=== PATIENT | female | born 1950 | race Caucasian/White ===

== ENCOUNTER 2020-08-12 12:51 | Outpatient (REF) | payer MEDICARE, SELFPAY ==
--- NOTE | 2020-08-12 | US_ITS ---
EXAMINATION: US EXTRACRANIAL CAROTID DUPLEX, BILATERAL CLINICAL INFORMATION: CAD COMPARISON: 05/25/2019, 04/17/2018 TECHNIQUE: Real-time ultrasound and Doppler techniques (integrating B-mode 2-D vascular images, Doppler spectral analysis and color-flow Doppler imaging) were utilized to interrogate the extracranial carotid arteries, the vertebral arteries and proximal subclavian arteries bilaterally. The degree of stenosis is determined by criteria similar to NASCET. FINDINGS: Right Side: 1. There is calcified atherosclerotic plaque seen in the bifurcation/proximal ICA region. 2. The common carotid artery PSV proximally is 93 cm/s and distally 85 cm/s. 3. The proximal internal carotid artery velocities are 179 cm/s systolic and 62 cm/s diastolic. 4. The proximal external carotid artery PSV is 174 cm/s. 5. The vertebral artery shows antegrade flow. 6. The subclavian artery waveforms are normal. Left Side: 1. There is calcified atherosclerotic plaque seen in the bifurcation/proximal ICA region. 2. The common carotid artery PSV proximally is 75 cm/s and distally 74 cm/s. 3. The proximal internal carotid artery velocities are 111 cm/s systolic and 39 cm/s diastolic. 4. The proximal external carotid artery PSV is 550 cm/s. 5. The vertebral artery shows antegrade flow. 6. The subclavian artery waveforms are normal. US/US carotid duplex BI IMPRESSION: 1. RIGHT: Moderate, hemodynamically significant stenosis of the proximal right internal carotid artery corresponding to a 50-79% stenosis by velocity criteria. 2. LEFT: Minimal, non-hemodynamically significant stenosis of the proximal left internal carotid artery corresponding to a 0-49% stenosis by velocity criteria. 3. Compared to the most recent prior exam, the disease on the right appears to have progressed from mild to moderate internal carotid artery stenosis, however the moderate stenosis seen on the current exam is in line with the study from 04/17/2018. Therefore, likely no significant change when compared over time. Disease on the left is stable.
== END 2020-08-12 12:52 | disposition home or self-care (01) ==
LOC: HO.HMGCX 12:51
PROVIDERS: PCP Internal Medicine; Visit Provider Internal Medicine Cardiovascular Disease
DX: I25.10 Atherosclerotic heart disease of native coronary artery without angina pectoris (principal); I65.23 Occlusion and stenosis of bilateral carotid arteries; E78.5 Hyperlipidemia, unspecified
CPT/HCPCS: 93880

== ENCOUNTER → 2020-09-01 09:53 | Outpatient (BNVA) | payer MEDICARE, BC, SELFPAY | PROVIDERS: PCP Internal Medicine; Visit Provider Surgery Vascular Surgery | DX: I65.23 Occlusion and stenosis of bilateral carotid arteries (principal) | CPT/HCPCS: 99212 ==

== ENCOUNTER → 2020-09-13 13:38 | Outpatient (BNVA) | payer MEDICARE, BC, SELFPAY | PROVIDERS: PCP Internal Medicine; Visit Provider Internal Medicine Cardiovascular Disease | DX: I25.118 Atherosclerotic heart disease of native coronary artery with other forms of angina pectoris (principal); I65.23 Occlusion and stenosis of bilateral carotid arteries | CPT/HCPCS: 93005; 99212 ==

== ENCOUNTER → 2020-09-21 08:36 | Outpatient (REF) | payer MEDICARE, BC, SELFPAY ==
--- NOTE | ~2020-09-21 | NM_ITS ---
EXERCISE MYOCARDIAL PERFUSION STUDY INDICATION: Chest pain, assess for coronary disease and ischemia TECHNIQUE: The patient was brought in for an exercise perfusion study on 09/21/2020. Patient performed exercise as per Omar protocol and was injected 25 mCi of sestamibi once target heart rate was achieved. Images were obtained using the SPECT gamma camera interlaced with the gating device. Images were obtained in supine position. Resting perfusion study was performed on 09/22/2020. Patient was administered 25 mCi of sestamibi intravenously at rest. Images were then obtained in supine position. Total DLP 62mGy-cm. Images were processed with the software and compared side to side in short axis, horizontal long axis and vertical long axis views. FINDINGS: Raw images were reviewed. The stress perfusion study showed diminished tracer uptake along the basal inferior wall and adjacent inferior septum; distal inferior septum and adjacent apex. There is improvement with CT attenuation correction but it does not normalizes completely. The gated study shows normal LV systolic function with calculated LVEF of 55%. LV cavity is normal in size. The gated study shows diminished contractility in the basal septum in parts of the apical septum/inferior septum. Resting study shows no significant perfusion abnormality. Gating at rest reveals normal wall motion with ejection fraction at 50%. The findings are consistent with reversible perfusion defect in the basal inferior septum; distal inferior wall and adjacent septum, apex. NM/NM cardiolite stress test IMPRESSION: 1. Myocardial perfusion imaging study shows ischemia along the inferior wall and inferior septum; most prominently seen in the basal inferior septum and towards the apex. 2. Gated LVEF is 55% during stress and 50% during rest.. 3. Transient ischemic dilatation not present. EKG component of the test reported separately.
--- NOTE | 2020-09-21 08:30 | CA_ITS ---
Acquisition Time: 2020-09-21 08:59:53 Total Exercise Time: 00:04:08 Test Indications: Chest Pain Medications: DILTIAZEM ASA CITALOPRAM HYDROXYZINE Protocol: OMAR Max HR: 150 BPM 100% of Pred: 150 BPM Max BP: 174/080 mmHG Max Work Load: 4.6 METS Exercise stress nuclear using Omar protocol. Test was modified as pt was becoming SOB and she was able to exercise for 4 min 8 sec. Pt denies any other anginal sx. EKG with multiple PVC's, Horizontal ST depressions seen inferiorly and laterally. Nuclear images to follow. Normotensive response to exercise. Test reviewed with Shan Morley METS 4.60 and TAPHR uo to 100 % Referred By: Steve Mai Overread By: Rosy Berry
== END ==
LOC: HO.CARD 08:36
PROVIDERS: Visit Provider Internal Medicine Cardiovascular Disease
DX: I25.119 Atherosclerotic heart disease of native coronary artery with unspecified angina pectoris (principal)
CPT/HCPCS: 78452; 93017; A9500

== ENCOUNTER → 2020-09-22 15:12 | Outpatient (BNVA) | payer MEDICARE, BC, SELFPAY | PROVIDERS: PCP Internal Medicine; Visit Provider Internal Medicine Cardiovascular Disease | DX: I25.118 Atherosclerotic heart disease of native coronary artery with other forms of angina pectoris (principal) | CPT/HCPCS: Q3014 ==

== ENCOUNTER 2020-09-23 13:17 | Outpatient (REF) | payer MEDICARE, BC, SELFPAY ==
[2020-09-23 14:23] LABS: Hemoglobin 9.6 g/dl (12.0-16.0); Mean Corpuscular Hemoglobin 21.9 pg (27.0-33.0); Mean Corpuscular Volume 73.1 fL (80-98); Mean Platelet Volume 10.6 fL (9.4-12.3); Platelet Count 392 X10*3/uL (160-400); Red Blood Count 4.38 X10*6/uL (4.20-5.50); Red Cell Distribution Width 22.4 % (11.0-16.0); White Blood Count 11.6 X10*3/uL (4.8-10.8)
[2020-09-23 14:30] LABS: Prothrombin Time 11.6 SEC (10.8-13.0)
[2020-09-23 14:43] LABS: Anion Gap 10 (12-20); Blood Urea Nitrogen 12 mg/dL (9-16); Calcium 9.1 mg/dL (8.4-10.2); Carbon Dioxide 24 mmol/L (22-29); Chloride 107 mmol/L (96-108); Estimated Glomerular Filt Rate > 60; Glucose Random 87 mg/dL (60-115); Potassium 4.1 mmol/L (3.3-5.1); Sodium 137 mmol/L (135-145)
== END 2020-09-23 13:18 | disposition home or self-care (01) ==
LOC: HO.LAB 13:17
PROVIDERS: PCP Internal Medicine; Visit Provider Internal Medicine Cardiovascular Disease
DX: I25.10 Atherosclerotic heart disease of native coronary artery without angina pectoris (principal)
CPT/HCPCS: 36415; 80048; 85027; 85610

== ENCOUNTER 2020-09-28 12:42 | Outpatient (REF) | payer MEDICARE, BC, SELFPAY ==
[2020-09-28 14:46] LABS: Iron 26 mcg/dL (30-160); Percent Iron Saturation 5 % (15-50); Total Iron Binding Capacity 507 mcg/dL (228-428); Unsaturated Iron Binding 481 ug/dL
[2020-09-28 14:54] LABS: Ferritin 3 ng/mL (10-250); TSH reflex Free T4 1.48 uIU/mL (0.32-4.0); Vitamin D 25-OH Total 38.9 ng/mL (>30)
[2020-09-29 19:01] LABS: Folate 11.8 ng/mL (> or = 4.0); Vitamin B12 525 pg/mL (200-900)
== END 2020-09-28 12:43 | disposition home or self-care (01) ==
LOC: HO.HMGCLDS 12:42
PROVIDERS: PCP Internal Medicine; Visit Provider Internal Medicine
DX: D64.9 Anemia, unspecified (principal); R12 Heartburn
CPT/HCPCS: 36415; 82306; 82607; 82728; 82746; 83540; 84443

== ENCOUNTER → 2020-10-03 07:31 | Outpatient (BNVA) | payer MEDICARE, BC, SELFPAY | PROVIDERS: Visit Provider Physician Assistant | DX: Z13.89 Encounter for screening for other disorder (principal) | CPT/HCPCS: Q3014 ==

== ENCOUNTER → 2020-10-13 12:38 | Outpatient (BNVA) | payer MEDICARE, BC, SELFPAY | PROVIDERS: PCP Internal Medicine; Visit Provider Internal Medicine Cardiovascular Disease | DX: Z01.810 Encounter for preprocedural cardiovascular examination (principal); Z79.899 Other long term (current) drug therapy; D64.9 Anemia, unspecified; I25.119 Atherosclerotic heart disease of native coronary artery with unspecified angina pectoris | CPT/HCPCS: 99212 ==

== ENCOUNTER 2020-10-24 11:51 | Outpatient (REF) | payer MEDICARE, BC, SELFPAY ==
[2020-10-24 14:40] LABS: MANUAL DIFF FLAG NO
[2020-10-24 14:49] LABS: Basophils Absolute Auto 0.1 X10*3/uL (0.0-0.2); Basophils Percent Auto 0.9 % (0-2); Eosinophils Absolute Auto 0.4 X10*3/uL (0.0-0.4); Eosinophils Percent Auto 3.7 % (0-4); Hematocrit 37.9 % (37-47); Hemoglobin 11.6 g/dl (12.0-16.0); Imm Gran Abs Auto 0.03 X10*3/uL (0.00-0.03); Imm Gran Pct Auto 0.3 % (0.0-0.4); Mean Corpuscular HGB Conc 30.6 g/dl (31.0-35.0); Mean Corpuscular Hemoglobin 24.8 pg (27.0-33.0); Mean Platelet Volume 11.1 fL (9.4-12.3); Monocytes Absolute Auto 0.6 X10*3/uL (0.1-1.2); Monocytes Percent Auto 5.4 % (2-11); Neutrophils Percent Auto 49.7 % (45-73); Platelet Count 337 X10*3/uL (160-400); Red Blood Count 4.68 X10*6/uL (4.20-5.50); Red Cell Distribution Width 29.2 % (11.0-16.0); White Blood Count 10.1 X10*3/uL (4.8-10.8)
[2020-10-24 15:25] LABS: Iron 46 mcg/dL (30-160); Percent Iron Saturation 11 % (15-50); Total Iron Binding Capacity 422 mcg/dL (228-428); Unsaturated Iron Binding 376 ug/dL
[2020-10-24 15:39] LABS: Ferritin 24 ng/mL (10-250)
== END 2020-10-24 11:52 | disposition home or self-care (01) ==
LOC: HO.HMGCLDS 11:51
PROVIDERS: PCP Internal Medicine; Visit Provider Internal Medicine
DX: D64.9 Anemia, unspecified (principal)
CPT/HCPCS: 36415; 82728; 83540; 85025

== ENCOUNTER 2020-10-26 09:26 | Day surgery (SDC) | payer MEDICARE, BC, SELFPAY ==
[2020-10-18 10:11] VITALS: BMI 23.8
--- NOTE | 2020-10-18 13:30 | P.CONAN_ITS ---
Documented by User: Josselyn Campos 10/25/20 09:31 HPI - Anesthesia Eval Consult details Narrative: 70yo F for Upper Endoscopy and Colonoscopy Per cardiology: Preprocedure cardiovascular evaluation in elderly woman with new onset iron deficiency anemia with some GI symptoms. These procedures are considered low risk from cardiovascular perspective. She does have some ischemia and prior coronary artery disease, however she is currently not having any progressive anginal symptoms and no signs or symptoms of heart failure. She is optimized to undergo surgery with low to intermediate risk for perioperative cardiovascular morbidity mortality. Continue her antianginal therapy in the perioperative.. Aspirin can be withheld for few days prior to the procedure if so required. Please consult us in the hilda procedural . If so required PMFSH Active Problems Active Problems: All Active Problems (Updated 10/18/20 @ 09:58 by Siomara Chapman) Carotid stenosis, bilateral (Acute) CAD (coronary artery disease) (Acute) Atypical angina (Acute) Preprocedural cardiovascular examination (Acute) Heartburn (Acute) Anemia (Acute) Hyperlipidemia (Acute) Coronary vasospasm (Acute) Past Medical History Medical History Anemia CAD (coronary artery disease) Coronary vasospasm Depression Dyslipidemia Heartburn Hx of carotid stenosis Hyperlipidemia Family History Family History Paternal Grandfather Stomach cancer Mother CAD (coronary artery disease) Brother No problems noted. Brother No problems noted. Brother No problems noted. Brother No problems noted. Sister No problems noted. Son No problems noted. Son No problems noted. Daughter No problems noted. Surgical History Surgical History History of dental surgery Hx of colonoscopy Status post cardiac catheterization Social History Social History Household Members: Children Are you a primary progressive care manager to a significant other at home: No Do you presently have visiting nurse or other home services: No Alcohol intake: current Alcohol intake frequency: holidays/special occasions only Alcohol type: wine Smoking Status: Former smoker Smoking Quit Date: Age 54 Use of substances other than those prescribed or required for medical reasons: No Have you been hit, kicked, punched, or otherwise hurt by someone within the past year? If so, by whom?: No Advance Directives: No Advance Directives Information Provided: No Advance Directives on File: No Recently lost weight without trying: No Current occupational status: retired Meds Allergies Allergy/AdvReac Type Severity Reaction Status Date / Time Penicillins Allergy Intermediate HIVES Verified 10/26/20 09:47 Home Medications Medication Instructions Recorded Confirmed Last Taken Type aspirin 81 mg tablet,delayed 81 mg PO DAILY 09/13/20 10/18/20 10/22/20 08:00 History release citalopram 20 mg tablet 20 mg PO DAILY tab 09/13/20 10/18/20 Unknown History rosuvastatin 40 mg tablet 40 mg PO DAILY tab 09/13/20 10/18/20 Unknown History Exam Exam Date and Time: October 18, 2020 1330 Height,Weight and Vital Signs: Height 5 ft 4 in Weight 63.049 kg Pertinent Lab Results Pertinent Lab Results: Laboratory Tests 09/23/20 09/23/20 13:35 13:35 WBC 11.6 H Hgb 9.6 L Hct 32.0 L Plt Count 392 Sodium 137 Potassium 4.1 Chloride 107 Carbon Dioxide 24 BUN 12 Creatinine 0.87 Narrative Narrative: EKG 09/2020 Normal sinus rhythm with PVCs with diffuse ST T wave changes more prominent in the inferior lead. NM cardiolite stress test IMPRESSION: 1. Myocardial perfusion imaging study shows ischemia along the inferior wall and inferior septum; most prominently seen in the basal inferior septum and towards the apex. 2. Gated LVEF is 55% during stress and 50% during rest.. 3. Transient ischemic dilatation not present. EKG component of the test reported separately. (Pt was scheduled for cath, but had to cancel d/t anemia.) Assessment and Plan Assessment Anesthesia Assessment: Chart Reviewed Documented by User: Bettye Martínez 10/26/20 11:06 [facility] Past Medical History Medical History Anemia CAD (coronary artery disease) Coronary vasospasm Depression Dyslipidemia Heartburn Hx of carotid stenosis Hyperlipidemia Family History Family History Paternal Grandfather Stomach cancer Mother CAD (coronary artery disease) Brother No problems noted. Brother No problems noted. Brother No problems noted. Brother No problems noted. Sister No problems noted. Son No problems noted. Son No problems noted. Daughter No problems noted. Surgical History Surgical History History of dental surgery Hx of colonoscopy Status post cardiac catheterization Social History Social History Household Members: Children Are you a primary progressive care manager to a significant other at home: No Do you presently have visiting nurse or other home services: No Alcohol intake: current Alcohol intake frequency: holidays/special occasions only Alcohol type: wine Smoking Status: Former smoker Smoking Quit Date: Age 54 Use of substances other than those prescribed or required for medical reasons: No Have you been hit, kicked, punched, or otherwise hurt by someone within the past year? If so, by whom?: No Advance Directives: No Advance Directives Information Provided: No Advance Directives on File: No Recently lost weight without trying: No Current occupational status: retired Meds Allergies Allergy/AdvReac Type Severity Reaction Status Date / Time Penicillins Allergy Intermediate HIVES Verified 10/26/20 09:47 Home Medications Medication Instructions Recorded Confirmed Last Taken Type aspirin 81 mg tablet,delayed 81 mg PO DAILY 09/13/20 10/18/20 10/22/20 08:00 History release citalopram 20 mg tablet 20 mg PO DAILY tab 09/13/20 10/18/20 Unknown History rosuvastatin 40 mg tablet 40 mg PO DAILY tab 09/13/20 10/18/20 Unknown History Exam Airway Mallampati Class: II TM Dist: >3cm Neck ROM: Full Denture: Upper Partial: Lower Loose/Missing/Broken Teeth: Yes Heart: RRR Lungs: CTA Assessment and Plan Assessment Anesthesia Assessment: Anesthesia Plan Discussed and Chart Reviewed Final Anesthetic Review NPO: Yes ASA Class: III Final Preanesthetic Review: Meds/Allgs Chart Reviewed, Consent Obtained/Reviewed and Anes Risks/Benef Reviewed Patient Risk: Intermediate Procedure Risk: Intermediate Anesthetic Plan Anesthetic Plan: MAC: Disposition: Standard PACU
[2020-10-26 09:54] VITALS: BP 137/64; PULSE 87; RESP 18; TEMP 37.2; O2SAT 97
[2020-10-26] MEDS: Lactated Ringers 1,000 ML 100 ML IVCONT (10:05)
--- NOTE | 2020-10-26 10:20 | MHC.SHP ---
Pre-Procedural Eval Section B Chief Complaint: anemia,heartburn Relevant Family History (Specify if Yes): No Relevant Social History: None Present Medications: see Short Stay Collaborative assessment Medical History: Significant History (Anemia CAD (coronary artery disease) Coronary vasospasm Depression Dyslipidemia Heartburn Hx of carotid stenosis Hyperlipidemia) History of Previous Operations: Relevant previous surgery/procedure and date(s) (History of dental surgery Hx of colonoscopy Status post cardiac catheterization) Allergies: Allergies Allergy/AdvReac Type Severity Reaction Status Date / Time Penicillins Allergy Intermediate HIVES Verified 10/26/20 09:47 Review of Systems Sugical H&P ROS: Negative: Constitution, Cardiovascular, Respiratory, Neurological, Psychiatric, Hem-Onc, Allergic/Immunologic, Gastrointestinal, Genitourinary, Musculoskeletal, Integumentary, Endocrine and Eyes/Ears/Nose/Throat Exam Surgical H&P Exam: Normal: HEENT, Normal: Heart, Normal: Lungs, Normal: Extremities, Normal: Abdomen, Normal: Skin and Normal: Neurological Plan Diagnosis/Plan: Unchanged I have reviewed the history and physical and performed a pertinent physical examination on my patient. No changes have occurred unless specified.
--- NOTE | 2020-10-26 10:37 | P.OP_ITS ---
Operative Note Operative Note Date of Service: 10/26/20 Narrative: Operative Information Procedure Description: EGD, Colonoscopy FLEXIBLE TRANSORAL UPPER GASTROINTESTINAL ENDOSCOPY AND COLONOSCOPY PROCEDURE NOTE UPPER ENDOSCOPY Consent: Indications for the procedure and potential complications of bleeding, perforation, reaction to medications and missed diagnosis were discussed with the patient and informed consent was obtained. Instrument: Olympus GIF H 190 J mid size upper endoscope Monitoring: Vital signs and clinical assessment, continuous EKG monitoring, Pulse oximetry, Carbon Dioxide monitoring and blood pressure monitoring were done throughout the procedure. Procedure: The patient was placed in the left lateral decubitis position and pre-procedure medications were administered and a bite block was placed. The endoscope was inserted into the mouth and advanced under direct vision to the third part of duodenum. A careful inspection was made as the upper endoscope was withdrawn including a retroflexed examination of the proximal stomach; Findings and interventions are described below. Findings: Larynx:normal Esophagus: GE junction at 34 cm, diaphragm hiatus at 38 cm, consistent with 4 cm sliding hiatal hernia, erosive esophagitis grade B noted, bx taken from GEJ Stomach: Normal mucosa. Biopsies were obtained. Grade 2 flap valve on retroflexed examination of the cardia. Duodenum: mild duodenitis, bx taken Intervention: Biopsies as noted above COLONOSCOPY Instrument: Olympus variable stiffness pediatric scope 190L Colonoscopy Monitoring: Vital signs and clinical assessment, continuous EKG monitoring, Pulse oximetry, Carbon Dioxide monitoring and blood pressure monitoring were done throughout the procedure. Colon withdrawal time was 14 minutes. Procedure: The patient was placed in the left lateral decubitis position and pre-procedure medications were administered. After a digital rectal examination of the ano-rectum, the video colonoscope was inserted into the rectum and advanced through the colon to the cecum/TI. The colonoscope was slowly withdrawn in a retrograde panoramic fashion and the colon mucosa was carefully examined including a retroflexed view of the rectum. Findings and interventions are described below. Procedure Difficulty:moderate Findings: Terminal Ileum-normal Cecum:normal Ascending Colon: 4-5 mm sessile polyp removed with forceps Transverse Colon -normal Descending Colon:normal Sigmoid Colon: moderate severe diverticulosis, with mucosal hypertrophy Rectum: Retroflexion with small internal hemorrhoids, grade I, lipoma also noted in distal rectum about 10-14 mm with pillow sign. Anorectum - normal Colon preparation: [place] Bowel Preparation Scale Right colon; 3 Transverse colon: 3 Left colon; 3 (0 = Unprepared colon segment with mucosa not seen due to solid stool that cannot be cleared. 1 = Portion of mucosa of the colon segment seen, but other areas of the colon segment not well seen due to staining, residual stool and/or opaque liquid. 2 = Minor amount of residual staining, small fragments of stool and/or opaque liquid, but mucosa of colon segment seen well. 3 = Entire mucosa of colon segment seen well with no residual staining, small fragments of stool or opaque liquid) Impression and Post Procedure Diagnosis: Endoscopy Findings: hiatal hernia, duodenitis erosive esophagitis Colonoscopy Findings: polyps internal hemorrhoids diverticular disease lipoma Plan: Await Pathology results Repeat Colonoscopy in 5 years or earlier if clinically indicated High fiber diet leaflet avoid straining at stool, epsom salts and sitz bath, anusol supps or cream as needed commence PP-pantoprazole 40 mg OD, can titrate down over time o/p capsule endoscopy Above findings were reviewed with the patient and relevant handouts were provided if indicated.
--- NOTE | 2020-10-26 10:37 | PM.OP ---
Brief Operative Note Date of Service: 10/26/20 Pre-op diagnosis: iron def anemia Post-op diagnosis: same Procedure: see op note Surgeon: Monique Adames MD Anesthesia: MAC Estimated blood loss (mL): 0 Condition: stable Disposition: PACU
[2020-10-26 11:22] VITALS: BP 91/40; PULSE 80; RESP 16; TEMP 36.6; O2SAT 97
[2020-10-26 11:37] VITALS: BP 106/63; PULSE 72; RESP 16; TEMP 36.4; O2SAT 97
== END 2020-10-26 12:30 | disposition home or self-care (01) ==
PROVIDERS: PCP Internal Medicine; Visit Provider Internal Medicine Gastroenterology
PROC: (CPT 45380; principal; 2020-10-26 10:30)
DX: D64.9 Anemia, unspecified (principal); D12.2 Benign neoplasm of ascending colon; K57.30 Diverticulosis of large intestine without perforation or abscess without bleeding; K63.89 Other specified diseases of intestine; K64.0 First degree hemorrhoids; D17.79 Benign lipomatous neoplasm of other sites; K21.9 Gastro-esophageal reflux disease without esophagitis; K22.10 Ulcer of esophagus without bleeding; K29.50 Unspecified chronic gastritis without bleeding; B96.81 Helicobacter pylori [H. pylori] as the cause of diseases classified elsewhere; K29.80 Duodenitis without bleeding; K44.9 Diaphragmatic hernia without obstruction or gangrene
CPT/HCPCS: 45380; 43239; 88305; 88342; J3010

== ENCOUNTER 2020-11-01 10:45 | Outpatient (REF) | payer MEDICARE, BC, SELFPAY ==
[2020-11-01 14:33] LABS: Alanine Aminotransferase 16 U/L (0-31); Anion Gap 15 (12-20); Aspartate Amino Transferase 19 U/L (5-31); Blood Urea Nitrogen 16 mg/dL (9-16); Calcium 9.5 mg/dL (8.4-10.2); Carbon Dioxide 23 mmol/L (22-29); Chloride 107 mmol/L (96-108); Cholesterol 186 mg/dL; Estimated Glomerular Filt Rate > 60; Glucose Fasting 98 mg/dL (60-99); HDL Cholesterol 84 mg/dL; LDL Cholesterol Calculated 88 mg/dl; Potassium 4.5 mmol/L (3.3-5.1); Sodium 140 mmol/L (135-145); Triglycerides 73 mg/dL
[2020-11-01 14:42] LABS: Vitamin D 25-OH Total 38.2 ng/mL (>30)
== END 2020-11-01 10:46 | disposition home or self-care (01) ==
LOC: HO.HMGCLDS 10:45
PROVIDERS: PCP Internal Medicine; Visit Provider Internal Medicine
DX: E78.5 Hyperlipidemia, unspecified (principal); I65.23 Occlusion and stenosis of bilateral carotid arteries; F33.42 Major depressive disorder, recurrent, in full remission
CPT/HCPCS: 36415; 80048; 80061; 82306; 84450; 84460

== ENCOUNTER → 2020-11-09 08:28 | Outpatient (BNVA) | payer MEDICARE, BC, SELFPAY | PROVIDERS: PCP Internal Medicine; Visit Provider Internal Medicine Gastroenterology | DX: D64.9 Anemia, unspecified (principal) | CPT/HCPCS: 91110 ==

== ENCOUNTER → 2020-12-02 10:42 | Outpatient (BNVA) | payer MEDICARE, BC, SELFPAY | PROVIDERS: PCP Internal Medicine; Visit Provider Internal Medicine Gastroenterology | DX: A04.8 Other specified bacterial intestinal infections (principal); D50.9 Iron deficiency anemia, unspecified; Z87.891 Personal history of nicotine dependence | CPT/HCPCS: Q3014 ==

== ENCOUNTER 2020-12-13 10:14 | Outpatient (REF) | payer MEDICARE, BC, SELFPAY ==
[2020-12-13 12:01] LABS: Hematocrit 39.5 % (37-47); Hemoglobin 12.5 g/dl (12.0-16.0); Mean Corpuscular HGB Conc 31.6 g/dl (31.0-35.0); Mean Corpuscular Volume 85.3 fL (80-98); Platelet Count 277 X10*3/uL (160-400); Red Blood Count 4.63 X10*6/uL (4.20-5.50); Red Cell Distribution Width 22.6 % (11.0-16.0); White Blood Count 9.8 X10*3/uL (4.8-10.8)
== END 2020-12-13 10:15 | disposition home or self-care (01) ==
LOC: HO.LAB 10:14
PROVIDERS: PCP Internal Medicine; Referring Provider Internal Medicine; Visit Provider Internal Medicine Cardiovascular Disease
DX: I25.118 Atherosclerotic heart disease of native coronary artery with other forms of angina pectoris (principal); D50.9 Iron deficiency anemia, unspecified; Z79.82 Long term (current) use of aspirin; Z79.899 Other long term (current) drug therapy
CPT/HCPCS: 36415; 85027; 99212

== ENCOUNTER → 2020-12-28 09:49 | Outpatient (BNVA) | payer MEDICARE, BC, SELFPAY | PROVIDERS: PCP Internal Medicine; Referring Provider Internal Medicine; Visit Provider Internal Medicine Gastroenterology ==

== ENCOUNTER 2021-03-24 12:16 | Outpatient (REF) | payer MEDICARE, BC, SELFPAY ==
--- NOTE | ~2021-03-24 | MM_ITS ---
EXAMINATION: MM SCREENING DIGITAL BREAST TOMOSYNTHESIS, BILATERAL CLINICAL INFORMATION: Screening. Asymptomatic. The lifetime risk of breast cancer based on the Tyrer-Cuzick Model is 3%. COMPARISON: Mammography: 10/06/2019, 01/14/2017, 05/27/2014 TECHNIQUE: Digital breast tomosynthesis is performed in both the craniocaudal and mediolateral oblique views along with computer-aided detection (CAD). Synthesized 2D images are generated from the tomosynthesis. Additional right MLO view is provided. FINDINGS: There are scattered areas of fibroglandular density (ACR BI-RADS breast composition Category b). There are no significant masses, abnormal calcifications, or other abnormalities. Parenchymal pattern is similar to prior studies. No significant changes. MM/MM tomosynthesis screening BI IMPRESSION: No mammographic evidence of malignancy. ASSESSMENT: BI-RADS 1: Negative RECOMMENDATION: Routine annual mammography screening. This patient's information was entered into a reminder system with a target due date for their next mammogram.
== END 2021-03-24 12:17 | disposition home or self-care (01) ==
LOC: HO.MAMMO 12:16
PROVIDERS: PCP Internal Medicine; Visit Provider Internal Medicine
DX: Z12.31 Encounter for screening mammogram for malignant neoplasm of breast (principal)
CPT/HCPCS: 77063; 77067

== ENCOUNTER → 2021-04-04 10:15 | Outpatient (BNVA) | payer MEDICARE, BC, SELFPAY | PROVIDERS: PCP Internal Medicine; Visit Provider Internal Medicine Gastroenterology | CPT/HCPCS: Q3014 ==

== ENCOUNTER → 2021-05-01 14:16 | Outpatient (BNVA) | payer MEDICARE, BC, SELFPAY | PROVIDERS: PCP Internal Medicine; Referring Provider Internal Medicine; Visit Provider Internal Medicine Cardiovascular Disease | DX: I25.10 Atherosclerotic heart disease of native coronary artery without angina pectoris (principal) | CPT/HCPCS: 99212 ==

== ENCOUNTER 2021-07-07 16:31 | Outpatient (REF) | payer MEDICARE, BC, SELFPAY ==
[2021-07-07 17:27] LABS: Influenza A PCR NEGATIVE (Negative); Influenza B PCR NEGATIVE (Negative); Resp Syncy Virus RNA Qual PCR NEGATIVE (Negative); SARS COV2 PCR INHOUSE NEGATIVE (Negative)
== END 2021-07-07 16:32 | disposition home or self-care (01) ==
LOC: HO.LNP 16:31
PROVIDERS: Visit Provider Internal Medicine
DX: R43.9 Unspecified disturbances of smell and taste (principal); Z20.822 Contact with and (suspected) exposure to COVID-19
CPT/HCPCS: 0241U

== ENCOUNTER 2021-08-28 10:25 | Outpatient (REF) | payer MEDICARE, BC, SELFPAY ==
--- NOTE | ~2021-08-28 | US_ITS ---
EXAMINATION: US EXTRACRANIAL CAROTID DUPLEX, BILATERAL CLINICAL INFORMATION: This is a 71-year-old female with carotid artery disease. COMPARISON: Comparison is made to a previous study dated 08/12/2020 which demonstrated 50-79% right internal carotid artery stenosis and 0-49% left internal carotid artery stenosis. TECHNIQUE: Real-time ultrasound and Doppler techniques (integrating B-mode 2-D vascular images, Doppler spectral analysis and color-flow Doppler imaging) were utilized to interrogate the extracranial carotid arteries, the vertebral arteries and proximal subclavian arteries bilaterally. The degree of stenosis is determined by criteria similar to NASCET. FINDINGS: Right Side: 1. There is moderate atherosclerotic plaque seen in the bifurcation/proximal ICA region. 2. The common carotid artery PSV proximally is 105 cm/s and distally 87 cm/s. 3. The proximal internal carotid artery velocities are 144 cm/s systolic and 40 cm/s diastolic. 4. The proximal external carotid artery PSV is 165 cm/s. There is no hemodynamically significant stenosis in the external carotid artery. 5. The vertebral artery shows antegrade flow. 6. The subclavian artery waveforms are normal. Left Side: 1. There is mild atherosclerotic plaque seen in the bifurcation/proximal ICA region. 2. The common carotid artery PSV proximally is 93 cm/s and distally 77 cm/s. 3. The proximal internal carotid artery velocities are 86 cm/s systolic and 33 cm/s diastolic. 4. The proximal external carotid artery PSV is 527 cm/s. There is a severe hemodynamically significant stenosis of the external carotid artery. This was seen previously. 5. The vertebral artery shows antegrade flow. 6. The subclavian artery waveforms are normal. An arrhythmia was noted during the duplex portion of the examination. US/US carotid duplex BI IMPRESSION: 1. RIGHT: Moderate, hemodynamically significant stenosis of the proximal right internal carotid artery corresponding to a 50-79% stenosis by velocity criteria. 2. LEFT: Minimal, non-hemodynamically significant stenosis of the proximal left internal carotid artery corresponding to a 0-49% stenosis by velocity criteria. 3. There is no change in the category severity of disease when compared to the previous study dated 08/12/2020.
== END 2021-08-28 10:26 | disposition home or self-care (01) ==
LOC: HO.US 10:25
PROVIDERS: Visit Provider Surgery Vascular Surgery
DX: I65.23 Occlusion and stenosis of bilateral carotid arteries (principal)
CPT/HCPCS: 93880

== ENCOUNTER → 2021-08-31 09:02 | Outpatient (BNVA) | payer MEDICARE, BC, SELFPAY | PROVIDERS: PCP Internal Medicine; Visit Provider Surgery Vascular Surgery | DX: I65.23 Occlusion and stenosis of bilateral carotid arteries (principal) | CPT/HCPCS: 99212 ==

== ENCOUNTER 2021-10-16 17:08 | Emergency (ER) | payer MEDICARE, BC, SELFPAY ==
--- NOTE | ~2021-10-16 | CT_ITS ---
EXAMINATION: CT HEAD WITHOUT CONTRAST CT CERVICAL SPINE WITHOUT CONTRAST CLINICAL INFORMATION: Fall. COMPARISON: None. TECHNIQUE: Imaging was performed from the skull base to vertex without intravenous administration of contrast. In addition, helical noncontrast CT imaging was acquired through the cervical spine and source images were reviewed along with axial reconstructions and sagittal and coronal MPRs. [This CT examination was performed using dose optimization techniques as appropriate, variously including the following: *Automated exposure control *Adjustment of mA and/or kV according to patient size (this includes techniques or standardized protocols for targeted exams where dose is matched to indication/reason for exam; i.e. extremities or head) *Use of iterative reconstruction technique] DLP: 1024 mGy-cm FINDINGS: HEAD: Small right frontal scalp hematoma. No skull fracture. No intracranial mass, hemorrhage, or midline shift is visualized. The ventricles and sulci are proportional. No extra-axial collections are identified. Small volume of mucosal thickening and possible small volume of fluid as well within the dependent bilateral maxillary and sphenoid sinuses. Frontal sinuses are hypoplastic. CERVICAL SPINE: There is no evidence of acute cervical spine fracture. Vertebral bodies remain normal in height. Cervical vertebrae have normal alignment. There is multilevel degenerative spondylosis of the cervical spine with disc height narrowing and endplate spurs and facet joint arthrosis No pre- or paravertebral soft tissue abnormality is identified. Limited assessment of the lung apices is unremarkable. CT/CT cervical spine wo con IMPRESSION: 1. No acute intracranial pathology. 2. No CT evidence of acute cervical spine fracture or traumatic subluxation
--- NOTE | ~2021-10-16 | CT_ITS ---
EXAMINATION: CT HEAD WITHOUT CONTRAST CT CERVICAL SPINE WITHOUT CONTRAST CLINICAL INFORMATION: Fall. COMPARISON: None. TECHNIQUE: Imaging was performed from the skull base to vertex without intravenous administration of contrast. In addition, helical noncontrast CT imaging was acquired through the cervical spine and source images were reviewed along with axial reconstructions and sagittal and coronal MPRs. [This CT examination was performed using dose optimization techniques as appropriate, variously including the following: *Automated exposure control *Adjustment of mA and/or kV according to patient size (this includes techniques or standardized protocols for targeted exams where dose is matched to indication/reason for exam; i.e. extremities or head) *Use of iterative reconstruction technique] DLP: 1024 mGy-cm FINDINGS: HEAD: Small right frontal scalp hematoma. No skull fracture. No intracranial mass, hemorrhage, or midline shift is visualized. The ventricles and sulci are proportional. No extra-axial collections are identified. Small volume of mucosal thickening and possible small volume of fluid as well within the dependent bilateral maxillary and sphenoid sinuses. Frontal sinuses are hypoplastic. CERVICAL SPINE: There is no evidence of acute cervical spine fracture. Vertebral bodies remain normal in height. Cervical vertebrae have normal alignment. There is multilevel degenerative spondylosis of the cervical spine with disc height narrowing and endplate spurs and facet joint arthrosis No pre- or paravertebral soft tissue abnormality is identified. Limited assessment of the lung apices is unremarkable. CT/CT head/brain wo con IMPRESSION: 1. No acute intracranial pathology. 2. No CT evidence of acute cervical spine fracture or traumatic subluxation
[2021-10-16 17:16] VITALS: BP 125/61; PULSE 95; RESP 18; O2SAT 96; BMI 27.3
[2021-10-16 17:22] VITALS: BP 128/74; PULSE 112; O2SAT 96
[2021-10-16 17:23] VITALS: TEMP 36.8
--- NOTE | 2021-10-16 17:25 | ECG_ITS ---
Test Reason : fall Blood Pressure : / mmHG Vent. Rate : 087 BPM Atrial Rate : 087 BPM P-R Int : 166 ms QRS Dur : 092 ms QT Int : 390 ms P-R-T Axes : 074 071 019 degrees QTc Int : 469 ms Sinus rhythm with occasional Premature ventricular complexes Otherwise normal ECG When compared with ECG of 21-APR-2013 11:10, Premature ventricular complexes are now Present Referred By: Viktor Alexander Electronically Signed By:LIAT POOLE
--- NOTE | 2021-10-16 17:26 | ED.FALL ---
HPI - Fall General Chief Complaint: Fall Stated Complaint: fall, + LOC with lacerations Time Seen by Provider: 10/16/21 17:16 Source: patient Mode of arrival: EMS Limitations: no limitations History of Present Illness HPI Narrative: Apparently patient had few drinks a lunchtime was at home with her son tripped and fell forward hitting her face to the ground no loss of consciousness has bleeding from the nose superficial abrasion on the nose and the face with hematoma to the right side of forehead no other injuries patient is on baby aspirin not on any blood thinner MD complaint: fall Related Data Home Medications Medication Instructions Recorded Confirmed aspirin 81 mg tablet,delayed 81 mg PO DAILY 09/13/20 05/01/21 release (Adult Low Dose Aspirin) citalopram 20 mg tablet 20 mg PO DAILY tab 09/13/20 05/01/21 pantoprazole 20 mg tablet,delayed 40 mg PO DAILY tab 12/02/20 05/01/21 release Previous Rx's Medication Instructions Recorded nitroglycerin 0.4 mg sublingual 0.4 mg SUBLINGUAL Q5M PRN 30 Days 09/13/20 tablet #20 tab ferrous fumarate 324 mg (106 mg 324 mg PO DAILY 30 Days #30 tab 09/28/20 iron) tablet ezetimibe 10 mg tablet 10 mg PO DAILY #30 tab 10/04/20 rosuvastatin 40 mg tablet 40 mg PO DAILY #90 tab 01/23/21 diltiazem HCl 240 mg 240 mg PO QAM #90 cap 05/31/21 capsule,extended release 24 hr albuterol sulfate 90 mcg/actuation 1 inh INHALATION QID PRN #6.7 g 07/07/21 aerosol inhaler azithromycin 250 mg tablet See Rx Instructions PO .COMPLEX #6 07/07/21 tab isosorbide mononitrate 30 mg 30 mg PO DAILY 90 Days #90 tab 09/04/21 tablet,extended release 24 hr Allergies Allergy/AdvReac Type Severity Reaction Status Date / Time Penicillins Allergy Intermediate HIVES Verified 10/16/21 17:22 Review of Systems Review of Systems: Yes all other systems are reviewed and are negative [facility] Past Medical History Medical History Anemia CAD (coronary artery disease) Coronary vasospasm Depression Dyslipidemia H. pylori infection Heartburn Hx of carotid stenosis Hyperlipidemia Iron deficiency anemia Recurrent major depression in partial remission Surgical History History of dental surgery Hx of colonoscopy Status post cardiac catheterization Family History Family History Paternal Grandfather Stomach cancer Mother CAD (coronary artery disease) Brother No problems noted. Brother No problems noted. Brother No problems noted. Brother No problems noted. Sister No problems noted. Son No problems noted. Son No problems noted. Daughter No problems noted. Social History Social History Household Members: Children Are you a primary critical care unit manager to a significant other at home: No Do you presently have visiting nurse or other home services: No Alcohol intake: current Alcohol intake frequency: holidays/special occasions only Alcohol type: wine Advance Directives: No Advance Directives Information Provided: No Current occupational status: retired Physical Exam Vital Signs: Vital Signs: Last Vital Signs Temp 98.2 F 10/16/21 19:10 Pulse 90 10/16/21 19:10 Resp 18 10/16/21 19:10 BP 146/76 H 10/16/21 19:10 Pulse Ox 97 10/16/21 19:10 BMI result Body Mass Index 27.3 Appearance: Alert. Oriented X3. No acute distress. Eyes: PERRLA, No Nystagmus HEENT: Pharynx normal. Oral Mucosa superficial 0.5 cm laceration to the nose bridge and right angle of the eye hematoma right forehead Neck: Normal inspection. Neck supple. No midline tenderness CVS: Normal heart rate and rhythm. Pulses normal. Respiratory: No respiratory distress. Equal air entry bilateral, no wheezing/rales/rhonchi Abdomen: Soft and nontender. Bowel sounds are present, no mass palpable, no CVA tenderness Skin: Skin warm and dry. Normal skin color. Normal skin turgor. Extremities: No lower extremity edema. No calf tenderness pelvis stable Neuro: Oriented X 3. No motor deficit. No sensory deficit.No cerebellar signs , cranial nerves II-XII intact Procedures Laceration Laceration 1: Site: face (nose) Size (cm): 0.5 Description: linear Depth: simple, single layer Skin layer closed with: other (dermabond) MDM - Fall MDM Narrative Medical decision making narrative: Patient status post mechanical fall after few drinks family was at the scene. CT scan of the head and CT neck is negative ,patient ambulatory in the ER will discharge patient home ECG Data Attestation: I personally reviewed and interpreted this ECG as follows: Interpretation: Normal sinus rhythm with heart rate 87 beats per minute normal intervals normal axis no acute STT wave changes no acute ischemia Discharge Plan Discharge Clinical Impression: Fall, Laceration of nose Patient Disposition: Home, Self-Care Instructions: Fall Prevention for Older Adults (ED), Facial Laceration (ED) Additional Instructions: Local care of the laceration as advised Cautions as advised Apply ice pack, take Tylenol for pain Prescriptions: No Action ezetimibe 10 mg tablet 10 mg PO DAILY Qty: 30 5RF rosuvastatin 40 mg tablet 40 mg PO DAILY Qty: 90 3RF diltiazem HCl 240 mg capsule,extended release 24hr 240 mg PO QAM Qty: 90 3RF isosorbide mononitrate 30 mg tablet extended release 24 hr 30 mg PO DAILY 90 Days Qty: 90 0RF ferrous fumarate 324 mg (106 mg iron) tablet 324 mg PO DAILY 30 Days Qty: 30 5RF Rx Instructions: take with orange juice for better azithromycin 250 mg tablet See Rx Instructions PO .COMPLEX Qty: 6 0RF Rx Instructions: take 500 mg today (day 1), then 250 mg for 4 days (days 2-5) PO albuterol sulfate 90 mcg/actuation HFA aerosol inhaler 1 inh inhalation QID PRN (Reason: shortness of breath or wheezing) Qty: 6.7 1RF citalopram 20 mg tablet 20 mg PO DAILY 0RF aspirin [Adult Low Dose Aspirin] 81 mg tablet,delayed release (DR/EC) 81 mg PO DAILY 0RF nitroglycerin 0.4 mg tablet, sublingual 0.4 mg sublingual Q5M PRN (Reason: chest pain) 30 Days Qty: 20 1RF Rx Instructions: do not exceed 3 doses per episode pantoprazole 20 mg tablet,delayed release (DR/EC) 40 mg PO DAILY 0RF Interventions: ED Discharge Assessment Last Done: 10/16/21 19:11 Discharge Date/Time: 10/16/21 19:11
--- NOTE | 2021-10-16 19:05 | PC.NURSE ---
Pt alert and oriented x4, calm and cooperative. Pt ambulated without issues, pt voided large amount in toilet. Pt states pain at abrasion sites on face, does not want meds. No IV in place. Vitals stable. Pt ambulated out of ER with son Daryn who drove her home.
[2021-10-16 19:10] VITALS: BP 146/76; PULSE 90; RESP 18; TEMP 36.8; O2SAT 97
== END 2021-10-16 19:11 | disposition home or self-care (01) ==
PROVIDERS: Emergency Provider Internal Medicine; PCP Internal Medicine
DX: S01.21XA Laceration without foreign body of nose, initial encounter (principal); S00.81XA Abrasion of other part of head, initial encounter; S00.83XA Contusion of other part of head, initial encounter; W01.198A Fall on same level from slipping, tripping and stumbling with subsequent striking against other object, initial encounter; Y93.9 Activity, unspecified; Y92.010 Kitchen of single-family (private) house as the place of occurrence of the external cause; Y99.9 Unspecified external cause status; Z79.82 Long term (current) use of aspirin
CPT/HCPCS: 12011; 70450; 72125; 93005; 99284

== ENCOUNTER → 2021-10-24 09:44 | Outpatient (BNVA) | payer MEDICARE, BC, SELFPAY | PROVIDERS: PCP Internal Medicine; Referring Provider Internal Medicine; Visit Provider Internal Medicine Cardiovascular Disease | DX: I25.10 Atherosclerotic heart disease of native coronary artery without angina pectoris (principal) | CPT/HCPCS: 99212 ==

== ENCOUNTER 2022-06-20 11:35 | Outpatient (REF) | payer MEDICARE, BC, SELFPAY ==
--- NOTE | ~2022-06-20 | MM_ITS ---
EXAMINATION: MM SCREENING DIGITAL BREAST TOMOSYNTHESIS, BILATERAL CLINICAL INFORMATION: Screening. Asymptomatic. COMPARISON: Mammography: 03/24/2021, 10/06/2019, 01/14/2017 TECHNIQUE: Digital breast tomosynthesis is performed in both the craniocaudal and mediolateral oblique views along with computer-aided detection (CAD). Synthesized 2D images are generated from the tomosynthesis. FINDINGS: There are scattered areas of fibroglandular density (ACR BI-RADS breast composition Category b). There are no significant masses, abnormal calcifications, or other abnormalities. Incidental small intramammary node again demonstrated central 9:00 right breast. There is no developing density. The axilla and skin contours are unremarkable. MM/MM tomosynthesis screening BI IMPRESSION: No mammographic evidence of malignancy. ASSESSMENT: BI-RADS 2: Benign RECOMMENDATION: Routine annual mammography screening. This patient's information was entered into a reminder system with a target due date for their next mammogram.
== END 2022-06-20 11:36 | disposition home or self-care (01) ==
LOC: HO.MAMMO 11:35
PROVIDERS: PCP Internal Medicine; Visit Provider Internal Medicine
DX: Z12.31 Encounter for screening mammogram for malignant neoplasm of breast (principal)
CPT/HCPCS: 77063; 77067

== ENCOUNTER 2022-08-27 09:49 | Outpatient (REF) | payer MEDICARE, BC, SELFPAY ==
--- NOTE | ~2022-08-27 | US_ITS ---
EXAMINATION: US EXTRACRANIAL CAROTID DUPLEX, BILATERAL CLINICAL INFORMATION: Carotid stenosis COMPARISON: 08/28/2021 TECHNIQUE: Real-time ultrasound and Doppler techniques (integrating B-mode 2-D vascular images, Doppler spectral analysis and color-flow Doppler imaging) were utilized to interrogate the extracranial carotid arteries, the vertebral arteries and proximal subclavian arteries bilaterally. The degree of stenosis is determined by criteria similar to NASCET. FINDINGS: Right Side: 1. There is moderate calcified atherosclerotic plaque seen in the bifurcation/proximal ICA region. 2. The common carotid artery PSV proximally is 96.2 cm/s and distally 93.2 cm/s. 3. The proximal internal carotid artery velocities are 153 cm/s systolic and 40.6 cm/s diastolic. 4. The proximal external carotid artery PSV is 202 cm/s. 5. The vertebral artery shows antegrade flow. 6. The subclavian artery waveforms are normal. Left Side: 1. There is mild atherosclerotic plaque seen in the bifurcation/proximal ICA region. 2. The common carotid artery PSV proximally is 90 cm/s and distally 64.3 cm/s. 3. The proximal internal carotid artery velocities are 101 cm/s systolic and 29.1 cm/s diastolic. 4. The proximal external carotid artery PSV is 112 cm/s. 5. The vertebral artery shows antegrade flow. 6. The subclavian artery waveforms are normal. US/US carotid duplex BI IMPRESSION: 1. RIGHT: Moderate, hemodynamically significant stenosis of the proximal right internal carotid artery corresponding to a 50-79% stenosis by velocity criteria. 2. LEFT: Minimal, non-hemodynamically significant stenosis of the proximal left internal carotid artery corresponding to a 0-49% stenosis by velocity criteria. 3. There is no change in the category severity of disease when compared to the previous study dated 08/28/2021.
== END 2022-08-27 09:50 | disposition home or self-care (01) ==
LOC: HO.HMGCX 09:49
PROVIDERS: PCP Internal Medicine; Visit Provider Surgery Vascular Surgery
DX: I65.23 Occlusion and stenosis of bilateral carotid arteries (principal)
CPT/HCPCS: 93880

== ENCOUNTER 2022-09-04 08:11 | Outpatient (REF) | payer MEDICARE, BC, SELFPAY ==
[2022-09-04 11:59] LABS: Hematocrit 43.2 % (37.0-47.0); Hemoglobin 14.5 g/dl (12.0-16.0); Mean Corpuscular HGB Conc 33.6 g/dl (31.0-35.0); Mean Corpuscular Hemoglobin 31.1 pg (27.0-33.0); Mean Corpuscular Volume 92.7 fL (80.0-98.0); Mean Platelet Volume 11.9 fL (9.4-12.3); Platelet Count 265 X10*3/uL (160-400); Red Blood Count 4.66 X10*6/uL (4.20-5.50); Red Cell Distribution Width 15.3 % (11.0-16.0); White Blood Count 8.7 X10*3/uL (4.8-10.8)
[2022-09-04 12:26] LABS: Anion Gap 13 (12-20); Blood Urea Nitrogen 12 mg/dL (9-16); Calcium 9.6 mg/dL (8.4-10.2); Carbon Dioxide 25 mmol/L (22-29); Chloride 109 mmol/L (96-108); Cholesterol 196 mg/dL; Estimated Glomerular Filt Rate > 60; Glucose Random 100 mg/dL (60-115); HDL Cholesterol 82 mg/dL; LDL Cholesterol Calculated 97 mg/dl; Potassium 4.4 mmol/L (3.3-5.1); Sodium 143 mmol/L (135-145); Triglycerides 86 mg/dL
[2022-09-06 14:28] LABS: CRP High Sensitivity 1.1 mg/L
== END 2022-09-04 08:12 | disposition home or self-care (01) ==
LOC: HO.HMGCLDS 08:11
PROVIDERS: PCP Internal Medicine; Visit Provider Internal Medicine Cardiovascular Disease
DX: I25.10 Atherosclerotic heart disease of native coronary artery without angina pectoris (principal); E78.5 Hyperlipidemia, unspecified
CPT/HCPCS: 36415; 80048; 80061; 85027; 86141

== ENCOUNTER 2022-09-18 09:50 | Outpatient (REF) | payer MEDICARE, BC, SELFPAY ==
--- NOTE | ~2022-09-18 | MM_ITS ---
EXAMINATION: BONE DENSITOMETRY CLINICAL INDICATION: Osteopenia. COMPARISON: Previous BD dated 10/06/2019 and baseline BD dated 11/19/2007. TECHNIQUE: Using a [employer] DXA System (software version: 13.1) manufactured by [employer], dual-energy x-ray absorptiometry was performed of the lumbar spine and left hip. The images are of good technical quality. Summary results are attached. FINDINGS: AP SPINE L1-L4: Current: BMD 1.158 g/cm2, Z-score 1.4, T-score -0.2, normal, 4.4% decrease from previous, 1.1% decrease from baseline (<5% change is not significant). Prior: BMD 1.211 g/cm2. Baseline: BMD 1.171 g/cm2. LEFT FEMUR, NECK: Current: BMD 0.864 g/cm2, Z-score 0.5, T-score -1.3, osteopenia. Prior: BMD 0.839 g/cm2. Baseline: BMD 0.893 g/cm2. LEFT FEMUR, TOTAL: Current: BMD 0.908 g/cm2, Z-score 0.7, T-score -0.8, normal, 6.2% decrease from previous, 9.3% decrease from baseline (<5% change is not significant). Prior: BMD 0.968 g/cm2. Baseline: BMD 1.001 g/cm2. IDENTIFIED RISK FACTORS: Menopause. HISTORY OF FRACTURE: None listed. MEDICATIONS: Calcium, vitamin D. MM/XR DEXA axial skeleton IMPRESSION: 1. DIAGNOSIS: Osteopenia based on the lowest T-score value of -1.3 in the femoral neck applying World Health Organization criteria. 2. 10-YEAR FRACTURE RISK PREDICTION, FRAX: Major osteoporotic fracture (clinical spine, forearm, hip or shoulder) 10.0%. Hip fracture 1.5%. 3. Treatment Recommendations: NOF guidelines recommend consideration for treatment in postmenopausal women and men age 50 and older presenting with the following: -A hip or vertebral (clinical or morphometric) fracture. -T-score less than or equal to -2.5 at the femoral neck or spine after appropriate evaluation to exclude secondary causes. -Low bone mass at the hip or spine and a 10-year fracture probability by FRAX of greater than or equal to 3% for hip fracture or greater than or equal to 20% for major osteoporotic fracture based on the [place] adapted WHO algorithm. 4. Other Recommendations: All treatment decisions require clinical judgment and consideration of individual patient factors, including patient preferences, comorbidities, previous drug use, risk factors not captured in the FRAX model (e.g. frailty, falls, vitamin D deficiency, increased bone turnover, interval significant decline in bone density) and possible under or overestimation of fracture risk by FRAX. Additional medical evaluation for secondary cause of low bone mineral density may be appropriate. FUTURE SCAN RECOMMENDATION: People with diagnosed cases of osteoporosis or at high risk for fracture should have regular bone mineral density tests. For patients eligible for Medicare, routine testing is allowed once every 2 years. The testing frequency can be increased to one year for patients who have rapidly progressing disease, those who are receiving or discontinuing medical therapy to restore bone mass, or have additional risk factors.
== END 2022-09-18 09:51 | disposition home or self-care (01) ==
LOC: HO.MAMMO 09:50
PROVIDERS: PCP Internal Medicine; Visit Provider Internal Medicine
DX: Z13.820 Encounter for screening for osteoporosis (principal); M85.852 Other specified disorders of bone density and structure, left thigh; Z78.0 Asymptomatic menopausal state
CPT/HCPCS: 77080

== ENCOUNTER → 2022-10-02 14:52 | Outpatient (BNVA) | payer MEDICARE, BC, SELFPAY | PROVIDERS: PCP Internal Medicine; Visit Provider Surgery Vascular Surgery | DX: I65.23 Occlusion and stenosis of bilateral carotid arteries (principal) | CPT/HCPCS: 99212 ==

== ENCOUNTER → 2022-10-30 09:55 | Outpatient (BNVA) | payer MEDICARE, BC, SELFPAY | PROVIDERS: PCP Internal Medicine; Referring Provider Internal Medicine; Visit Provider Internal Medicine Cardiovascular Disease | DX: I25.111 Atherosclerotic heart disease of native coronary artery with angina pectoris with documented spasm (principal) | CPT/HCPCS: 93005; 99212 ==

== ENCOUNTER 2023-06-26 11:36 | Outpatient (REF) | payer MEDICARE, BC, SELFPAY | END 2023-06-26 11:37 | disposition home or self-care (01) | LOC: HO.MAMMO 11:36 | PROVIDERS: PCP Internal Medicine; Visit Provider Internal Medicine | DX: Z12.31 Encounter for screening mammogram for malignant neoplasm of breast (principal) | CPT/HCPCS: 77063; 77067 ==

== ENCOUNTER → 2023-06-26 12:00 | Outpatient (BNV) | payer MEDICARE, BC, SELFPAY | PROVIDERS: PCP Internal Medicine; Visit Provider Radiology Diagnostic Radiology | DX: Z12.31 Encounter for screening mammogram for malignant neoplasm of breast (principal) | CPT/HCPCS: 77063; 77067 ==

== ENCOUNTER 2023-09-09 14:11 | Outpatient (REF) | payer MEDICARE, BC, SELFPAY ==
--- NOTE | ~2023-09-09 | US_ITS ---
EXAMINATION: US EXTRACRANIAL CAROTID DUPLEX, BILATERAL CLINICAL INFORMATION: Carotid artery stenosis COMPARISON: Carotid duplex on 08/27/2022 TECHNIQUE: Real-time ultrasound and Doppler techniques (integrating B-mode 2-D vascular images, Doppler spectral analysis and color-flow Doppler imaging) were utilized to interrogate the extracranial carotid arteries, the vertebral arteries and proximal subclavian arteries bilaterally. The degree of stenosis is determined by criteria similar to NASCET. FINDINGS: Right Side: 1. There is moderate atherosclerotic plaque seen in the bifurcation/proximal ICA region. 2. The common carotid artery PSV proximally is 95 cm/s and distally 88 cm/s. 3. The proximal internal carotid artery velocities are 160 cm/s systolic and 57 cm/s diastolic. 4. The proximal external carotid artery PSV is 191 cm/s. 5. The vertebral artery shows antegrade flow. 6. The subclavian artery waveforms are normal. Left Side: 1. There is mild atherosclerotic plaque seen in the bifurcation/proximal ICA region. 2. The common carotid artery PSV proximally is 85 cm/s and distally 74 cm/s. 3. The proximal internal carotid artery velocities are 100 cm/s systolic and 35 cm/s diastolic. 4. The proximal external carotid artery PSV is 150 cm/s. 5. The vertebral artery shows a grade flow. 6. The subclavian artery waveforms are normal. US/US carotid duplex BI IMPRESSION: 1. RIGHT: Moderate, hemodynamically significant stenosis of the proximal right internal carotid artery corresponding to a 50-79% stenosis by velocity criteria. 2. LEFT: Minimal, non-hemodynamically significant stenosis of the proximal left internal carotid artery corresponding to a 0-49% stenosis by velocity criteria. 3. There is no change in the category severity of disease when compared to the previous study dated 08/27/2022.
== END 2023-09-09 14:12 | disposition home or self-care (01) ==
LOC: HO.US 14:11
PROVIDERS: PCP Internal Medicine; Visit Provider Surgery Vascular Surgery
DX: I65.23 Occlusion and stenosis of bilateral carotid arteries (principal)
CPT/HCPCS: 93880

== ENCOUNTER 2023-10-03 12:49 | Outpatient (AMB) | payer MEDICARE, BC, SELFPAY ==
--- NOTE | 2023-10-03 12:57 | MHC.OFFVIS ---
Intake Vital Signs 10/03/23 12:58 10/03/23 13:06 Height 5 ft 4 in Weight 134 lb BMI 23.0 BP 138/74 136/76 Blood Pressure Location Rt brachial Lt brachial Position Sitting Sitting Intake Visit Reasons: 1 yr follow up Carotid US 09/09/2023 Intake Note: 1 yr follow up carotid US 09/09/23. Pt states no issues. States Hx of stroke and left eye vision loss Accompanied by: Self / Same As Patient Allergies Penicillins Allergy (Intermediate, Verified 10/03/23 13:03) HIVES HPI 1 yr follow up Carotid US 09/09/2023 HPI Details Very pleasant 73-year-old female presents for routine surveillance follow-up regarding her carotids. She has had no significant interval issues. She notes no lateralizing signs or symptoms, speech disturbances or visual field deficits. She reports that she has been doing much better. Of note she is being maintained on aspirin and statin. [facility] Medical History Osteopenia of left femoral neck Recurrent major depression in partial remission H. pylori infection Iron deficiency anemia Hx of carotid stenosis Depression Heartburn Anemia Hyperlipidemia Coronary vasospasm CAD (coronary artery disease) Dyslipidemia Surgical History History of dental surgery Hx of colonoscopy Status post cardiac catheterization Family History Paternal Grandfather Stomach cancer Mother CAD (coronary artery disease) Brother No problems noted. Brother No problems noted. Brother No problems noted. Brother No problems noted. Sister No problems noted. Son No problems noted. Son No problems noted. Daughter No problems noted. Social History Household Members: Children Are you a primary healthcare administrator to a significant other at home: No Do you presently have visiting nurse or other home services: No Alcohol intake: current Alcohol intake frequency: holidays/special occasions only Alcohol type: wine Current occupational status: retired Review of Systems Const All systems reviewed & are unremarkable except as noted in HPI and below Reports no additional complaints ENT Reports Normal hearing present Card Denies chest pain, Denies chest pain at rest, Denies chest pain with activity and Denies pedal edema Resp Denies cough GI Denies abdominal pain Musc Denies abnormal gait, Denies muscle cramps and Denies radiating pain into limb Skin/Breast Denies skin ulcer and Denies wounds Neuro Reports Normal hearing present and Denies abnormal gait Psych Reports no additional complaints Physical Exam Vital Signs: Last Vital Signs BP 136/76 10/03/23 13:06 BMI result Body Mass Index 23.0 Const General: cooperative, healthy appearing and comfortable Orientation/consciousness: oriented to person, oriented to place and oriented to time HEENT Head: Yes normal to inspection Neck Neck: Yes normal visual inspection Carotids: no bruits Chest Chest palpation & inspection: normal inspection of the chest Resp Effort & Inspection: normal respiratory effort and able to speak in complete sentences Auscultation: clear to auscultation bilaterally, no crackles, no rales, no rhonchi and no wheezes Cardio Rate: regular rate Rhythm: regular rhythm Heart sounds: S1 normal heart sound present and S2 normal heart sound present Bruits: no carotid bruits Peripheral pulses: Peripheral pulses 2+ throughout GI Inspection: Yes normal to inspection Skin Wounds: no wounds Hair: normal Neuro General: oriented to person, oriented to place and oriented to time Cranial nerves: Yes CN's II-XII intact bilaterally and Yes Normal hearing present Cognition (Neuro): normal cognition Motor exam (neuro): 5/5 motor strength present throughout Extrem Other: venous exam: No significant superficial varicosities or spider telangiectasias, minimal edema General: No clubbing, No cyanosis and No edema Psych Appearance: grossly normal Mental Status: mental status grossly normal Speech and movement: Normal speech and movement present Results Reviewed Results Reviewed: Ultrasound testing dated 09/09/2023 demonstrates right side 50-79% stenosis with a peak systolic velocity of only 160 in the left side of 0-49% stenosis no change from study year prior. Assessment & Plan Assessment & Plan (1) Carotid stenosis, bilateral: Code(s): I65.23 - Occlusion and stenosis of bilateral carotid arteries Plan: In short patient has asymptomatic carotid disease. We have reviewed signs and symptoms of a stroke. We also discussed risk factor modification inclusive a healthy diet low in cholesterol. The patient will follow up with us with surveillance ultrasound of the carotids 1 year. Should there be any changes or signs or symptoms of a stroke we will be happy to see them back sooner. Thank you for allowing us to participate in this patient's care. If there are any questions or concerns please do not hesitate to contact us. Orders: Orders US carotid duplex BI 1 Year I65.23 - Occlusion and stenosis of bilateral carotid arteries Coding Level of Care Code Est Pt Level 4 (63837) Diagnoses Carotid stenosis, bilateral I65.23
[2023-10-03 12:58] VITALS: BP 138/74; BMI 23.0
[2023-10-03 13:06] VITALS: BP 136/76
== END 2023-10-03 13:20 | disposition home or self-care (01) ==
PROVIDERS: PCP Internal Medicine; Visit Provider Surgery Vascular Surgery
DX: I65.23 Occlusion and stenosis of bilateral carotid arteries (principal)
CPT/HCPCS: 99213

== ENCOUNTER → 2023-10-03 12:49 | Outpatient (BNVA) | payer MEDICARE, BC, SELFPAY | PROVIDERS: PCP Internal Medicine; Visit Provider Surgery Vascular Surgery | DX: I65.23 Occlusion and stenosis of bilateral carotid arteries (principal) | CPT/HCPCS: 99212 ==

== ENCOUNTER 2023-10-28 09:24 | Outpatient (REF) | payer MEDICARE, BC, SELFPAY ==
[2023-10-28 13:25] LABS: Cholesterol 172 mg/dL (<200); HDL Cholesterol 80 mg/dL (>40); LDL Cholesterol Calculated 77 mg/dL (<100); Triglycerides 79 mg/dL (<150)
== END 2023-10-28 09:25 | disposition home or self-care (01) ==
LOC: HO.HMGCLDS 09:24
PROVIDERS: PCP Internal Medicine; Visit Provider Internal Medicine Cardiovascular Disease
DX: E78.5 Hyperlipidemia, unspecified (principal); I25.10 Atherosclerotic heart disease of native coronary artery without angina pectoris
CPT/HCPCS: 36415; 80061; 86141

== ENCOUNTER 2023-10-29 10:45 | Outpatient (AMB) | payer MEDICARE, BC, SELFPAY ==
[2023-10-29 10:51] VITALS: BP 120/70; PULSE 105; BMI 23.5
--- NOTE | 2023-10-29 10:51 | A.OFFVIS_ITS ---
Intake Vital Signs 10/29/23 10:51 Height 5 ft 4 in Weight 136 lb 10.986 oz BMI 23.5 BP 120/70 Blood Pressure Location Lt brachial Position Sitting Pulse 105 H Intake Visit Reasons: 1 year follow up Intake Note: 1 year follow-up with ekg hearts ok had covid last month still tried since [employer] Estimator Required: No Allergies Penicillins Allergy (Intermediate, Verified 10/03/23 13:03) HIVES Medication List - Last Reconciled 10/29/23 by Steve Mai MD aspirin (Adult Low Dose Aspirin) 81 mg PO DAILY diltiazem HCl 240 mg PO QAM ezetimibe 10 mg PO DAILY ferrous fumarate 324 mg PO DAILY 30 days isosorbide mononitrate ER 30 mg PO DAILY nitroglycerin 0.4 mg sublingual Q5M PRN 30 days pantoprazole 40 mg PO DAILY rosuvastatin 40 mg PO DAILY HPI HPI Comments History of Present Illness Details Carlene comes for follow-up. She said she had 2 viral illness is 1 COVID few months ago and more recently coming up with a viral illness with mostly upper respiratory symptoms with severe nasal congestion. She says she still feels weak but is coming around. She denies any exertional chest pain or worsening shortness of breath at current point time. She came in was noted to have some sinus tachycardia but with more ST depression in the inferior inferolateral lead compared to last year with sinus tachycardia. She denies any heart failure symptoms. She says she takes all her medications regularly. [facility], LATER [facility] Medical History Osteopenia of left femoral neck Recurrent major depression in partial remission H. pylori infection Iron deficiency anemia Hx of carotid stenosis Depression Heartburn Anemia Hyperlipidemia Coronary vasospasm CAD (coronary artery disease) Dyslipidemia Surgical History History of dental surgery Hx of colonoscopy Status post cardiac catheterization Family History Paternal Grandfather Stomach cancer Mother CAD (coronary artery disease) Brother No problems noted. Brother No problems noted. Brother No problems noted. Brother No problems noted. Sister No problems noted. Son No problems noted. Son No problems noted. Daughter No problems noted. Social History Household Members: Children Are you a primary health care coach to a significant other at home: No Do you presently have visiting nurse or other home services: No Alcohol intake: current Alcohol intake frequency: holidays/special occasions only Alcohol type: wine Current occupational status: retired Review of Systems Const Denies chills, Denies fatigue, Denies fever(s), Denies frequent falls, Denies weakness, Denies weight gain and Denies weight loss ENT Denies dizziness Card Denies chest pain, Denies leg edema, Denies lightheadedness, Denies palpitations, Denies dyspnea, Denies dyspnea on exertion, Denies orthopnea and Denies other (loss of consciousness) Resp Denies cough, Denies dyspnea and Denies dyspnea on exertion GI Denies hematochezia and Denies change in stool character Musc Denies abnormal gait, Denies muscle weakness, Denies numbness, Denies radiating pain into limb and Denies tingling Neuro Denies abnormal gait, Denies dizziness, Denies frequent falls, Denies numbness, Denies tingling and Denies weakness Endo Denies fatigue and Denies palpitations Physical Exam Vital Signs: Last Vital Signs Pulse 105 H 10/29/23 10:51 BP 120/70 10/29/23 10:51 BMI result Body Mass Index 23.5 Const General: cooperative, comfortable, no acute distress, alert, awake, anxious and well groomed Nutritional Appearance: thin Orientation/consciousness: patient oriented x3 Limitations: no limitations HEENT Head: Yes periorbital ecchymosis Neck Neck: Yes trachea midline, Yes supple and Yes no JVD Carotids: bruit Resp Effort & Inspection: normal respiratory effort Auscultation: clear to auscultation bilaterally Cardio Jugular venous distension: no JVD Palpation: normal PMI Rate: tachycardic Rhythm: regular rhythm Heart sounds: S1 normal heart sound present and S2 normal heart sound present GI Percussion: Yes normal to percussion Skin General skin exam: no rashes or lesions noted Neuro General: patient oriented x3 and no focal motor deficits Extrem General: Yes no clubbing, cyanosis or edema Psych Appearance: grossly normal Affect: Anxious affect present Office Procedures EKG Details: EKG shows sinus tachycardia with diffuse ST T wave changes in the inferior inferolateral leads suggestive of ischemia, could be rate related [id number], Complete Assessment & Plan Assessment & Plan (1) CAD (coronary artery disease): Code(s): I25.10 - Atherosclerotic heart disease of [place] coronary artery without angina pectoris Plan: CAD which was moderate by cardiac catheterization with superimposed coronary vaso spasm with no current symptoms suggestive angina although EKG looks quite abnormal with mild sinus tachycardia. Progressive coronary artery disease and severe myocardial ischemia needs to be ruled out. Will suggest exercise myocardial perfusion imaging in near future. Also suggest an echocardiogram to assess for LV systolic and diastolic function and evaluate for hypertensive heart disease. Further treatment based on the finding. Her LDL is improved with addition of ezetimibe but not at goal. Advise more intense diet modification. Follow-up lipids in 6 months time. Continue lifelong aspirin therapy. Continue current dual antianginal therapy with diltiazem as well as isosorbide. Continue participate in physical activity as tolerated. Will follow up in the clinic in 1 year's time, sooner p.r.n.. Thank you for allowing me to partake in the care Coding Level of Care Code Est Pt Level 4 (92274) Diagnoses CAD (coronary artery disease) I25.10 CPT Codes EKG - CPT: [id number], Complete ([id number])
== END 2023-10-29 11:18 | disposition home or self-care (01) ==
PROVIDERS: Visit Provider Internal Medicine Cardiovascular Disease
DX: I25.10 Atherosclerotic heart disease of native coronary artery without angina pectoris (principal)
CPT/HCPCS: 93010; 99214

== ENCOUNTER → 2023-10-29 10:45 | Outpatient (BNVA) | payer MEDICARE, BC, SELFPAY | PROVIDERS: Visit Provider Internal Medicine Cardiovascular Disease | DX: I25.10 Atherosclerotic heart disease of native coronary artery without angina pectoris (principal) | CPT/HCPCS: 93005; 99212 ==

== ENCOUNTER → 2023-12-02 07:55 | Outpatient (REF) | payer MEDICARE, BC, SELFPAY ==
--- NOTE | ~2023-12-02 | NM_ITS ---
Exercise Myocardial perfusion study Indication: Chest pain to evaluate for myocardial ischemia Technique: The patient was brought in for an exercise perfusion study on 12/02/2023. Patient performed exercise as per Omar protocol and was injected 25 mCi of sestamibi was given intravenously one target HR was achieved. Images were obtained using the SPECT gamma camera interlaced with the gating device. Images were obtained in supine position. Resting perfusion study was performed on 12/03/2023. Patient was administered 25 mCi of sestamibi intravenously at rest. Images were then obtained in supine position. Images obtained with and without CT attenuation. Total DLP 83 mGy-cm. Images were processed with the software and compared side to side in short axis, horizontal long axis and vertical long axis views. Findings: The stress perfusion study showed non attenuated images show large area of moderately reduced uptake in the inferior, inferoseptal and septal as well as absent uptake in the apex of the LV myocardium. Attenuated corrected images are suboptimal. The gated study shows normal LV systolic function with calculated LVEF of 68%. LV cavity is mildly dilated in size. The gated study shows normal systolic wall thickening and contraction of all segments. There is mild transient ischemic dilation. Resting study shows non attenuated images show normalized uptake in the inferior, apex, inferoseptal and septal wall of the LV myocardium. Gating at rest reveals normal systolic wall motion with ejection fraction at 58%. The findings are consistent with large area all moderate to severe intensity ischemia of the inferior, inferoseptal and septal as well as apical wall of the LV myocardium.. NM/NM cardiolite stress test Impression: 1. Large area all moderate to severe intensity inferior, inferoseptal, septal and apical ischemia RCA territory. 2. Gated LVEF is 68% 3. Transient ischemic dilatation present Stress EKG is positive for ischemia
--- NOTE | 2023-12-02 08:00 | CA_ITS ---
Acquisition Time: 2023-12-02 09:31:01 Total Exercise Time: 00:05:00 Test Indications: CP Medications: Protocol: RIC Max HR: 131 BPM 89% of Pred: 147 BPM Max BP: 148/076 mmHG Max Work Load: 6.0 METS Exercise stress test exercise 5 min achieivng 86% MPHR, with moderate SOB, without chest discomfort, with isolated PVCs and PACs, with normotensive resposne to exercise, with horizontal ST depressions 1-2 mm leads 2, 3, aVF, V3-V6. Breathing returned to baseline with rest. Nuclear images pending. Test reviewed with Dr. Torrez Referred By: Steve Mai Overread By: Margaret Molina
--- NOTE | 2023-12-02 08:00 | CA_ITS ---
Transthoracic Echocardiogram Patient (Last, First, Middle): Carlene Gannon M Gender: Female Date of : 1950 Age: 73 Procedure Date: 12/02/2023 Procedure Type: Transthoracic Echocardiogram Location: OP Height: 162. cm Weight: 61.24 kg BSA: 1.65 m2 Heart Rate: 71 bpm BP: 130 / 60 mmHg Paper Products Printer: DUSTIN Referring MD: Steve Mai MD Symptoms: I25.10 - Atherosclerotic heart disease of [place] coronary artery without... Study Quality: Fair ECG Rhythm: Sinus Conclusions: - The left ventricular systolic function is normal. The calculated ejection fraction is 63% by biplane method. - There is moderate calcification of the aortic valve. There is mild to moderate aortic valve stenosis. - Moderate plaque is seen in the sinuses of Valsalva. Findings Left Ventricle Normal left ventricular cavity size. There is normal left ventricular wall thickness. The left ventricular systolic function is normal. The calculated ejection fraction is 63% by biplane method. There is no evidence of regional wall motion abnormalities. Diastolic function is normal for age. LV peak GLS -16.8%. Right Ventricle Normal right ventricular cavity size and systolic function. Atria Both atria are normal in size. Aortic Valve There is moderate calcification of the aortic valve. There is mild to moderate aortic valve stenosis. There is no aortic valve regurgitation. Mitral Valve The mitral valve appears normal. There is trace mitral valve regurgitation. There is no mitral valve stenosis. Pulmonic Valve The pulmonic valve is likely normal. Tricuspid Valve Normal tricuspid valve structure. There is trace tricuspid valve regurgitation. There is no evidence of pulmonary hypertension. Great Vessels The asc aorta is normal in size. Moderate plaque is seen in the sinuses of Valsalva. Venous The inferior vena cava is normal in size and collapses greater than 50% with inspiration. Pericardium/Pleural There is no evidence of pericardial effusion. Prior Study Comparison Changes noted compared to prior study dated: 05/05/2014. see comment on aortic stenosis. Measurements 2D Linear Measurements IVSd: 1.01 0.6-0.9/0.6-1.0 cm LVIDd: 4.15 3.9-5.3/4.2-5.9 cm LVIDd Index: 2.52 2.4-3.2/2.2-3.1 cm/m2 LVIDs: 2.87 2.0-3.6 cm LVPWd: 0.91 0.7-1.1 cm LA Diam: 3.10 2.7-3.8/3.0-4.0 cm LAIDs Index: 1.88 1.5-2.3 cm/m2 LV Mass: 158.15 67-162/88-224 g LV Mass Index: 95.85 43-95/49-115 g/m2 LVOT Diam: 1.80 3.0+(-)1.3 cm 2D Systolic Function EF 4C: 63.70 >55% EF 2C: 59.10 >55% EF BiP: 62.70 >55% Mitral Valve MV Pk E: 0.98 MV PK A: 0.86 MV Decel Time: 235.00 E/A: 1.10 E'Lateral: 9.79 E'Medial: 7.62 E/E' Med: 12.90 E/E' Lat: 10.00 PHT: 69.00 MVA PHT: 3.19 Decel [place]: 4.17 Aortic Valve AoV Pk Wayne: 2.41 AoV Mn Wayne: 1.66 AoV VTI: 0.55 AoV Pk Grad: 23.00 Aov Mn Grad: 12.00 KYLIE Cont.VTI: 1.05 LVOT LVOT Pk Wayne: 0.94 LVOT Mn Wayne: 0.71 LVOT VTI: 0.23 LVOT Pk Grad: 3.00 LVOT Mn Grad: 2.00 LVOT Diam: 1.80 LVOT Area: 2.54 Diastolic Function MV Pk E: 0.98 MV Pk A: 0.86 E/A: 1.10 E'Medial: 7.62 E/E' Med: 12.90 E' Laterial: 9.79 E/E' Lat: 10.00 Right Ventricle TAPSE (mm): 21.60 TVS' Wayne: 8.16 Tricuspid Valve TR Pk Wayne: 2.05 TR Pk Grad: 17.00 RA Press: 3.00 RVSP: 20.00 Great Vessels Aorta Sinus of Valsalva: 2.70 2.0-3.5 cm Ao Asc: 2.90 2.1-3.4 cm Pulmonary Valve PV Pk Wayne: 1.36 Peak PV Grad: 7.00 Updated in Other Vendor System with Status of Final Daniel Torrez MD electronically signed on 12/02/2023 10:12:43 AM with status of Final
== END ==
LOC: HO.CARD 07:55
PROVIDERS: PCP Internal Medicine; Visit Provider Internal Medicine Cardiovascular Disease
DX: R07.9 Chest pain, unspecified (principal); I25.10 Atherosclerotic heart disease of native coronary artery without angina pectoris
CPT/HCPCS: 78452; 93017; 93306; 93356; A9500

== ENCOUNTER → 2023-12-02 08:00 | Outpatient (BNV) | payer MEDICARE, BC, SELFPAY | PROVIDERS: PCP Internal Medicine; Visit Provider Internal Medicine | DX: R07.9 Chest pain, unspecified (principal) | CPT/HCPCS: 78452; 93016; 93018; 93350; 93356 ==

== ENCOUNTER 2024-01-02 10:09 | Outpatient (REF) | payer MEDICARE, BC, SELFPAY ==
[2024-01-02 13:34] LABS: MANUAL DIFF FLAG NO
[2024-01-02 13:43] LABS: Basophils Absolute Auto 0.1 X10*3/uL (0.0-0.2); Eosinophils Absolute Auto 0.5 X10*3/uL (0.0-0.4); Eosinophils Percent Auto 5.8 % (0-4); Hematocrit 41.4 % (37.0-47.0); Hemoglobin 13.6 g/dl (12.0-16.0); Imm Gran Abs Auto 0.03 X10*3/uL (0.00-0.03); Imm Gran Pct Auto 0.4 % (0.0-0.4); Lymphocytes Percent Auto 36.2 % (20-40); Mean Corpuscular HGB Conc 32.9 g/dl (31.0-35.0); Mean Corpuscular Hemoglobin 30.2 pg (27.0-33.0); Mean Corpuscular Volume 91.8 fL (80.0-98.0); Mean Platelet Volume 11.5 fL (9.4-12.3); Monocytes Absolute Auto 0.5 X10*3/uL (0.1-1.2); Monocytes Percent Auto 6.3 % (2-11); Neutrophils Absolute Auto 4.2 x10*3/uL (2.0-8.3); Neutrophils Percent Auto 50.3 % (45-73); Platelet Count 230 X10*3/uL (160-400); Red Blood Count 4.51 X10*6/uL (4.20-5.50); Red Cell Distribution Width 14.6 % (11.0-16.0); White Blood Count 8.3 X10*3/uL (4.8-10.8)
[2024-01-02 13:46] LABS: INTERNATIONAL NORM RATIO 0.9 (0.9-1.1); Prothrombin Time 10.7 SEC (11.1-13.3)
[2024-01-02 14:19] LABS: Anion Gap 13 (12-20); Blood Urea Nitrogen 12 mg/dL (9-16); Calcium 9.9 mg/dL (8.4-10.2); Carbon Dioxide 23 mmol/L (22-29); Chloride 108 mmol/L (96-108); Estimated Glomerular Filt Rate > 60; Glucose Random 84 mg/dL (60-115); Potassium 3.9 mmol/L (3.3-5.1); Sodium 140 mmol/L (135-145)
== END 2024-01-02 10:10 | disposition home or self-care (01) ==
LOC: HO.HMGCLDS 10:09
PROVIDERS: PCP Internal Medicine; Visit Provider Internal Medicine Cardiovascular Disease
DX: R94.39 Abnormal result of other cardiovascular function study (principal); I25.118 Atherosclerotic heart disease of native coronary artery with other forms of angina pectoris; E78.5 Hyperlipidemia, unspecified
CPT/HCPCS: 36415; 80048; 85025; 85610

== ENCOUNTER → 2024-01-07 23:59 | Outpatient (BNV) | payer MEDICARE, BC, SELFPAY | PROVIDERS: PCP Internal Medicine; Visit Provider Internal Medicine Cardiovascular Disease | DX: I25.118 Atherosclerotic heart disease of native coronary artery with other forms of angina pectoris (principal) | CPT/HCPCS: 93458; 93571; 93572; 99152 ==

== ENCOUNTER 2024-02-25 09:45 | Outpatient (AMB) | payer MEDICARE, BC, SELFPAY ==
--- NOTE | 2024-02-25 09:46 | MHC.OFFVIS ---
Vital Signs 02/25/24 09:47 Height 5 ft 4 in Weight 130 lb 1.164 oz BMI 22.3 BP 120/78 Blood Pressure Location Lt brachial Position Sitting Pulse 67 Intake Visit Reasons: Heart Surgery Intake Note: Follow-up post CABG hearts doing good Allergies Penicillins Allergy (Intermediate, Verified 10/03/23 13:03) HIVES Medication List - Last Reconciled 02/25/24 by Steve Mai MD aspirin (Adult Low Dose Aspirin) 81 mg PO DAILY ezetimibe 10 mg PO DAILY metoprolol tartrate 50 mg PO BID nitroglycerin 0.4 mg sublingual Q5M PRN 30 days rosuvastatin 40 mg PO DAILY HPI Comments Details: Carlene comes for follow-up after recent open-heart surgery about a month ago. She said she is doing well but continues to have soreness at the sternotomy site as well as numbness in the left breast. She is slowly recuperating but still having limited energy. During the recording she had developed atrial fibrillation and she was started on amiodarone. No oral anticoagulation this was self-limiting. Amiodarone as to be discontinued 1 week's time as per her. Currently taking aspirin, metoprolol as well as ezetimibe and rosuvastatin therapy. Denies any anginal sounding chest discomfort. Denies any heart failure symptoms. Breathing is improved. Currently undergoing home physical therapy. [facility] Medical History Osteopenia of left femoral neck Recurrent major depression in partial remission H. pylori infection Iron deficiency anemia Hx of carotid stenosis Depression Heartburn Anemia Hyperlipidemia Coronary vasospasm CAD (coronary artery disease) Dyslipidemia Surgical History History of dental surgery Hx of colonoscopy Status post cardiac catheterization Family History Paternal Grandfather Stomach cancer Mother CAD (coronary artery disease) Brother No problems noted. Brother No problems noted. Brother No problems noted. Brother No problems noted. Sister No problems noted. Son No problems noted. Son No problems noted. Daughter No problems noted. Social History Household Members: Children Are you a primary long term care phlebotomist to a significant other at home: No Do you presently have visiting nurse or other home services: No Alcohol intake: current Alcohol intake frequency: holidays/special occasions only Alcohol type: wine Current occupational status: retired Review of Systems Const Denies chills, Denies fatigue, Denies fever(s), Denies frequent falls, Denies weakness, Denies weight gain and Denies weight loss ENT Denies dizziness Card Denies chest pain, Denies leg edema, Denies lightheadedness, Denies palpitations, Denies dyspnea, Denies dyspnea on exertion, Denies orthopnea and Denies other (loss of consciousness) Resp Denies cough, Denies dyspnea and Denies dyspnea on exertion GI Denies hematochezia and Denies change in stool character Musc Denies abnormal gait, Denies muscle weakness, Denies numbness, Denies radiating pain into limb and Denies tingling Neuro Denies abnormal gait, Denies dizziness, Denies frequent falls, Denies numbness, Denies tingling and Denies weakness Endo Denies fatigue and Denies palpitations Physical Exam Vital Signs: Last Vital Signs Pulse 67 02/25/24 09:47 BP 120/78 02/25/24 09:47 BMI result Body Mass Index 22.3 Const General: cooperative, comfortable, no acute distress, alert, awake, anxious, well groomed and other (Tired appearing ) Nutritional Appearance: thin Orientation/consciousness: patient oriented x3 Limitations: no limitations HEENT Head: Yes periorbital ecchymosis Neck Neck: Yes trachea midline, Yes supple and Yes no JVD Carotids: bruit Chest Chest palpation & inspection: other (healed sternotomy wound) Resp Effort & Inspection: normal respiratory effort Auscultation: clear to auscultation bilaterally Cardio Jugular venous distension: no JVD Palpation: normal PMI Rate: tachycardic Rhythm: regular rhythm Heart sounds: S1 normal heart sound present and S2 normal heart sound present GI Percussion: Yes normal to percussion Skin General skin exam: no rashes or lesions noted Neuro General: patient oriented x3 and no focal motor deficits Extrem General: Yes no clubbing, cyanosis or edema Psych Appearance: grossly normal Affect: Anxious affect present Assessment & Plan Assessment & Plan (1) S/P CABG x 2: Code(s): Z95.1 - Presence of aortocoronary bypass graft Category: Surgical Plan: Status post two-vessel coronary artery bypass grafting with no graft to the RCA as the vessel was too disease. PARK to LAD as well as saphenous vein graft to OMB. Patient healing well. Will schedule her for phase 2 cardiac rehabilitation near future. Continue very aggressive vascular risk factor modification. Blood pressure is well optimized. Continue metoprolol therapy. Continue dual therapy with high-intensity statin as well as ezetimibe therapy. Follow-up lipid panel in 6 weeks time. Will follow-up echocardiogram near future. Management was discussed in details. (2) Postoperative atrial fibrillation: Code(s): I97.89 - Other postprocedural complications and disorders of the circulatory system, not elsewhere classified; I48.91 - Unspecified atrial fibrillation Plan: Postoperative atrial fibrillation without any obvious clinical recurrence at this point time. Amiodarone can be discontinued a week's time. Follow-up Holter monitor in 2 weeks time. Discussed that usually postoperative atrial fibrillation in his limited and does not usually recur. Continue metoprolol for the long term care phlebotomist. No indication for antiarrhythmic drug therapy. Will follow up in the clinic in 6 weeks time, sooner p.r.n.. Thank you for allowing me to partake in her care Orders: Orders CA echo transthoracic complete 2 Weeks Z95.1 - Presence of aortocoronary bypass graft ECG holter monitor 48 hour 2 Weeks I48.91 - Unspecified atrial fibrillation, I97.89 - Other postprocedural complications and disorders of the circulatory system, not elsewhere classified, Z95.1 - Presence of aortocoronary bypass graft Lipid Panel 6 Weeks I25.10 - Atherosclerotic heart disease of [place] coronary artery without angina pectoris, Z95.1 - Presence of aortocoronary bypass graft Medications: New metoprolol tartrate 50 mg PO BID 180 tabs 3RF Z95.1 - Presence of aortocoronary bypass graft Coding Level of Care Code Est Pt Level 4 (44059) Diagnoses S/P CABG x 2 Z95.1 Postoperative atrial fibrillation I97.89; I48.91
[2024-02-25 09:47] VITALS: BP 120/78; PULSE 67; BMI 22.3
== END 2024-02-25 10:16 | disposition home or self-care (01) ==
PROVIDERS: PCP Internal Medicine; Visit Provider Internal Medicine Cardiovascular Disease
DX: Z95.1 Presence of aortocoronary bypass graft (principal); I97.89 Other postprocedural complications and disorders of the circulatory system, not elsewhere classified; I48.91 Unspecified atrial fibrillation
CPT/HCPCS: 99214

== ENCOUNTER → 2024-02-25 09:45 | Outpatient (BNVA) | payer MEDICARE, BC, SELFPAY | PROVIDERS: PCP Internal Medicine; Visit Provider Internal Medicine Cardiovascular Disease | DX: I97.89 Other postprocedural complications and disorders of the circulatory system, not elsewhere classified (principal); I48.91 Unspecified atrial fibrillation; Z95.1 Presence of aortocoronary bypass graft; Z79.899 Other long term (current) drug therapy | CPT/HCPCS: 99212 ==

== ENCOUNTER 2024-03-03 08:46 | Outpatient (AMB) | payer MEDICARE, BC, SELFPAY ==
[2024-03-03 08:48] VITALS: BP 118/70; PULSE 68; O2SAT 97; BMI 22.8
--- NOTE | 2024-03-03 08:48 | A.OFFPC_ITS ---
Vital Signs 03/03/24 08:48 Height 5 ft 4 in Weight 133 lb BMI 22.8 BP 118/70 Blood Pressure Location Rt brachial Position Sitting Pulse 68 Pulse Source Pulse Oximeter Pulse Oximetry (%) 97 Oxygen Delivery Method Room Air Intake Visit Reasons: Possible Hernia Intake Note: Pt is here today c/o Rt grown lump Allergies Penicillins Allergy (Intermediate, Verified 03/03/24 09:22) HIVES Tobacco use date assessed: 03/03/24 Fall risk assessment: No Falls in past year Last assessed Fall Risk: 03/03/24 Dental Screening Dental Screen Date: 03/03/24 Did you have a dental visit in the last 12 months?: No Did you have a dental problem in the last 6 months where you did not have access to dental care?: No Was dental information given to patient?: Patient has dentist HPI Possible Hernia HPI Details 73-year-old lady with history of coronar y artery disease status post CABG times a month ago , has bilateral carotid artery stenosis, osteopenia left femoral neck, hyperlipidemia, here today complaining of a lump on her right groin area which noticed a week ago. Mass is more pronounced when she coughs or stands for a long time. [facility] Medical History (Updated 03/03/24 @ 09:38 by Traci Gunn MD) Abdominal mass, right lower quadrant Osteopenia of left femoral neck Recurrent major depression in partial remission H. pylori infection Iron deficiency anemia Hx of carotid stenosis Depression Heartburn Anemia Hyperlipidemia Coronary vasospasm CAD (coronary artery disease) Dyslipidemia Surgical History (Updated 03/03/24 @ 09:24 by Traci Gunn MD) Status post aorto-coronary artery bypass graft History of dental surgery Hx of colonoscopy Status post cardiac catheterization Family History Paternal Grandfather Stomach cancer Mother CAD (coronary artery disease) Brother No problems noted. Brother No problems noted. Brother No problems noted. Brother No problems noted. Sister No problems noted. Son No problems noted. Son No problems noted. Daughter No problems noted. Social History Household Members: Children Housing: House Are you a primary healthcare social worker to a significant other at home: No Do you presently have visiting nurse or other home services: No Alcohol intake: current Alcohol intake frequency: holidays/special occasions only Alcohol type: wine Patient Tobacco Use Status: Former Tobacco user e-Cigarette/Vaping Use: Never Used Current occupational status: retired Cognitive needs: No Hearing needs: No Vision needs: Yes Questionnaire PHQ-9 Over the last 2 weeks, how often have you been bothered by any of the following problems? 1. Little interest or pleasure in doing things: not at all 2. Feeling down, depressed, or hopeless: not at all 3. Trouble falling or staying asleep, or sleeping too much: several days 4. Feeling tired or having little energy: several days 5. Poor appetite or overeating: not at all 6. Feeling bad about yourself - or that you are a failure or have let yourself or your family down: not at all 7. Trouble concentrating on things, such as reading the newspaper or watching television: not at all 8. Moving or speaking so slowly that other people could have noticed. Or the opposite - being so fidgety or restless that you have been moving around a lot more than usual: several days 9. Thoughts that you would be better off or of hurting yourself in some way: not at all Total score: 3 Depression Screening Interpretation: Negative Depression Screening Done: Yes 20849 - PHQ-9 Billing: Yes Source: Developed by Drs. Hardik Yi, Yecenia Spence, Valdo Delaney and colleagues, with an educational héctor from [employer]. Thrive Questionnaire Date Thrive assessed: 03/03/24 I am a: Patient What is your living situation today?: I have a steady place to live Within the past 12 months, did the food you bought not last and you didn't have the money to get more?: I choose not to answer this question Within the past 12 months, did you worry whether your food would run out before you got money to buy more?: I choose not to answer this question Do you have trouble paying for medicines?: No Do you have trouble getting transportation to medical appointments?: No Do you have trouble paying your heating and electricity bill?: No Do you have trouble taking care of your child, family member or friend?: No Do you have trouble with day-to-day activities such as bathing, preparing meals, shopping, managing finances, etc.?: No Are you currently unemployed and looking for a job?: No Are you interested in more education?: No Please select the resources that you would like help with: Housing/Skilled Nursing Currently or been in a relationship where the following occur: I choose not to answer THRIVE Score: 0 AUDIT C Alcohol Use Questionnaire (AUDIT-C) 1. How often do you have a drink containing alcohol?: Never Total Score: 0 JEROMY-7 AMB Questionnaire JEROMY-7 Date JEROMY - 7 assessed: 03/03/24 Feeling nervous, anxious, or on edge: 1 = Several days Not being able to stop or control worryin = Not at all Worrying too much about different things: 0 = Not at all Trouble relaxin = Not at all Being so restless that it is hard to sit still: 0 = Not at all Becoming easily annoyed or irritable: 0 = Not at all Feeling afraid as if something awful might happen: 0 = Not at all Total JEROMY-7 score (0-4 normal; 5-9 mild; 10-14 moderate; 15-21 severe): 1 Source: Developed by Drs. Hardik Yi, Yecenia Spence, Valdo Delaney and colleagues, with an educational héctor from [employer]. JEROMY-7 Assessment Billing JEROMY-7 Assessment Tool: JEROMY-7 Assessment 63723 Review of Systems Const All systems reviewed & are unremarkable except as noted in HPI and below Physical exam (Primary Care) Vital Signs: Last Vital Signs Pulse 68 03/03/24 08:48 BP 118/70 03/03/24 08:48 Pulse Ox 97 03/03/24 08:48 Oxygen Delivery Method Room Air 03/03/24 08:48 BMI result Body Mass Index 22.8 Tobacco/Smoking Status: Tobacco use Status Tobacco use date assessed 03/03/24 03/03/24 08:59 Patient Tobacco Use Status Former Tobacco user 03/03/24 08:59 e-Cigarette/Vaping Use Never Used 03/03/24 08:59 Depression Screening Interpretation: Negative Thrive Assessment: Date of Thrive Assessment Date Thrive assessed 03/03/24 03/03/24 08:59 Currently or been in a relationship where the following occur: I choose not to answer Const General: comfortable, no acute distress and alert HENMT Ears: external ears normal General nose exam: Normal external nose present Mouth: moist mucous membranes Eyes General: appearance normal, both eyes and all related structures Neck Neck: Yes full ROM, Yes no lymphadenopathy and Yes supple Resp Effort & Inspection: normal respiratory effort and able to speak in complete sentences Auscultation: clear to auscultation bilaterally Cardio Rate: regular rate Rhythm: regular rhythm Heart sounds: S1 normal heart sound present and S2 normal heart sound present GI Palpation (GI): Soft to palpation, nontender and Palpable mass present (Right lower quadrant pronounced with coughing) Auscultation: normal bowel sounds Assessment and Plan Assessment & Plan (1) Abdominal mass, right lower quadrant: Code(s): R19.03 - Right lower quadrant abdominal swelling, mass and lump Plan: Ordered ultrasound pelvic limited to check for presence of hernia. Patient advised to avoid any heavy lifting or straining. Orders: Orders US pelvic limited 03/03/24 R19.03 - Right lower quadrant abdominal swelling, mass and lump Coding Level of Care Code Est Pt Level 4 (88531) Diagnoses Abdominal mass, right lower quadrant R19.03 Additional Codes JEROMY-7 Assessment Billing - JEORMY-7 Assessment Tool: JEROMY-7 Assessment 59906 ([id number])
== END 2024-03-03 10:38 | disposition home or self-care (01) ==
PROVIDERS: PCP Internal Medicine; Visit Provider Internal Medicine
DX: R19.03 Right lower quadrant abdominal swelling, mass and lump (principal)
CPT/HCPCS: 99214

== ENCOUNTER 2024-03-03 09:53 | Outpatient (REF) | payer MEDICARE, BC, SELFPAY ==
--- NOTE | ~2024-03-03 | US_ITS ---
EXAMINATION: US PELVIS, LIMITED/FOLLOW UP CLINICAL INFORMATION: Right lower quadrant and right groin palpable lump COMPARISON: None available. TECHNIQUE: Real-time ultrasound examination of right groin and right lower abdomen FINDINGS: Targeted ultrasound examination of right inguinal region over the site of palpable lump shows right inguinal hernia containing peristalsing bowel loop and mesenteric fat, protruding through a gap in the rectus sheath measuring 2.2 cm in width. US/US pelvic limited IMPRESSION: Right inguinal hernia containing peristalsing bowel loop and mesenteric fat.
== END 2024-03-03 09:54 | disposition home or self-care (01) ==
LOC: HO.HMGCX 09:53
PROVIDERS: PCP Internal Medicine; Visit Provider Internal Medicine
DX: R19.03 Right lower quadrant abdominal swelling, mass and lump (principal)
CPT/HCPCS: 76857

== ENCOUNTER → 2024-03-10 12:51 | Outpatient (REF) | payer MEDICARE, BC, SELFPAY ==
--- NOTE | 2024-03-10 12:55 | HM_ITS ---
Conclusion: 1. Patient was monitored for total period of 2 days 2. Baseline was normal sinus rhythm with average heart of 64 beats per minute 3. No significant pauses or arrhythmias noted 4. No patient reported events MTDD
--- NOTE | 2024-03-10 12:55 | CA_ITS ---
Transthoracic Echocardiogram Patient (Last, First, Middle): Carlene Gannon M Gender: Female Date of : 1950 Age: 74 Procedure Date: 03/10/2024 Procedure Type: Transthoracic Echocardiogram Location: OP Height: 162.56 cm Weight: 60.33 kg BSA: 1.64 m2 Heart Rate: 64 bpm BP: 118 / 64 mmHg Advanced Practice Rn: SHANIQUA Referring MD: Steve Mai MD Sr. Consultant: Steve Mai MD Symptoms: s/p CABG Study Quality: Fair w/Contras ECG Rhythm: Sinus Conclusions: - 1. Normal LV ejection fraction of 60 65% with grade 2 diastolic dysfunction 2. [id number] aortic stenosis 3. No gross pericardial effusion Findings Procedure Information Contrast agent, definity, is being given per protocol without apparent complications. Left Ventricle Normal left ventricular size, thickness, and systolic function. The visually estimated ejection fraction is between 60-65%. There is paradoxical septal motion consistent with post-operative status. Spectral Doppler is indicative of a pseudonormal filling pattern. E/E prime ratio is >15, consistent with elevated filling pressures. Evidence suggests grade II (moderate) diastolic dysfunction. Right Ventricle Normal right ventricular cavity size and systolic function. Atria The left atrium is mildly dilated. There is no evidence of interatrial shunt. The right atrium is normal in size. Aortic Valve There is mild calcification of the aortic valve. There is mild to moderate aortic valve stenosis. The peak aortic velocity is 2.16 m/s with a calculated peak gradient of 19 mmHg. The mean gradient is 10 mmHg. The aortic valve area is 1.24 cm2. There is no aortic valve regurgitation. Mitral Valve There is mild anterior and posterior mitral leaflet thickening. There is mild anterior and mild posterior mitral annular calcification. There is trace mitral valve regurgitation. There is no mitral valve stenosis. Tricuspid Valve Likely normal tricuspid valve structure and function. Tricuspid regurgitation envelope is inadequate for calculation of right ventricular systolic pressure. Normal right atrial pressure. Great Vessels All visible segments of the aorta are normal in size. The pulmonary artery was not well visualized. There is no dilatation of the ascending aorta measuring 2.80 cm. Moderate plaque is seen in the sino tubular ridge. Venous The inferior vena cava is normal in size. Pericardium/Pleural There is no evidence of pericardial effusion. Prior Study Comparison No significant change compared to prior study dated: 12/02/2023. Measurements 2D Linear Measurements IVSd: 0.85 0.6-0.9/0.6-1.0 cm LVIDd: 4.09 3.9-5.3/4.2-5.9 cm LVIDd Index: 2.49 2.4-3.2/2.2-3.1 cm/m2 LVIDs: 2.68 2.0-3.6 cm LVPWd: 0.62 0.7-1.1 cm LA Diam: 3.20 2.7-3.8/3.0-4.0 cm LAIDs Index: 1.95 1.5-2.3 cm/m2 LV Mass: 107.41 67-162/88-224 g LV Mass Index: 65.49 43-95/49-115 g/m2 LVOT Diam: 2.00 3.0+(-)1.3 cm 2D Systolic Function EF 4C: 64.10 >55% EF 2C: 52.80 >55% EF BiP: 60.90 >55% Mitral Valve MV Pk E: 0.90 MV PK A: 0.81 MV Decel Time: 193.00 E/A: 1.10 E'Lateral: 4.38 E'Medial: 3.16 E/E' Med: 28.60 E/E' Lat: 20.60 PHT: 56.00 MVA PHT: 3.93 Decel [place]: 4.69 Aortic Valve AoV Pk Wayne: 2.16 AoV Mn Wayne: 1.46 AoV VTI: 0.50 AoV Pk Grad: 19.00 Aov Mn Grad: 10.00 KYLIE Cont.VTI: 1.24 LVOT LVOT Pk Wayne: 0.88 LVOT Mn Wayne: 0.61 LVOT VTI: 0.20 LVOT Pk Grad: 3.00 LVOT Mn Grad: 2.00 LVOT Diam: 2.00 LVOT Area: 3.14 Diastolic Function MV Pk E: 0.90 MV Pk A: 0.81 E/A: 1.10 E'Medial: 3.16 E/E' Med: 28.60 E' Laterial: 4.38 E/E' Lat: 20.60 Right Ventricle TVS' Wayne: 4.62 Tricuspid Valve TR Pk Wayne: 2.06 TR Pk Grad: 17.00 Great Vessels Aorta Sinus of Valsalva: 2.80 2.0-3.5 cm Ao Asc: 2.80 2.1-3.4 cm Pulmonary Valve PV Pk Wayne: 1.04 Peak PV Grad: 4.00 Updated in Other Vendor System with Status of Final Steve Mai MD electronically signed on 03/10/2024 4:41:00 PM with status of Final
== END ==
LOC: HO.CARD 12:51
PROVIDERS: Visit Provider Internal Medicine Cardiovascular Disease
DX: I48.91 Unspecified atrial fibrillation (principal); I97.89 Other postprocedural complications and disorders of the circulatory system, not elsewhere classified; Z95.1 Presence of aortocoronary bypass graft
CPT/HCPCS: 93225; 93306; Q9957

== ENCOUNTER → 2024-03-10 12:55 | Outpatient (BNV) | payer MEDICARE, BC, SELFPAY | PROVIDERS: Visit Provider Internal Medicine Cardiovascular Disease | DX: I97.190 Other postprocedural cardiac functional disturbances following cardiac surgery (principal); Z95.1 Presence of aortocoronary bypass graft | CPT/HCPCS: 93227; 93306 ==

== ENCOUNTER 2024-03-17 15:10 | Outpatient (AMB) | payer MEDICARE, BC, SELFPAY ==
--- NOTE | 2024-03-17 15:15 | MHC.OFFVIS ---
Vital Signs 03/17/24 15:34 Height 5 ft 4 in Weight 132 lb BMI 22.7 BP 120/72 Blood Pressure Location Lt brachial Position Sitting Intake Visit Reasons: Right inguinal hernia Intake Note: Patient is seen in office for evaluation of a right inguinal hernia. Pt c/o: notice a lump on the right groin, painful at times, had triple bypass on that side for vein graft, admits to constipation, denies n/v/d Bundles Hanger Required: No Accompanied by: Self / Same As Patient Allergies Penicillins Allergy (Intermediate, Verified 03/17/24 15:32) HIVES Medication List - Last Reconciled 03/19/24 by Marcos Dennis MD aspirin (Adult Low Dose Aspirin) 81 mg PO DAILY ezetimibe 10 mg PO DAILY metoprolol tartrate 50 mg PO BID rosuvastatin 40 mg PO DAILY HPI Comments Details: 74-year-old female patient presenting for evaluation of a right inguinal hernia. She has a significant cardiac history and recently underwent two-vessel CABG. She is still sore from the surgery and is awaiting cardiac rehabilitation. She noted a lump in the right groin which occasionally causes discomfort. She denies any nausea, vomiting, fever or chills. She denies a previous history of hernias or hernia surgery. She presents today to discuss her options regarding management of this hernia. [facility] Medical History Right inguinal hernia Abdominal mass, right lower quadrant Osteopenia of left femoral neck Recurrent major depression in partial remission H. pylori infection Iron deficiency anemia Hx of carotid stenosis Depression Heartburn Anemia Hyperlipidemia Coronary vasospasm CAD (coronary artery disease) Dyslipidemia Surgical History Status post aorto-coronary artery bypass graft History of dental surgery Hx of colonoscopy Status post cardiac catheterization Family History Paternal Grandfather Stomach cancer Mother CAD (coronary artery disease) Brother No problems noted. Brother No problems noted. Brother No problems noted. Brother No problems noted. Sister No problems noted. Son No problems noted. Son No problems noted. Daughter No problems noted. Social History Household Members: Children Housing: House Are you a primary workforce investment act career manager to a significant other at home: No Do you presently have visiting nurse or other home services: No Alcohol intake: current Alcohol intake frequency: holidays/special occasions only Alcohol type: wine Patient Tobacco Use Status: Former Tobacco user e-Cigarette/Vaping Use: Never Used Current occupational status: retired Cognitive needs: No Hearing needs: No Vision needs: Yes Review of Systems Const All systems reviewed & are unremarkable except as noted in HPI and below Denies chills, Denies fever(s), Denies headache(s), Denies poor appetite and Denies weakness ENT Denies headache(s) Card Denies chest pain, Denies irregular heart rhythm, Denies palpitations and Reports dyspnea Resp Denies cough, Denies excessive phlegm production and Reports dyspnea GI Reports as per HPI, Reports abdominal pain, Denies bloating, Denies change in bowel habits, Denies constipation, Denies heartburn, Denies diarrhea, Denies nausea and Denies vomiting Denies urinary frequency Musc Denies back pain, Denies muscle weakness and Denies numbness Skin/Breast Denies changing lesions and Denies unusual bruising Neuro Denies headache(s), Denies numbness, Denies paresthesias and Denies weakness Psych Denies anxiety and Denies depression Endo Denies palpitations Miguel A/Lymph Denies lymphadenopathy Physical Exam Vital Signs: Last Vital Signs BP 120/72 03/17/24 15:34 BMI result Body Mass Index 22.7 Const General: cooperative and no acute distress Nutritional Appearance: well nourished Orientation/consciousness: patient oriented x3 Limitations: no limitations HEENT Head: Yes normocephalic and Yes atraumatic Ears: hearing grossly normal bilaterally Resp Effort & Inspection: normal respiratory effort, no audible wheezes, no cough and no respiratory distress Cardio Jugular venous distension: no JVD GI Other: Palpable right inguinal hernia noted in the standing position which is easily reducible with light pressure. There is no tenderness to palpation. No left inguinal hernias appreciated. Inspection: Yes normal to inspection Palpation (GI): Soft to palpation, nontender, no guarding and not rigid Skin Other: Warm, dry, no rash Neuro General: patient oriented x3 Extrem General: Yes no clubbing, cyanosis or edema Assessment & Plan Assessment & Plan (1) Right inguinal hernia: Code(s): K40.90 - Unilateral inguinal hernia, without obstruction or gangrene, not specified as recurrent Category: Medical Plan 74-year-old female patient presenting for evaluation of a right inguinal hernia. On examination she has an easily be reducible right inguinal hernia which is nontender to palpation. No other hernias are appreciated. In an ideal world this should be repaired however with her recent cardiac surgery and need for cardiac rehabilitation, the repair can be delayed as long as she remains asymptomatic. We discussed the use of a hernia truss which may provide symptomatic relief while she is undergoing rehabilitation. Once she is cleared from a cardiac standpoint we can certainly schedule repair of this right inguinal hernia. I reviewed the symptoms and signs which would indicate a need for a more emergent repair. The patient expressed understanding and agrees with the plan. Coding Level of Care Code New Pt Level 4 (90307) Diagnoses Right inguinal hernia K40.90
[2024-03-17 15:34] VITALS: BP 120/72; BMI 22.7
== END 2024-03-17 15:43 | disposition home or self-care (01) ==
PROVIDERS: PCP Internal Medicine; Visit Provider Surgery
DX: K40.90 Unilateral inguinal hernia, without obstruction or gangrene, not specified as recurrent (principal)
CPT/HCPCS: 99204

== ENCOUNTER → 2024-03-17 15:10 | Outpatient (BNVA) | payer MEDICARE, BC, SELFPAY | PROVIDERS: PCP Internal Medicine; Visit Provider Surgery | DX: K40.90 Unilateral inguinal hernia, without obstruction or gangrene, not specified as recurrent (principal) | CPT/HCPCS: 99202 ==

== ENCOUNTER 2024-03-27 08:08 | Outpatient (REF) | payer MEDICARE, BC, SELFPAY ==
[2024-03-27 10:55] LABS: Cholesterol 169 mg/dL (<200); HDL Cholesterol 67 mg/dL (>40); LDL Cholesterol Calculated 78 mg/dL (<100); Triglycerides 120 mg/dL (<150)
== END 2024-03-27 08:09 | disposition home or self-care (01) ==
LOC: HO.HMGCLDS 08:08
PROVIDERS: PCP Internal Medicine; Visit Provider Internal Medicine Cardiovascular Disease
DX: I25.10 Atherosclerotic heart disease of native coronary artery without angina pectoris (principal); Z95.1 Presence of aortocoronary bypass graft
CPT/HCPCS: 36415; 80061

== ENCOUNTER 2024-03-30 08:37 | Outpatient (AMB) | payer MEDICARE, BC, SELFPAY ==
[2024-03-30 08:39] VITALS: BP 134/72; PULSE 78; BMI 22.6
--- NOTE | 2024-03-30 08:39 | A.OFFVIS_ITS ---
Vital Signs 03/30/24 08:39 Height 5 ft 4 in Weight 131 lb 13.383 oz BMI 22.6 BP 134/72 Blood Pressure Location Lt brachial Position Sitting Pulse 78 Pulse Source Pulse Oximeter Intake Visit Reasons: fu echo/ holter Allergies Penicillins Allergy (Intermediate, Verified 03/30/24 08:42) HIVES Medication List - Last Reconciled 03/30/24 by Danitza Velez [employer]ATING SUPERVISOR-C aspirin (Adult Low Dose Aspirin) 81 mg PO DAILY bempedoic acid (Nexletol) 180 mg PO DAILY ezetimibe 10 mg PO DAILY metoprolol tartrate 50 mg PO BID rosuvastatin 40 mg PO DAILY HPI HPI fu echo/ holter: Details: Carlene is a 74-year-old female past medical history of hyperlipidemia, carotid stenosis, CAD, coronary artery bypass grafting two-vessel 01/29/2024, postop AFib presents for follow-up after recent echocardiogram and Holter monitor. Today she reports that she has mild discomfort and numbness in her anterior chest from her sternotomy. This is bothersome to her. She has no other types of chest discomfort. She tells me her breathing is back to normal. No PND, orthopnea or edema. No palpitations, lightheadedness, presyncope, syncope. She has discomfort and numbness in the medial aspect of her right lower leg from the SVG harvest. She describes this as improving but still bothersome. She is in cardiac rehab twice weekly. She has increased her walking at home. Overall she feels that she is improving but still has some weakness. She recently discovered a hernia in her right inguinal region. It is not bothering her at present. She is taking all her meds as directed. [facility] Medical History Right inguinal hernia Abdominal mass, right lower quadrant Osteopenia of left femoral neck Recurrent major depression in partial remission H. pylori infection Iron deficiency anemia Hx of carotid stenosis Depression Heartburn Anemia Hyperlipidemia Coronary vasospasm CAD (coronary artery disease) Dyslipidemia Surgical History (Updated 03/30/24 @ 11:40 by Danitza Velez NP-C) Status post aorto-coronary artery bypass graft History of dental surgery Hx of colonoscopy Status post cardiac catheterization Family History Paternal Grandfather Stomach cancer Mother CAD (coronary artery disease) Brother No problems noted. Brother No problems noted. Brother No problems noted. Brother No problems noted. Sister No problems noted. Son No problems noted. Son No problems noted. Daughter No problems noted. Social History Household Members: Children Housing: House Are you a primary career development counselor to a significant other at home: No Do you presently have visiting nurse or other home services: No Alcohol intake: current Alcohol intake frequency: holidays/special occasions only Alcohol type: wine Patient Tobacco Use Status: Former Tobacco user e-Cigarette/Vaping Use: Never Used Current occupational status: retired Cognitive needs: No Hearing needs: No Vision needs: Yes Review of Systems Const All systems reviewed & are unremarkable except as noted in HPI and below ENT Denies dizziness Card Details: anterior chest wall numbness post sternotomy Denies chest pain, Denies chest pain at rest, Denies chest pain with activity, Denies rapid heart rate, Denies pedal edema, Denies edema, Denies leg edema, Denies lightheadedness, Denies palpitations, Denies dyspnea, Denies dyspnea on exertion and Denies orthopnea Resp Denies cough, Denies dyspnea and Denies dyspnea on exertion GI Denies hematochezia and Denies change in stool character Musc Details: discomfort / numbess right medial aspect of lower leg. Denies abnormal gait, Denies limited range of motion, Denies muscle cramps, Denies muscle weakness, Denies numbness, Denies radiating pain into limb, Denies stiffness and Denies tingling Neuro Denies abnormal gait, Denies dizziness, Denies numbness and Denies tingling Endo Denies palpitations Physical Exam Vital Signs: Last Vital Signs Pulse 78 03/30/24 08:39 BP 134/72 03/30/24 08:39 BMI result Body Mass Index 22.6 Const General: cooperative, healthy appearing, comfortable and no acute distress Orientation/consciousness: patient oriented x3 Neck Neck: Yes normal visual inspection Chest Other: sternal incision well healed Resp Effort & Inspection: normal respiratory effort Auscultation: clear to auscultation bilaterally, no rales, no rhonchi and no wheezes Cardio Jugular venous distension: no JVD Rate: regular rate Rhythm: regular rhythm Heart sounds: S1 normal heart sound present, S2 normal heart sound present, no murmurs and no rubs Neuro General: patient oriented x3 Extrem General: Yes normal to inspection and No no pedal edema Psych Appearance: grossly normal Mental Status: mental status grossly normal Speech and movement: Normal speech and movement present Assessment & Plan Assessment & Plan (1) CAD (coronary artery disease): Code(s): I25.10 - Atherosclerotic heart disease of [place] coronary artery without angina pectoris Category: Medical Plan: History of CAD with abnormal stress test and cardiac catheterization. She underwent a 2 vessel coronary artery bypass grafting on 01/29/2024. She has had no anginal sounding symptoms since that time. She is still recovering and has some mild weakness. She is in cardiac rehab twice weekly which she says she is tolerating well. An echocardiogram was done on 03/10/2024 showing EF 60-65%, grade 2 diastolic dysfunction, [id number] . She did have postoperative atrial fibrillation so she underwent a Holter monitor on 03/10/2024 for 2 days which showed only sinus rhythm, heart rate 64. No evidence of recurrent AFib. Test results reviewed with her. At this time will have her continue cardiac rehab. Continue aggressive risk factor modification. Continue meds without change, including aspirin indefinitely, rosuvastatin, Zetia, metoprolol. She was just ordered to start on Nexletol -she has yet to pick this up from the pharmacy. Signs and symptoms of angina reviewed with her. Cardiology follow-up 3 months, sooner if needed. (2) S/P CABG x 2: Comment: 01/29/2024. Jin to LAD, SVG to OMB, no graft to the RCA as vessel was too diseased. Code(s): Z95.1 - Presence of aortocoronary bypass graft Category: Surgical (3) Hyperlipidemia: Code(s): E78.5 - Hyperlipidemia, unspecified Category: Medical Plan: [place] LDL goal less than 70. Labs done on 03/27/2024 showed LDL 78. She is on rosuvastatin 40 mg daily, Zetia 10 mg daily. Nexletol was added by Dr. Mai. Plan for recheck of her lipids at next visit. (4) Carotid stenosis, bilateral: Code(s): I65.23 - Occlusion and stenosis of bilateral carotid arteries Category: Medical Plan: History of carotid stenosis. Last carotid ultrasound 09/09/2023 showing right ICA 50-79% stenosis, left ICA 0 49% stenosis. She is on aspirin and cholesterol management. She follows with vascular. Plan Time spent on chart review, documentation, interview and assessment Coding Level of Care Code Est Pt Level 4 (90512) Diagnoses CAD (coronary artery disease) I25.10 S/P CABG x 2 Z95.1 Hyperlipidemia E78.5 Carotid stenosis, bilateral I65.23 Time Spent (min) 28
== END 2024-03-30 09:11 | disposition home or self-care (01) ==
PROVIDERS: PCP Internal Medicine; Visit Provider Nurse Practitioner Family
DX: I25.10 Atherosclerotic heart disease of native coronary artery without angina pectoris (principal); Z95.1 Presence of aortocoronary bypass graft; E78.5 Hyperlipidemia, unspecified; I65.23 Occlusion and stenosis of bilateral carotid arteries
CPT/HCPCS: 99214

== ENCOUNTER → 2024-03-30 08:37 | Outpatient (BNVA) | payer MEDICARE, BC, SELFPAY | PROVIDERS: PCP Internal Medicine; Visit Provider Nurse Practitioner Family | DX: I25.10 Atherosclerotic heart disease of native coronary artery without angina pectoris (principal); I65.23 Occlusion and stenosis of bilateral carotid arteries; E78.5 Hyperlipidemia, unspecified; Z95.1 Presence of aortocoronary bypass graft | CPT/HCPCS: 99212 ==

== ENCOUNTER 2024-07-01 11:07 | Outpatient (REF) | payer MEDICARE, BC, SELFPAY ==
--- NOTE | ~2024-07-01 | MM_ITS ---
EXAMINATION: MM SCREENING DIGITAL BREAST TOMOSYNTHESIS, BILATERAL CLINICAL INFORMATION: Screening. Asymptomatic. COMPARISON: Mammography: Comparison is made with available priors TECHNIQUE: Digital breast mammography with tomosynthesis is performed in both the craniocaudal and mediolateral oblique views along with computer-aided detection (CAD). FINDINGS: There are scattered areas of fibroglandular density (ACR BI-RADS breast composition Category b). There are no significant masses, abnormal calcifications, or other abnormalities. MM/MM tomosynthesis screening BI IMPRESSION: No mammographic evidence of malignancy. ASSESSMENT: BI-RADS BI-RADS 1 - Negative RECOMMENDATION: Routine annual mammography screening. 1 year F/U This examination should not preclude the clinical evaluation of a suspicious palpable abnormality. This patient's information was entered into a reminder system with a target due date for their next mammogram. Electronically signed by: Sarah Fulton DO 07/10/2024 09:40 AM BREE
== END 2024-07-01 11:08 | disposition home or self-care (01) ==
LOC: HO.MAMMO 11:07
PROVIDERS: PCP Internal Medicine; Visit Provider Internal Medicine
DX: Z12.31 Encounter for screening mammogram for malignant neoplasm of breast (principal)
CPT/HCPCS: 77063; 77067

== ENCOUNTER → 2024-07-01 12:00 | Outpatient (BNV) | payer MEDICARE, BC, SELFPAY | PROVIDERS: PCP Internal Medicine; Visit Provider Internal Medicine | DX: Z12.31 Encounter for screening mammogram for malignant neoplasm of breast (principal) | CPT/HCPCS: 77063; 77067 ==

== ENCOUNTER 2024-07-06 07:46 | Outpatient (REF) | payer MEDICARE, BC, SELFPAY ==
[2024-07-06 08:56] LABS: Cholesterol 163 mg/dL (<200); HDL Cholesterol 67 mg/dL (>40); LDL Cholesterol Calculated 68 mg/dL (<100); Triglycerides 141 mg/dL (<150)
== END 2024-07-06 07:47 | disposition home or self-care (01) ==
LOC: HO.LAB 07:46
PROVIDERS: PCP Internal Medicine; Visit Provider Internal Medicine Cardiovascular Disease
DX: I25.10 Atherosclerotic heart disease of native coronary artery without angina pectoris (principal); Z95.1 Presence of aortocoronary bypass graft
CPT/HCPCS: 36415; 80061

== ENCOUNTER 2024-07-07 10:32 | Outpatient (AMB) | payer MEDICARE, BC, SELFPAY ==
--- NOTE | 2024-07-07 10:44 | MHC.OFFVIS ---
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 Overall she says she has been doing very well from cardiac perspective. Her shortness of breath is significantly improved. She is participate in phase 2 cardiac rehabilitation. Denies any anginal symptoms. Takes all her medications. Complains of numbness in the left breast. She also overall feels well but is bothered by the right inguinal hernia. Denies any prolonged palpitation, irregular heartbeat. No orthopnea, PND, leg edema. No symptoms of claudication. [facility] Medical History Right inguinal hernia Abdominal mass, right lower quadrant Osteopenia of left femoral neck Recurrent major depression in partial remission H. pylori infection Iron deficiency anemia Hx of carotid stenosis Depression Heartburn Anemia Hyperlipidemia Coronary vasospasm CAD (coronary artery disease) Dyslipidemia Surgical History S/P CABG x 2 Status post aorto-coronary artery bypass graft History of dental surgery Hx of colonoscopy Status post cardiac catheterization Family History Paternal Grandfather Stomach cancer Mother CAD (coronary artery disease) Brother No problems noted. Brother No problems noted. Brother No problems noted. Brother No problems noted. Sister No problems noted. Son No problems noted. Son No problems noted. Daughter No problems noted. Social History Household Members: Children Housing: House Are you a primary day care attendant to a significant other at home: No Do you presently have visiting nurse or other home services: No Alcohol intake: current Alcohol intake frequency: holidays/special occasions only Alcohol type: wine Patient Tobacco Use Status: Former Tobacco user e-Cigarette/Vaping Use: Never Used Current occupational status: retired Cognitive needs: No Hearing needs: No Vision needs: Yes Review of Systems Const Denies chills, Denies fatigue, Denies fever(s), Denies frequent falls, Denies weakness, Denies weight gain and Denies weight loss ENT Denies dizziness Card Denies chest pain, Denies leg edema, Denies lightheadedness, Denies palpitations, Denies dyspnea, Denies dyspnea on exertion, Denies orthopnea and Denies other (loss of consciousness) Resp Denies cough, Denies dyspnea and Denies dyspnea on exertion GI Denies hematochezia and Denies change in stool character Musc Denies abnormal gait, Denies muscle weakness, Denies numbness, Denies radiating pain into limb and Denies tingling Neuro Denies abnormal gait, Denies dizziness, Denies frequent falls, Denies numbness, Denies tingling and Denies weakness Endo Denies fatigue and Denies palpitations Physical Exam Vital Signs: Last Vital Signs Pulse 56 07/07/24 10:47 BP 120/78 07/07/24 10:47 BMI result Body Mass Index 22.7 Const General: cooperative, healthy appearing, comfortable and no acute distress Orientation/consciousness: patient oriented x3 Neck Neck: Yes normal visual inspection Chest Other: sternal incision well healed Resp Effort & Inspection: normal respiratory effort Auscultation: clear to auscultation bilaterally, no rales, no rhonchi and no wheezes Cardio Jugular venous distension: no JVD Rate: regular rate Rhythm: regular rhythm Heart sounds: S1 normal heart sound present, S2 normal heart sound present, Murmur heart sound present systolic mid, decrescendo, crescendo and soft and no rubs Neuro General: patient oriented x3 Extrem General: Yes normal to inspection and No no pedal edema Psych Appearance: grossly normal Mental Status: mental status grossly normal Speech and movement: Normal speech and movement present Assessment & Plan Assessment & Plan (1) CAD (coronary artery disease): Code(s): I25.10 - Atherosclerotic heart disease of [place] coronary artery without angina pectoris Category: Medical Plan: CAD with three-vessel coronary artery disease although RCA was diffusely and severely diseased and could not be bypassed. She had two-vessel coronary artery bypass grafting with much improved symptoms. Continue aggressive vascular risk factor modification. LDL is finally well optimized on triple therapy. Importance of this was discussed. Continue the same. Continue low-dose aspirin therapy. Continue aggressive blood pressure control, currently well optimized. She is encouraged to complete her cardiac rehab session. (2) Aortic stenosis: Code(s): I35.0 - Nonrheumatic aortic (valve) stenosis Category: Medical Plan: Aortic stenosis which is [id number] by last echocardiogram. No interventions required from surgical or interventional perspective. Continue monitor by clinical exam as well echocardiogram on annual basis. Continue aggressive vascular risk factor modifications above. (3) Preoperative cardiovascular examination: Code(s): Z01.810 - Encounter for preprocedural cardiovascular examination Plan: Preoperative cardiovascular risk stratification prior to right inguinal hernia surgery. She is very bothered by this hernia. She had recent surgical revascularization has currently much improved symptoms with no anginal sounding symptoms. She remains at low to intermediate risk for perioperative cardiovascular morbidity mortality in his currently optimized to undergo the surgery with continued current medical therapy including aspirin if possible. Will follow up in the clinic in 6 months time, sooner p.r.n.. Thank you for allowing me to partake in his care Coding Level of Care Code Est Pt Level 4 (02138) Complex EM visit Add On G2211 Diagnoses CAD (coronary artery disease) I25.10 Aortic stenosis I35.0 Preoperative cardiovascular examination Z01.810
[2024-07-07 10:47] VITALS: BP 120/78; PULSE 56; BMI 22.7
== END 2024-07-07 11:11 | disposition home or self-care (01) ==
PROVIDERS: PCP Internal Medicine; Visit Provider Internal Medicine Cardiovascular Disease
DX: I25.10 Atherosclerotic heart disease of native coronary artery without angina pectoris (principal); I35.0 Nonrheumatic aortic (valve) stenosis; Z01.810 Encounter for preprocedural cardiovascular examination
CPT/HCPCS: 99214; G2211

== ENCOUNTER → 2024-07-07 10:32 | Outpatient (BNVA) | payer MEDICARE, BC, SELFPAY | PROVIDERS: PCP Internal Medicine; Visit Provider Internal Medicine Cardiovascular Disease | DX: Z01.810 Encounter for preprocedural cardiovascular examination (principal); I25.10 Atherosclerotic heart disease of native coronary artery without angina pectoris; I35.0 Nonrheumatic aortic (valve) stenosis | CPT/HCPCS: 99212 ==

== ENCOUNTER → 2024-07-21 12:16 | Outpatient (BNV) | payer MEDICARE, BC, SELFPAY | PROVIDERS: PCP Internal Medicine; Visit Provider Internal Medicine | DX: R94.31 Abnormal electrocardiogram [ECG] [EKG] (principal) | CPT/HCPCS: 93010 ==

== ENCOUNTER 2024-07-22 08:30 | Outpatient (RCR) | payer MEDICARE, BC, SELFPAY | END 2024-07-24 06:37 | disposition home or self-care (01) | LOC: HO.CR 08:30 | PROVIDERS: PCP Internal Medicine; Visit Provider Internal Medicine Cardiovascular Disease | DX: Z95.1 Presence of aortocoronary bypass graft (principal) | CPT/HCPCS: 93798 ==

== ENCOUNTER 2024-07-27 05:47 | Day surgery (SDC) | payer MEDICARE, BC, SELFPAY ==
--- NOTE | 2024-07-21 | ECG_ITS ---
Test Reason : preop Blood Pressure : / mmHG Vent. Rate : 065 BPM Atrial Rate : 065 BPM P-R Int : 170 ms QRS Dur : 088 ms QT Int : 440 ms P-R-T Axes : 079 073 -04 degrees QTc Int : 457 ms Normal sinus rhythm Nonspecific ST abnormality Abnormal ECG When compared with ECG of 16-OCT-2021 17:49, Premature ventricular complexes are no longer Present Referred By: Josselyn Campos Electronically Signed By:LIAT POOLE
[2024-07-21 11:41] VITALS: BP 118/56; PULSE 65; RESP 16; O2SAT 97; BMI 23.6
--- NOTE | 2024-07-21 12:04 | P.CONAN_ITS ---
HPI - Anesthesia Eval Consult details Narrative: 74yo F for Right Hernia Inguinal Reducible with mesh, 07/27/2024 Recent mild head cold resolved symptoms, no fevers No CP/SOB at cardiac rehab Cardiac optimized. Follows [facility] cardiology for: CAD s/p CABG x 2 01/2024, Stage 2 cardiac rehab Aortic stenosis (mild-moderate by ECHO) Follows [facility] vascular Carotid Stenosis 50-79% stenosis on Right, 0-49% on Left Yearly surveillence, last visit 09/2023 [facility] Active Problems Active Problems: All Active Problems Aortic stenosis (Acute) Abnormal nuclear stress test (Acute) Atypical angina (Acute) CAD (coronary artery disease) (Acute) Carotid stenosis, bilateral (Acute) Status post aorto-coronary artery bypass graft (Acute) Right inguinal hernia (Acute) Abdominal mass, right lower quadrant (Acute) Osteopenia of left femoral neck (Acute) Recurrent major depression in partial remission (Acute) H. pylori infection (Acute) Iron deficiency anemia (Acute) Heartburn (Acute) Hyperlipidemia (Acute) Coronary vasospasm (Acute) Past Medical History Medical History CVA (cerebral vascular accident) (~2016) Right inguinal hernia Abdominal mass, right lower quadrant Osteopenia of left femoral neck Recurrent major depression in partial remission H. pylori infection Iron deficiency anemia Hx of carotid stenosis Depression Heartburn Anemia Hyperlipidemia Coronary vasospasm CAD (coronary artery disease) Dyslipidemia Family History Family History Paternal Grandfather Stomach cancer Mother CAD (coronary artery disease) Brother No problems noted. Brother No problems noted. Brother No problems noted. Brother No problems noted. Sister No problems noted. Son No problems noted. Son No problems noted. Daughter No problems noted. Family history of problems with anesthesia: No Surgical History Surgical History History of right inguinal hernia repair (07/27/24) Status post aorto-coronary artery bypass graft S/P CABG x 2 History of dental surgery Hx of colonoscopy Status post cardiac catheterization History of Problems with Anesthesia: No Social History Social History Household Members: Family Housing: House Are you a primary customer care associate to a significant other at home: No Do you presently have visiting nurse or other home services: No Alcohol intake: current Alcohol intake frequency: holidays/special occasions only Alcohol type: wine Comment: aware of trip hazard Patient Tobacco Use Status: Former Tobacco user Tobacco use type: Cigarette e-Cigarette/Vaping Use: Never Used Current occupational status: retired Cognitive needs: No Hearing needs: No Vision needs: Yes Meds Allergies Allergy/AdvReac Type Severity Reaction Status Date / Time Penicillins Allergy Intermediate HIVES Verified 08/06/24 10:56 Home Medications ?Medication ?Instructions ?Recorded ?Confirmed ?Last Taken ?Type aspirin 81 mg tablet,delayed 81 mg PO DAILY 09/13/20 07/20/24 10/22/20 08:00 History release (Adult Low Dose Aspirin) rosuvastatin 40 mg tablet 40 mg PO BEDTIME 07/20/24 07/20/24 Unknown History Exam Height,Weight and Vital Signs: Height 5 ft 4 in Weight 62.3 kg Last Vital Signs Pulse 65 07/21/24 11:41 Resp 16 07/21/24 11:41 BP 118/56 L 07/21/24 11:41 Pulse Ox 97 07/21/24 11:41 O2 Del Method Room Air 07/21/24 11:41 Pertinent Lab Results Pertinent Lab Results: Laboratory Tests 01/02/24 10:16 WBC 8.3 Hgb 13.6 Hct 41.4 Plt Count 230 Sodium 140 Potassium 3.9 Chloride 108 Carbon Dioxide 23 BUN 12 Creatinine 0.85 Narrative Narrative: EKG 07/2024 Vent. Rate : 065 BPM Atrial Rate : 065 BPM P-R Int : 170 ms QRS Dur : 088 ms QT Int : 440 ms P-R-T Axes : 079 073 -04 degrees QTc Int : 457 ms Normal sinus rhythm Nonspecific ST abnormality Abnormal ECG When compared with ECG of 16-OCT-2021 17:49, Premature ventricular complexes are no longer Present ECHO 03/2024 Conclusions: - 1. Normal LV ejection fraction of 60 65% with grade 2 diastolic dysfunction 2. [id number] aortic stenosis 3. No gross pericardial effusion Airway Mallampati Class: II TM Dist: >3cm Neck ROM: Full Denture: Upper Partial: Lower Heart: RRR Lungs: CTAB Assessment and Plan Assessment Anesthesia Assessment: Anesthesia Plan Discussed and PAT Visit Final Anesthetic Review Family History of Problems with Anesthesia: No History of Problems with Anesthesia: No
[2024-07-27 06:13] VITALS: BMI 23.6
[2024-07-27 06:23] VITALS: BP 113/42; PULSE 62; RESP 16; TEMP 36.6; O2SAT 98
[2024-07-27] MEDS: Lactated Ringers 1,000 ML 100 ML IVCONT (06:31)
[2024-07-27] MEDS: vancomycin HCL 1,000 MG in 0.9 % Sodium Chloride 250 ML 270 MG IV (06:38)
--- NOTE | 2024-07-27 07:27 | P.CONAN_ITS ---
[facility] Active Problems Active Problems: All Active Problems Aortic stenosis (Acute) Abnormal nuclear stress test (Acute) Atypical angina (Acute) CAD (coronary artery disease) (Acute) Carotid stenosis, bilateral (Acute) Status post aorto-coronary artery bypass graft (Acute) Right inguinal hernia (Acute) Abdominal mass, right lower quadrant (Acute) Osteopenia of left femoral neck (Acute) Recurrent major depression in partial remission (Acute) H. pylori infection (Acute) Iron deficiency anemia (Acute) Heartburn (Acute) Hyperlipidemia (Acute) Coronary vasospasm (Acute) Past Medical History Medical History CVA (cerebral vascular accident) (~2016) Right inguinal hernia Abdominal mass, right lower quadrant Osteopenia of left femoral neck Recurrent major depression in partial remission H. pylori infection Iron deficiency anemia Hx of carotid stenosis Depression Heartburn Anemia Hyperlipidemia Coronary vasospasm CAD (coronary artery disease) Dyslipidemia Functional capacity: independent ambulation Patient : No Family History Family History Paternal Grandfather Stomach cancer Mother CAD (coronary artery disease) Brother No problems noted. Brother No problems noted. Brother No problems noted. Brother No problems noted. Sister No problems noted. Son No problems noted. Son No problems noted. Daughter No problems noted. Family history of problems with anesthesia: No Surgical History Surgical History Status post aorto-coronary artery bypass graft S/P CABG x 2 History of dental surgery Hx of colonoscopy Status post cardiac catheterization History of Problems with Anesthesia: No Social History Social History Household Members: Family Housing: House Are you a primary critical care specialist to a significant other at home: No Do you presently have visiting nurse or other home services: No Alcohol intake: current Alcohol intake frequency: holidays/special occasions only Alcohol type: wine Comment: aware of trip hazard Patient Tobacco Use Status: Former Tobacco user Tobacco use type: Cigarette e-Cigarette/Vaping Use: Never Used Current occupational status: retired Cognitive needs: No Hearing needs: No Vision needs: Yes Meds Allergies Allergy/AdvReac Type Severity Reaction Status Date / Time Penicillins Allergy Intermediate HIVES Verified 07/20/24 11:26 Active Medications: Current Medications Lactated Ringer's (Lr) 1,000 mls @ 100 mls/hr IVCONT .Q10H ADAM Last Admin: 07/27/24 06:31 Dose: 100 mls/hr Pharmacy Consult (Consult Rx Vancomycin Dosing) 1 each MISCELLANE DAILY PRN PRN Reason: Consult order Home Medications ?Medication ?Instructions ?Recorded ?Confirmed ?Last Taken ?Type aspirin 81 mg tablet,delayed 81 mg PO DAILY 09/13/20 07/20/24 10/22/20 08:00 History release (Adult Low Dose Aspirin) rosuvastatin 40 mg tablet 40 mg PO BEDTIME 07/20/24 07/20/24 Unknown History Exam Height,Weight and Vital Signs: Height 5 ft 4 in Weight 62.369 kg Last Vital Signs Temp 97.9 F 07/27/24 06:23 Pulse 62 07/27/24 06:23 Resp 16 07/27/24 06:23 BP 113/42 L 07/27/24 06:23 Pulse Ox 98 07/27/24 06:23 O2 Del Method Room Air 07/27/24 06:23 Airway Mallampati Class: III TM Dist: >3cm Neck ROM: Full Denture: Upper Partial: Lower Heart: RRR Lungs: CTA Assessment and Plan Assessment Anesthesia Assessment: Anesthesia Plan Discussed and Chart Reviewed Final Anesthetic Review Family History of Problems with Anesthesia: No History of Problems with Anesthesia: No ASA Class: III Final Preanesthetic Review: Meds/Allgs Chart Reviewed, Consent Obtained/Reviewed and Anes Risks/Benef Reviewed Patient Risk: Intermediate Procedure Risk: Intermediate Anesthetic Plan Anesthetic Plan: GA Disposition: Standard PACU
--- NOTE | 2024-07-27 07:29 | MHC.SHP ---
Pre-Procedural Eval Section A - 24 Hr Update-Section A only Date of Service: 07/27/24 The patient is an INPATIENT: No Changes since office visit: Yes Patient answered all questions; No Cold of Flu in the past 2 weeks, No New Medical Problems and No Changes in Medication The patient has been examined within 24 hours of the surgical procedure. The History & Physical has been completed within 30 days and I have reviewed it.: No Section B - Complete if H&P > 30 days Chief Complaint: Unilateral inguinal hernia, without obstruction or Details of Present Illness: No change in symptoms since previous office visit Relevant Family History (Specify if Yes): No Relevant Social History: None Present Medications: see Short Stay Collaborative assessment Medical History: Significant History History of Previous Operations: No relevant previous surgery Allergies: Allergies Allergy/AdvReac Type Severity Reaction Status Date / Time Penicillins Allergy Intermediate HIVES Verified 07/20/24 11:26 Review of Systems Sugical H&P ROS: Negative: Constitution, Cardiovascular, Respiratory, Gastrointestinal, Genitourinary and Musculoskeletal Exam Surgical H&P Exam: Normal: Heart, Normal: Lungs, Normal: Extremities, Normal: Abdomen and Normal: Skin Plan Diagnosis/Plan: Unchanged I have reviewed the history and physical and performed a pertinent physical examination on my patient. No changes have occurred unless specified. I reviewed the procedure, alternatives and risks of the repair of right inguinal hernia with mesh and she consents to the surgery. Time Spent With Patient Time: Total time managing care of this patient today ____ minutes.
--- NOTE | 2024-07-27 08:21 | P.OP_ITS ---
Operative Note Operative Note Date of Service: 07/27/24 Narrative: Preoperative diagnosis: Right inguinal hernia, reducible Postoperative diagnosis: Same Procedure: Repair of right inguinal hernia with mesh Surgeon: Marcos Dennis MD Park Landscape Architect: Marbella Maxwell PA-C Anesthesia: General LMA Indications for procedure: 74-year-old female patient presenting with a painful right inguinal hernia, reducible on examination. Operative findings: Indirect right inguinal hernia repaired with a medium PHS mesh Specimen: None Estimated blood loss: Less than 2 mL Complications: None Procedure details: Patient was brought to the OR and placed in a supine position. After administering general anesthesia, the patient's abdomen was prepped with ChloraPrep and draped in a sterile fashion. A surgical time-out was called the consent confirmed. Patient received preoperative antibiotics and Venodyne boots were in place. Local anesthesia consisting of 0.5% Sensorcaine was infiltrated over the right inguinal ligament. Incision was then made with a scalpel and carried out through subcutaneous tissue, through Ad's fascia up to the external oblique aponeurosis. Additional local was infiltrated below the external oblique aponeurosis. An incision was made with a scalpel widened with the Metzenbaum scissors. The round ligament was identified and divided. A indirect hernia was identified coming through the internal ring. This was dissected and reduced into the abdominal cavity. A preperitoneal space was then directed using an open Ray-Adal sponge. A medium PHS mesh was obtained and the circular underlay deployed within the preperitoneal space. The overlay was then secured to the pubic tubercle, conjoined tendon, and shelving edge of the inguinal ligament using a 0 Polysorb suture. Wounds were then irrigated with saline solution and suctioned dry. Wounds were again checked for hemostasis. External oblique aponeurosis was then closed using a running 2-0 Polysorb suture. 8 mL of Zenrelef was then instilled below the external oblique aponeu rosis for postoperative pain relief. Ad's fascia and dermis were then reapproximated using interrupted 3-0 Polysorb sutures. Skin was closed using a running subcuticular 4-0 Polysorb suture. Sterile dressings consisting of Steri-Strips, 4 x 4 gauze and Tegaderm were then applied. The patient tolerated the procedure well. Sponge, instrument, and needle counts reported as correct. The patient was transferred to PACU in stable condition.
[2024-07-27 08:31] VITALS: BP 120/81; PULSE 83; RESP 16; TEMP 36.7; O2SAT 99
[2024-07-27 08:36] VITALS: BP 111/42; PULSE 81; RESP 17; O2SAT 97
[2024-07-27 08:41] VITALS: BP 125/41; PULSE 77; RESP 17; O2SAT 94
[2024-07-27 08:46] VITALS: BP 119/45; PULSE 73; RESP 16; O2SAT 98
[2024-07-27 09:01] VITALS: BP 112/49; PULSE 76; RESP 17; TEMP 36.7; O2SAT 95
--- NOTE | 2024-07-27 14:00 | HO.POSTANES ---
Post Anesthesia Evaluation Post Anesthesia Evaluation Date of Service: 07/27/24 Vital Signs: Vital Signs Temp Pulse Resp BP Pulse Ox O2 Del Method O2 Flow Rate 07/27/24 09:01 98.0 F 76 17 112/49 L 95 Room Air 07/27/24 08:46 73 16 119/45 L 98 Room Air 07/27/24 08:41 77 17 125/41 L 94 Room Air 07/27/24 08:36 81 17 111/42 L 97 Room Air 07/27/24 08:31 98.1 F 83 16 120/81 99 Simple Mask 6 07/27/24 06:23 97.9 F 62 16 113/42 L 98 Room Air Anesthesia: General LMA Mental Status: Awake Pain Control: Satisfactory Nausea/Vomiting: None Hydration: Adequate Anesthesia-Related Issues: No Anes. Related Issues
== END 2024-07-27 09:06 | disposition home or self-care (01) ==
PROVIDERS: PCP Internal Medicine; Visit Provider Surgery
PROC: (CPT 49505; principal; 2024-07-27 07:30)
DX: K40.90 Unilateral inguinal hernia, without obstruction or gangrene, not specified as recurrent (principal); I25.701 Atherosclerosis of coronary artery bypass graft(s), unspecified, with angina pectoris with documented spasm; Z95.1 Presence of aortocoronary bypass graft; E78.5 Hyperlipidemia, unspecified; D50.9 Iron deficiency anemia, unspecified; F33.41 Major depressive disorder, recurrent, in partial remission; M85.88 Other specified disorders of bone density and structure, other site; Z79.82 Long term (current) use of aspirin; Z79.899 Other long term (current) drug therapy; Z88.0 Allergy status to penicillin; Z87.891 Personal history of nicotine dependence
CPT/HCPCS: 49505; 93005; C1781; C9088; J3370

== ENCOUNTER → 2024-07-27 05:47 | Outpatient (BNV) | payer MEDICARE, BC, SELFPAY | PROVIDERS: PCP Internal Medicine; Visit Provider Surgery | DX: K40.90 Unilateral inguinal hernia, without obstruction or gangrene, not specified as recurrent (principal) | CPT/HCPCS: 49505 ==

== ENCOUNTER 2024-08-06 10:29 | Outpatient (AMB) | payer MEDICARE, BC, SELFPAY ==
[2024-08-06 10:54] VITALS: BP 110/59; PULSE 74
--- NOTE | 2024-08-06 10:54 | MHC.OFFVIS ---
Vital Signs 08/06/24 10:54 Weight 136 lb BP 110/59 L Blood Pressure Location Rt brachial Position Sitting Pulse 74 Intake Visit Reasons: S/P RIH w/mesh Intake Note: Patient is seen in office for post op assessment post Repair of right inguinal hernia with mesh. Pt c/o: reports incision healing well. Steri strips still in place. 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 She tolerated the procedure well but does have some soreness and swelling at the site of the incision. She is eating well and denies any difficulty with the bowels. She was anxious to get back to cardiac rehab but understands she needs to avoid lifting greater than 10 lb for 1 month. [facility] Medical History CVA (cerebral vascular accident) (~2016) Right inguinal hernia Abdominal mass, right lower quadrant Osteopenia of left femoral neck Recurrent major depression in partial remission H. pylori infection Iron deficiency anemia Hx of carotid stenosis Depression Heartburn Anemia Hyperlipidemia Coronary vasospasm CAD (coronary artery disease) Dyslipidemia Surgical History History of right inguinal hernia repair (07/27/24) Status post aorto-coronary artery bypass graft S/P CABG x 2 History of dental surgery Hx of colonoscopy Status post cardiac catheterization Family History Paternal Grandfather Stomach cancer Mother CAD (coronary artery disease) Brother No problems noted. Brother No problems noted. Brother No problems noted. Brother No problems noted. Sister No problems noted. Son No problems noted. Son No problems noted. Daughter No problems noted. Social History Household Members: Family Housing: House Are you a primary long term acute care registered nurse to a significant other at home: No Do you presently have visiting nurse or other home services: No Alcohol intake: current Alcohol intake frequency: holidays/special occasions only Alcohol type: wine Comment: aware of trip hazard Patient Tobacco Use Status: Former Tobacco user Tobacco use type: Cigarette e-Cigarette/Vaping Use: Never Used Current occupational status: retired Cognitive needs: No Hearing needs: No Vision needs: Yes Physical Exam Vital Signs: Last Vital Signs Pulse 74 08/06/24 10:54 BP 110/59 L 08/06/24 10:54 Const General: no acute distress Nutritional Appearance: well nourished Orientation/consciousness: patient oriented x3 Resp Effort & Inspection: normal respiratory effort, no audible wheezes, no cough and no respiratory distress GI Other: Soft and nondistended, nontender. Incision in the right groin is clean, dry, and intact without redness or discharge. No hernia noted with Valsalva maneuvers. Skin Other: Warm, dry, no rash Neuro General: patient oriented x3 Assessment & Plan Assessment & Plan (1) CAD (coronary artery disease): Code(s): I25.10 - Atherosclerotic heart disease of [place] coronary artery without angina pectoris Category: Medical (2) Right inguinal hernia: Code(s): K40.90 - Unilateral inguinal hernia, without obstruction or gangrene, not specified as recurrent Category: Medical (3) Aortic stenosis: Code(s): I35.0 - Nonrheumatic aortic (valve) stenosis Category: Medical Plan Patient returns 1 week following repair of a right inguinal hernia with mesh. She tolerated the procedure well the wounds are healing nicely. She should continue to avoid lifting greater than 10 lb but may resume light activity now. She should follow up in 1 month for a final wound check. Orders: Orders PT Evaluation and Treatment Today I25.10 - Atherosclerotic heart disease of [place] coronary artery without angina pectoris, I35.0 - Nonrheumatic aortic (valve) stenosis, K40.90 - Unilateral inguinal hernia, without obstruction or gangrene, not specified as recurrent Coding Level of Care Code Global (84974) Diagnoses CAD (coronary artery disease) I25.10 Right inguinal hernia K40.90 Aortic stenosis I35.0
== END 2024-08-06 11:11 | disposition home or self-care (01) ==
PROVIDERS: PCP Internal Medicine; Visit Provider Surgery
DX: I25.10 Atherosclerotic heart disease of native coronary artery without angina pectoris (principal); K40.90 Unilateral inguinal hernia, without obstruction or gangrene, not specified as recurrent; I35.0 Nonrheumatic aortic (valve) stenosis
CPT/HCPCS: 99024

== ENCOUNTER → 2024-08-06 10:29 | Outpatient (BNVA) | payer MEDICARE, BC, SELFPAY | PROVIDERS: PCP Internal Medicine; Visit Provider Surgery | DX: Z48.815 Encounter for surgical aftercare following surgery on the digestive system (principal); I25.10 Atherosclerotic heart disease of native coronary artery without angina pectoris; I35.0 Nonrheumatic aortic (valve) stenosis; Z98.890 Other specified postprocedural states | CPT/HCPCS: 99212 ==

== ENCOUNTER 2024-09-03 11:00 | Outpatient (AMB) | payer MEDICARE, BC, SELFPAY ==
--- NOTE | 2024-09-03 11:01 | MHC.OFFVIS ---
Vital Signs 09/03/24 11:10 Height 5 ft 4 in Weight 137 lb 8 oz BMI 23.6 BP 165/79 H Blood Pressure Location Rt brachial Position Sitting Pulse 76 Intake Visit Reasons: S/P 4wk RIH w/mesh Intake Note: Patient is seen in office for one month follow up visit, post right inguinal hernia repair. 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 She reports having the flu 2 weeks ago with a resulting coughing which put a strain on both her chest surgery and her right inguinal hernia surgery. She feels improved today but still has a lingering cough. She denies any pain in the right groin. She is eating well and reports normal bowel habits. [facility] Medical History CVA (cerebral vascular accident) (~2016) Right inguinal hernia Abdominal mass, right lower quadrant Osteopenia of left femoral neck Recurrent major depression in partial remission H. pylori infection Iron deficiency anemia Hx of carotid stenosis Depression Heartburn Anemia Hyperlipidemia Coronary vasospasm CAD (coronary artery disease) Dyslipidemia Surgical History History of right inguinal hernia repair (07/27/24) Status post aorto-coronary artery bypass graft S/P CABG x 2 History of dental surgery Hx of colonoscopy Status post cardiac catheterization Family History Paternal Grandfather Stomach cancer Mother CAD (coronary artery disease) Brother No problems noted. Brother No problems noted. Brother No problems noted. Brother No problems noted. Sister No problems noted. Son No problems noted. Son No problems noted. Daughter No problems noted. Social History Household Members: Family Housing: House Are you a primary respiratory care specialist to a significant other at home: No Do you presently have visiting nurse or other home services: No Alcohol intake: current Alcohol intake frequency: holidays/special occasions only Alcohol type: wine Comment: aware of trip hazard Patient Tobacco Use Status: Former Tobacco user Tobacco use type: Cigarette e-Cigarette/Vaping Use: Never Used Current occupational status: retired Cognitive needs: No Hearing needs: No Vision needs: Yes Physical Exam Const General: no acute distress Nutritional Appearance: well nourished Orientation/consciousness: patient oriented x3 Resp Effort & Inspection: normal respiratory effort, no audible wheezes, no cough and no respiratory distress GI Other: Soft and nondistended, nontender. Incision in the right groin is clean, dry, and intact without redness or discharge. No hernia noted with Valsalva maneuvers. Skin Other: Warm, dry, no rash Neuro General: patient oriented x3 Assessment & Plan Assessment & Plan (1) CAD (coronary artery disease): Code(s): I25.10 - Atherosclerotic heart disease of [place] coronary artery without angina pectoris Category: Medical (2) Right inguinal hernia: Code(s): K40.90 - Unilateral inguinal hernia, without obstruction or gangrene, not specified as recurrent Category: Medical (3) Aortic stenosis: Code(s): I35.0 - Nonrheumatic aortic (valve) stenosis Category: Medical Plan Patient returns 1 month following repair of a right inguinal hernia with mesh. She tolerated the procedure well the wounds are healing nicely. Examination today reveals no evidence of recurrent hernia with a well-healed incision in the right groin. She may resume normal activity without restriction and may resume cardiac rehab from my standpoint. She should follow up as needed. Coding Level of Care Code Global (00895) Diagnoses CAD (coronary artery disease) I25.10 Right inguinal hernia K40.90 Aortic stenosis I35.0
[2024-09-03 11:10] VITALS: BP 165/79; PULSE 76; BMI 23.6
== END 2024-09-03 11:20 | disposition home or self-care (01) ==
PROVIDERS: PCP Internal Medicine; Visit Provider Surgery
DX: I25.10 Atherosclerotic heart disease of native coronary artery without angina pectoris (principal); K40.90 Unilateral inguinal hernia, without obstruction or gangrene, not specified as recurrent; I35.0 Nonrheumatic aortic (valve) stenosis
CPT/HCPCS: 99024

== ENCOUNTER → 2024-09-03 11:00 | Outpatient (BNVA) | payer MEDICARE, BC, SELFPAY | PROVIDERS: PCP Internal Medicine; Visit Provider Surgery | DX: Z48.815 Encounter for surgical aftercare following surgery on the digestive system (principal); I25.10 Atherosclerotic heart disease of native coronary artery without angina pectoris; I35.0 Nonrheumatic aortic (valve) stenosis | CPT/HCPCS: 99212 ==

== ENCOUNTER 2024-09-29 09:40 | Outpatient (REF) | payer MEDICARE, BC, SELFPAY ==
--- NOTE | ~2024-09-29 | US_ITS ---
EXAMINATION: BILATERAL CAROTID ULTRASOUND WITH DOPPLER HISTORY: I65.23 - Occlusion and stenosis of bilateral carotid arteries COMPARISON: Comparison is made with the prior examination dated 09/09/2023. TECHNIQUE: Real time and Color and Spectral doppler ultrasonography of the carotid and vertebral arteries was performed in multiple planes. FINDINGS: There is a moderate amount of calcified plaque at the right carotid bifurcation and a small amount of calcified plaque at the left carotid bifurcation. VERTEBRAL FLOW DIRECTION: Antegrade bilaterally. PEAK SYSTOLIC VELOCITIES (in cm/sec): RIGHT: CCA: Prox: 95 Dist: 90 ICA: Prox: 147 Mid: 91 Dist: 122 ICA/CCA Ratio: 1.55 ECA: 195 Peak ICA EDV: 47 LEFT: CCA: Prox: 76 Dist: 67 ICA: Prox: 85 Mid: 93 Dist: 111 ICA/CCA Ratio: 1.46 ECA: 395 Peak ICA EDV: 34 US/US carotid duplex BI IMPRESSION: Again seen are findings consistent with 50-79% stenosis of the right internal carotid artery and 0-49% stenosis of the left internal carotid artery. Electronically signed by: Hardik Ledesma MD 09/29/2024 12:15 PM [facility] [place]
== END 2024-09-29 09:41 | disposition home or self-care (01) ==
LOC: HO.US 09:40
PROVIDERS: Visit Provider Surgery Vascular Surgery
DX: I65.23 Occlusion and stenosis of bilateral carotid arteries (principal)
CPT/HCPCS: 93880

== ENCOUNTER → 2024-09-29 09:41 | Outpatient (BNV) | payer MEDICARE, BC, SELFPAY | PROVIDERS: Visit Provider Radiology Diagnostic Radiology | DX: I65.23 Occlusion and stenosis of bilateral carotid arteries (principal) | CPT/HCPCS: 93880 ==

== ENCOUNTER 2024-10-06 09:48 | Outpatient (AMB) | payer MEDICARE, BC, SELFPAY ==
--- NOTE | 2024-10-06 10:05 | MHC.OFFVIS ---
Vital Signs 10/06/24 10:06 Height 5 ft 4 in Weight 134 lb BMI 23.0 BP 112/66 Blood Pressure Location Lt brachial Position Sitting Intake Visit Reasons: 1y follow up s/p Carotid US 09/29/24 Intake Note: 1 yr follow up carotid US 09/29/24. Pt states she had open heart surgery @ [facility] in January and hernia surgery 07/27/24. Those are the only updates per pt. 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 She has a significant cardiac history including coronary artery disease necessitating a double coronary artery bypass graft on January 25, after an unsuccessful attempt at angioplasty due to extensive blockage. Post-surgery complications i were noted. In addition she has undergone femoral hernia repair on 07/27/2024.. Subsequent cardiac rehabilitation has been completed, but she experiences lingering post-operative symptoms involving sternum-related chest numbness and pain. From a carotid standpoint she remains asymptomatic. She now presents for carotid surveillance follow-up. [facility] Medical History (Updated 10/07/24 @ 10:50 by Traci Gunn MD) History of CVA (cerebrovascular accident) History of iron deficiency anemia History of adenomatous polyp of colon History of right inguinal hernia Abdominal mass, right lower quadrant Osteopenia of left femoral neck Recurrent major depression in partial remission H. pylori infection Hx of carotid stenosis Hyperlipidemia CAD (coronary artery disease) Dyslipidemia Surgical History (Updated 10/07/24 @ 10:48 by Traci Gunn MD) History of right inguinal hernia repair (07/27/24) Status post aorto-coronary artery bypass graft S/P CABG x 2 History of dental surgery Hx of colonoscopy Status post cardiac catheterization Family History Paternal Grandfather Stomach cancer Mother CAD (coronary artery disease) Brother No problems noted. Brother No problems noted. Brother No problems noted. Brother No problems noted. Sister No problems noted. Son No problems noted. Son No problems noted. Daughter No problems noted. Social History Household Members: Family Housing: House Are you a primary healthcare consulting manager to a significant other at home: No Do you presently have visiting nurse or other home services: No Alcohol intake: current Alcohol intake frequency: holidays/special occasions only Alcohol type: wine Comment: aware of trip hazard Patient Tobacco Use Status: Former Tobacco user Tobacco use type: Cigarette e-Cigarette/Vaping Use: Never Used Current occupational status: retired Cognitive needs: No Hearing needs: No Vision needs: Yes Review of Systems Const All systems reviewed & are unremarkable except as noted in HPI and below Reports no additional complaints ENT Reports Normal hearing present Card Denies chest pain, Denies chest pain at rest, Denies chest pain with activity and Denies pedal edema Resp Denies cough GI Denies abdominal pain Musc Denies abnormal gait, Denies muscle cramps and Denies radiating pain into limb Skin/Breast Denies skin ulcer and Denies wounds Neuro Reports Normal hearing present and Denies abnormal gait Psych Reports no additional complaints Physical Exam Vital Signs: Last Vital Signs BP 112/66 10/06/24 10:06 BMI result Body Mass Index 23.0 Const General: cooperative, healthy appearing and comfortable Orientation/consciousness: oriented to person, oriented to place and oriented to time HEENT Head: Yes normal to inspection Neck Neck: Yes normal visual inspection Carotids: no bruits Chest Chest palpation & inspection: normal inspection of the chest Resp Effort & Inspection: normal respiratory effort and able to speak in complete sentences Auscultation: clear to auscultation bilaterally, no crackles, no rales, no rhonchi and no wheezes Cardio Rate: regular rate Rhythm: regular rhythm Heart sounds: S1 normal heart sound present and S2 normal heart sound present Bruits: no carotid bruits Peripheral pulses: Peripheral pulses 2+ throughout GI Inspection: Yes normal to inspection Skin Wounds: no wounds Hair: normal Neuro General: oriented to person, oriented to place and oriented to time Cranial nerves: Yes CN's II-XII intact bilaterally and Yes Normal hearing present Cognition (Neuro): normal cognition Motor exam (neuro): 5/5 motor strength present throughout Extrem Other: venous exam: No significant superficial varicosities or spider telangiectasias, minimal edema General: No clubbing, No cyanosis and No edema Psych Appearance: grossly normal Mental Status: mental status grossly normal Speech and movement: Normal speech and movement present Results Reviewed Results Reviewed: Carotid ultrasound dated 09/29/2024 demonstrates right side 50-79% stenosis with a peak systolic of 147 in the left side of 0-49% stenosis. Written report and images were reviewed. Assessment & Plan Assessment & Plan (1) Carotid stenosis, bilateral: Code(s): I65.23 - Occlusion and stenosis of bilateral carotid arteries Category: Medical Plan: In short patient has asymptomatic carotid disease. We have reviewed signs and symptoms of a stroke. We also discussed risk factor modification inclusive a healthy diet low in cholesterol. The patient will follow up with us with surveillance ultrasound of the carotids 1 year. Should there be any changes or signs or symptoms of a stroke we will be happy to see them back sooner. Thank you for allowing us to participate in this patient's care. If there are any questions or concerns please do not hesitate to contact us. Plan Patient was informed and verbally consented to the use of an ambient scribe for clinic note documentation during this visit. Orders: Orders US carotid duplex BI 1 Year I65.23 - Occlusion and stenosis of bilateral carotid arteries Patient Instructions: - Continue taking aspirin and statin as prescribed - Engage regularly and actively in prescribed physical therapy focusing on upper body strength - Monitor symptoms and report any worsening of chest pain or leg numbness - Return for her scheduled follow-up appointment for carotid surveillance - Contact primary care provider or me if experiencing new or concerning symptoms Coding Level of Care Code Est Pt Level 4 (73787) Diagnoses Carotid stenosis, bilateral I65.23
[2024-10-06 10:06] VITALS: BP 112/66; BMI 23.0
== END 2024-10-06 10:43 | disposition home or self-care (01) ==
PROVIDERS: PCP Internal Medicine; Visit Provider Surgery Vascular Surgery
DX: I65.23 Occlusion and stenosis of bilateral carotid arteries (principal)
CPT/HCPCS: 99214

== ENCOUNTER → 2024-10-06 09:48 | Outpatient (BNVA) | payer MEDICARE, BC, SELFPAY | PROVIDERS: PCP Internal Medicine; Visit Provider Surgery Vascular Surgery | DX: I65.23 Occlusion and stenosis of bilateral carotid arteries (principal) | CPT/HCPCS: 99212 ==

== ENCOUNTER 2024-10-07 09:45 | Outpatient (AMB) | payer MEDICARE, BC, SELFPAY ==
[2024-10-07 10:08] VITALS: BP 120/64; PULSE 91; RESP 17; TEMP 36.7; O2SAT 98; BMI 24.0
--- NOTE | 2024-10-07 10:08 | A.OFFPC_ITS ---
Vital Signs 10/07/24 10:08 Height 5 ft 4 in Weight 140 lb BMI 24.0 BP 120/64 Blood Pressure Location Rt brachial Position Sitting Respiration 17 Pulse 91 Pulse Source Pulse Oximeter Temp 98.1 F Temp Source Oral Pulse Oximetry (%) 98 Oxygen Delivery Method Room Air Intake Visit Reasons: Annual, PE/secondary covers PE Intake Note: Pt is here today for her PE: Last mammogram 07/01/24, bone density scan 09/18/22, colonoscopy 10/19/19 Allergies Penicillins Allergy (Intermediate, Verified 10/07/24 10:15) HIVES Medication List - Last Reconciled 10/07/24 by Traci Gunn MD aspirin (Adult Low Dose Aspirin) 81 mg PO DAILY bempedoic acid (Nexletol) 180 mg PO DAILY ezetimibe 10 mg PO DAILY metoprolol tartrate 50 mg PO BID rosuvastatin 40 mg PO BEDTIME Tobacco use date assessed: 10/07/24 Fall risk assessment: No Falls in past year Last assessed Fall Risk: 10/07/24 Dental Screening Dental Screen Date: 10/07/24 HPI Annual, PE/secondary covers PE HPI Details 74-year-old female past medical history of hyperlipidemia, carotid stenosis, CAD, coronary artery bypass grafting two-vessel 01/29/2024, postop AFib presents for a physical exam. She also had a recent surgery for repair of a right inguinal hernia with mesh on 07/27/2024, currently feels well with no complaints of any pain, discomfort over surgical site She is up-to-date with her screening mammogram, last done 07/01/24, and bone density scan was done 09/18/22 showing osteopenia left femoral neck, normal in lumbar spine and left femur, already has an appointment for a repeat bone density scan scheduled later this year. Her last colonoscopy was done 10/26, by Dr. Adames with tubular adenoma removed, repeat due again next year [facility] Medical History (Updated 10/07/24 @ 10:50 by Traci Gunn MD) History of CVA (cerebrovascular accident) History of iron deficiency anemia History of adenomatous polyp of colon History of right inguinal hernia Abdominal mass, right lower quadrant Osteopenia of left femoral neck Recurrent major depression in partial remission H. pylori infection Hx of carotid stenosis Hyperlipidemia CAD (coronary artery disease) Dyslipidemia Surgical History (Updated 10/11/24 @ 11:31 by Traci Gunn MD) History of right inguinal hernia repair (07/27/24) Status post aorto-coronary artery bypass graft S/P CABG x 2 History of dental surgery Hx of colonoscopy Status post cardiac catheterization Family History Paternal Grandfather Stomach cancer Mother CAD (coronary artery disease) Brother No problems noted. Brother No problems noted. Brother No problems noted. Brother No problems noted. Sister No problems noted. Son No problems noted. Son No problems noted. Daughter No problems noted. Social History Household Members: Family Housing: House Are you a primary child care education coordinator to a significant other at home: No Do you presently have visiting nurse or other home services: No Alcohol intake: current Alcohol intake frequency: holidays/special occasions only Alcohol type: wine Comment: aware of trip hazard Patient Tobacco Use Status: Former Tobacco user Tobacco use type: Cigarette e-Cigarette/Vaping Use: Never Used Current occupational status: retired Cognitive needs: No Hearing needs: No Vision needs: Yes Questionnaire PHQ-9 Over the last 2 weeks, how often have you been bothered by any of the following problems? 1. Little interest or pleasure in doing things: not at all 2. Feeling down, depressed, or hopeless: not at all 3. Trouble falling or staying asleep, or sleeping too much: several days 4. Feeling tired or having little energy: several days 5. Poor appetite or overeating: not at all 6. Feeling bad about yourself - or that you are a failure or have let yourself or your family down: not at all 7. Trouble concentrating on things, such as reading the newspaper or watching television: not at all 8. Moving or speaking so slowly that other people could have noticed. Or the opposite - being so fidgety or restless that you have been moving around a lot more than usual: several days 9. Thoughts that you would be better off or of hurting yourself in some wa y: not at all Total score: 3 Depression Screening Interpretation: Negative Depression Screening Done: Yes 04445 - PHQ-9 Billing: Yes Source: Developed by Drs. Hardik Yi, Valdo Patel and colleagues, with an educational héctor from [employer]. Thrive Questionnaire Date Thrive assessed: 09/03/24 I am a: Patient What is your living situation today?: I have a steady place to live Within the past 12 months, did the food you bought not last and you didn't have the money to get more?: Never true Within the past 12 months, did you worry whether your food would run out before you got money to buy more?: Never true Do you have trouble paying for medicines?: No Do you have trouble paying your heating and electricity bill?: No Do you have trouble taking care of your child, family member or friend?: No Do you have trouble with day-to-day activities such as bathing, preparing meals, shopping, managing finances, etc.?: No Are you currently unemployed and looking for a job?: No Are you interested in more education?: No Please select the resources that you would like help with: None Currently or been in a relationship where the following occur: No concerns reported THRIVE Score: 0 AUDIT C Alcohol Use Questionnaire (AUDIT-C) 1. How often do you have a drink containing alcohol?: Monthly or less 2. How many drinks containing alcohol do you have on a typical day when you are drinking?: 1 or 2 3. How often do you have six or more drinks on one occasion?: Never Total Score: 1 JEROMY-7 AMB Questionnaire JEROMY-7 Date JEROMY - 7 assessed: 03/03/24 Feeling nervous, anxious, or on edge: 0 = Not at all Not being able to stop or control worryin = Not at all Worrying too much about different things: 0 = Not at all Trouble relaxin = Not at all Being so restless that it is hard to sit still: 0 = Not at all Becoming easily annoyed or irritable: 0 = Not at all Feeling afraid as if something awful might happen: 0 = Not at all Total JEROMY-7 score (0-4 normal; 5-9 mild; 10-14 moderate; 15-21 severe): 0 Source: Developed by Yecenia Lynn Kurt Kroenke and colleagues, with an educational héctor from [employer]. JEROMY-7 Assessment Billing JEROMY-7 Assessment Tool: JEROMY-7 Assessment 10950 Review of Systems Const Reports no additional complaints Eyes Details: Sees Dr. Garcia yearly Card Denies chest pain, Denies chest pain at rest, Denies chest pain with activity, Denies pedal edema and Denies dyspnea Resp Denies cough and Denies dyspnea GI Denies abdominal pain Reports no additional complaints Musc Denies abnormal gait, Denies muscle cramps and Denies radiating pain into limb Skin/Breast Denies breast pain, Denies breast mass and Denies rash Neuro Denies abnormal gait Psych Reports no additional complaints Endo Reports no additional complaints Miguel A/Lymph Reports no additional complaints Aller/Immun Reports no additional complaints Physical exam (Primary Care) Vital Signs: Last Vital Signs Temp 98.1 F 10/07/24 10:08 Pulse 91 10/07/24 10:08 Resp 17 10/07/24 10:08 BP 120/64 10/07/24 10:08 Pulse Ox 98 10/07/24 10:08 Oxygen Delivery Method Room Air 10/07/24 10:08 BMI result Body Mass Index 24.0 Tobacco/Smoking Status: Tobacco use Status Tobacco use date assessed 10/07/24 10/07/24 10:10 Patient Tobacco Use Status Former Tobacco user 10/07/24 10:10 Tobacco use type Cigarette 10/07/24 10:10 e-Cigarette/Vaping Use Never Used 10/07/24 10:10 PHQ-9: PHQ-9 Score PHQ-9: Total score 3 10/07/24 10:51 Depression Screening Interpretation: Negative Thrive Assessment: Date of Thrive Assessment Date Thrive assessed 09/03/24 10/07/24 10:10 Currently or been in a relationship where the following occur: No concerns reported Advance Care Planning discussion: Completed/Scanned Date of discussion: 10/07/24 Who was present: Patient Forms completed: Health Care Proxy Time spent: 16-45 minutes Actual minutes spent: 3 Const General: comfortable, no acute distress and alert Orientation/consciousness: patient oriented x3 HENMT Ears: external ears normal General nose exam: Normal external nose present Mouth: moist mucous membranes Eyes General: appearance normal, both eyes and all related structures Neck Neck: Yes full ROM, Yes no lymphadenopathy and Yes supple Chest Breast/axilla palpation: normal palpation of the breasts Resp Effort & Inspection: normal respiratory effort and able to speak in complete sentences Auscultation: clear to auscultation bilaterally Cardio Rate: regular rate Rhythm: regular rhythm Heart sounds: S1 normal heart sound present and S2 normal heart sound present GI Palpation (GI): Soft to palpation and nontender Auscultation: normal bowel sounds General: Yes no CVA tenderness Back/Spine/Pelvis Back: no CVA tenderness Skin General skin exam: no rashes or lesions noted Neuro General: patient oriented x3, gait normal, tone normal, moves all extremities, Normal light touch and pain sensation and no focal motor deficits Gait exam (Neuro): Normal gait present Extrem General: Yes full ROM, Yes no joint enlargement, Yes no clubbing, cyanosis or edema and Yes normal gait Psych Appearance: grossly normal Mental Status: mental status grossly normal Speech and movement: Normal speech and movement present Affect: normal affect Coding Level of Care Code Est Pt Prev Care >65y(57563) Diagnoses Annual visit for general adult medical examination with abnormal findings Z00.0 1 Hyperlipidemia E78.5 Osteopenia of left femoral neck M85.852 CAD (coronary artery disease) I25.10 Carotid stenosis, bilateral I65.23 History of adenomatous polyp of colon Z86.0101 Advanced directives, counseling/discussion Z71.89 Additional Codes JEROMY-7 Assessment Billing - JEROMY-7 Assessment Tool: JEROMY-7 Assessment 88459 ([id number]) PHQ-9 - 17245 - PHQ-9 Billing: Yes ([id number]) Vital Signs *Quality* - Advance Care Planning discussion: Completed/Scanned ([id number]) Vital Signs *Quality* - Time spent: 16-45 minutes ([id number]) Assessment & Plan Assessment & Plan (1) Annual visit for general adult medical examination with abnormal findings: Code(s): Z00.01 - Encounter for general adult medical examination with abnormal findings Plan: Will check appropriate labs. Recommended dental visit every 6 months and regular eye exams, at least every 2 years. Take adequate calcium in diet and vitamin-D 3 at 2000 IU per cap once a day, in addition to weight-bearing exercises to help maintain good muscle tone and weight control. Instructed to do self-breast exam, and r can you to do regular screening mammograms and bone density scan, both scheduled already for later this year. Colonoscopy is not due until next year with Dr. Adames due to presence of a tubular adenoma polyp on last screening done 2020. Up-to-date with her COVID vaccine booster, fl vaccine and pneumococcal vaccination, reminded to get her flu vaccine (2) Hyperlipidemia: Code(s): E78.5 - Hyperlipidemia, unspecified Category: Medical Plan: fasting lipid profile ordered . Currently on ezetimibe 10 mg daily, Bempedoic acid 180 mg daily and rosuvastatin 40 mg daily , in addition to adherence to low-cholesterol diet and regular exercise, at least 30 minutes 3 to 4 times a week. Advised patient to make healthy food choices, eat more fruits, vegetables, whole grains, wild caught fish and low-fat dairy. Limit amount of meat and fried or fatty food products, as well as processed foods and fast foods. (3) Osteopenia of left femoral neck: Code(s): M85.852 - Other specified disorders of bone density and structure, left thigh Category: Medical Plan: Reinforced importance of doing regular weight-bearing exercise, continue taking vitamin-D 3 supplements, vitamin-D level checked today. Take adequate calcium dietary sources. Repeat bone density scan later this year (4) CAD (coronary artery disease): Code(s): I25.10 - Atherosclerotic heart disease of [place] coronary artery without angina pectoris Category: Medical Plan: Followed by cardiology currently on aspirin 81 mg daily, cholesterol being controlled with ezetimibe, Nexletol and rosuvastatin. Blood pressure stable and controlled on metoprolol tartrate mg 1 tablet twice a day (5) Carotid stenosis, bilateral: Code(s): I65.23 - Occlusion and stenosis of bilateral carotid arteries Category: Medical Plan: Continue aspirin 81 mg daily (6) History of adenomatous polyp of colon: Code(s): Z86.0101 - Personal history of adenomatous and serrated colon polyps Category: Medical Plan: Ordered CBC, repeat colonoscopy due next year with Dr. Adames (7) Advanced directives, counseling/discussion: Code(s): Z71.89 - Other specified counseling Plan: Initiated the conversation about Advanced Directives. Advanced Directives help patients prepare for current and future decisions about their medical treatment and place of care. Discussed with patient that it is a process where a patients current condition and prognosis are reviewed, their wishes for information regarding their illness are elicited, and likely medical dilemmas are presented and options discussed. Healthcare proxy form completed today. The form can be amended as needed, reviewed yearly and make changes as needed Orders: Orders Lipid Panel 10/08/24 D50.9 - Iron deficiency anemia, unspecified, E78.5 - Hyperlipidemia, unspecified, I25.10 - Atherosclerotic heart disease of [place] coronary artery without angina pectoris, I65.23 - Occlusion and stenosis of bilateral carotid arteries, M85.852 - Other specified disorders of bone density and structure, left thigh Basic Metabolic Panel Fasting 10/08/24 D50.9 - Iron deficiency anemia, unspecified, E78.5 - Hyperlipidemia, unspecified, I25.10 - Atherosclerotic heart disease of [place] coronary artery without angina pectoris, I65.23 - Occlusion and stenosis of bilateral carotid arteries, M85.852 - Other specified disorders of bone density and structure, left thigh Vitamin D 25-OH Total 10/08/24 D50.9 - Iron deficiency anemia, unspecified, E78.5 - Hyperlipidemia, unspecified, I25.10 - Atherosclerotic heart disease of [place] coronary artery without angina pectoris, I65.23 - Occlusion and stenosis of bilateral carotid arteries, M85.852 - Other specified disorders of bone density and structure, left thigh Aspartate Amino Transferase 10/08/24 D50.9 - Iron deficiency anemia, unspecified, E78.5 - Hyperlipidemia, unspecified, I25.10 - Atherosclerotic heart disease of [place] coronary artery without angina pectoris, I65.23 - Occlusion and stenosis of bilateral carotid arteries, M85.852 - Other specified disorders of bone density and structure, left thigh Alanine Aminotransferase 10/08/24 D50.9 - Iron deficiency anemia, unspecified, E78.5 - Hyperlipidemia, unspecified, I25.10 - Atherosclerotic heart disease of [place] coronary artery without angina pectoris, I65.23 - Occlusion and stenosis of bilateral carotid arteries, M85.852 - Other specified disorders of bone density and structure, left thigh Complete Blood Count Auto Diff 10/08/24 D50.9 - Iron deficiency anemia, unspecified, E78.5 - Hyperlipidemia, unspecified, I25.10 - Atherosclerotic heart disease of [place] coronary artery without angina pectoris, I65.23 - Occlusion and stenosis of bilateral carotid arteries, M85.852 - Other specified disorders of bone density and structure, left thigh XR DEXA axial skeleton 07/07/25 M85.852 - Other specified disorders of bone density and structure, left thigh, Z78.0 - Asymptomatic menopausal state Referrals Gastroenterology Referral Z86.0101 - Personal history of adenomatous and serrated colon polyps
== END 2024-10-07 10:49 | disposition home or self-care (01) ==
LOC: HO.HMCC 09:45
PROVIDERS: PCP Internal Medicine; Visit Provider Internal Medicine
DX: Z00.00 Encounter for general adult medical examination without abnormal findings (principal); E78.5 Hyperlipidemia, unspecified; M85.852 Other specified disorders of bone density and structure, left thigh; I25.10 Atherosclerotic heart disease of native coronary artery without angina pectoris; I65.23 Occlusion and stenosis of bilateral carotid arteries; Z86.0101 Personal history of adenomatous and serrated colon polyps; Z71.89 Other specified counseling

== ENCOUNTER → 2024-10-07 09:45 | Outpatient (BNVA) | payer MEDICARE, BC, SELFPAY | PROVIDERS: PCP Internal Medicine; Visit Provider Internal Medicine | DX: Z00.01 Encounter for general adult medical examination with abnormal findings (principal); E78.5 Hyperlipidemia, unspecified; M85.852 Other specified disorders of bone density and structure, left thigh; I25.10 Atherosclerotic heart disease of native coronary artery without angina pectoris; I65.23 Occlusion and stenosis of bilateral carotid arteries; Z86.0101 Personal history of adenomatous and serrated colon polyps; Z71.89 Other specified counseling | CPT/HCPCS: 96127; 99397 ==

== ENCOUNTER 2024-10-08 09:08 | Outpatient (REF) | payer MEDICARE, BC, SELFPAY ==
[2024-10-08 10:41] LABS: MANUAL DIFF FLAG NO
[2024-10-08 10:52] LABS: Basophils Absolute Auto 0.1 X10*3/uL (0.0-0.2); Basophils Percent Auto 1.1 % (0-2); Eosinophils Absolute Auto 1.6 X10*3/uL (0.0-0.4); Eosinophils Percent Auto 12.9 % (0-4); Hematocrit 41.4 % (37.0-47.0); Hemoglobin 13.7 g/dl (12.0-16.0); Imm Gran Abs Auto 0.07 X10*3/uL (0.00-0.03); Imm Gran Pct Auto 0.6 % (0.0-0.4); Lymphocytes Absolute Auto 2.9 X10*3/uL (1.2-4.9); Mean Corpuscular HGB Conc 33.1 g/dl (31.0-35.0); Mean Corpuscular Hemoglobin 30.5 pg (27.0-33.0); Mean Corpuscular Volume 92.2 fL (80.0-98.0); Mean Platelet Volume 11.4 fL (9.4-12.3); Monocytes Absolute Auto 0.7 X10*3/uL (0.1-1.2); Monocytes Percent Auto 5.7 % (2-11); Neutrophils Percent Auto 56.7 % (45-73); Platelet Count 322 X10*3/uL (160-400); Red Blood Count 4.49 X10*6/uL (4.20-5.50); Red Cell Distribution Width 15.1 % (11.0-16.0); White Blood Count 12.4 X10*3/uL (4.8-10.8)
[2024-10-08 11:04] LABS: Alanine Aminotransferase 17 U/L (0-31); Anion Gap 12 (12-20); Blood Urea Nitrogen 14 mg/dL (9-16); Calcium 9.7 mg/dL (8.4-10.2); Carbon Dioxide 22 mmol/L (22-29); Chloride 111 mmol/L (96-108); Cholesterol 146 mg/dL (<200); Estimated Glomerular Filt Rate > 60; Glucose Fasting 101 mg/dL (60-99); HDL Cholesterol 60 mg/dL (>40); LDL Cholesterol Calculated 61 mg/dL (<100); Potassium 4.1 mmol/L (3.3-5.1); Sodium 141 mmol/L (135-145); Triglycerides 126 mg/dL (<150)
[2024-10-08 11:20] LABS: Aspartate Amino Transferase 24 U/L (5-31)
== END 2024-10-08 09:09 | disposition home or self-care (01) ==
LOC: HO.HMGCLDS 09:08
PROVIDERS: PCP Internal Medicine; Visit Provider Internal Medicine
DX: I25.10 Atherosclerotic heart disease of native coronary artery without angina pectoris (principal); I65.23 Occlusion and stenosis of bilateral carotid arteries; M85.852 Other specified disorders of bone density and structure, left thigh; E78.5 Hyperlipidemia, unspecified; D50.9 Iron deficiency anemia, unspecified
CPT/HCPCS: 36415; 80048; 80061; 82306; 84450; 84460; 85025

== ENCOUNTER 2024-10-22 10:00 | Outpatient (RCR) | payer MEDICARE, BC, SELFPAY ==
--- NOTE | 2024-09-25 13:47 | MHC.PT.EP ---
[facility] [place] [facility] [place] [facility] [place] Office [address] Keron Nunes [address] [phone] F: [phone] F: [phone] F: [phone] F: [phone] Physical Therapy Plan of Care Date of Evaluation: 09/25/24 Date of Surgery: 07/27/2024 Diagnosis: R inguinal hernia repair 07/27/2024 Assessment: Patient is a 74 year old female presenting to PT s/p R inguinal hernia repair 07/27/2024. She presents today with impairments in pain, scar sensitivity, hip strength, core strength. Pt's current occupation is retired, with baseline physical activities including ADLs, ambulating, stair negotiation, household duties, lifting. 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 Clinical presentation today is most consistent with signs and sx associated with R inguinal hernia repair 07/27/2024 and pt will benefit from skilled PT 2 week x 4 weeks to address the following problems and impairments noted upon evaluation: pain, scar sensitivity, hip strength, core strength. These problems limit the patient with the following functional activities: ADLs, ambulating, stair negotiation, household duties, lifting. The prescribed treatment plan of care is medically necessary. Co-morbidities of CVA 2016, osteopenia, depression were identified and taken into considerations of plan of care. Pt was educated on HEP, role of PT, prognosis, POC. Frequency and Duration: The patient will be seen 2 x week x 4 weeks Short Term Goals: Pt will demonstrate improved hip MMT strength by 1/3 grade in 2 weeks. Pt will demonstrate ability to properly breath while performing PPT to avoid increasing intraabdominal pressure in 2 weeks. Pt will demonstrate less sensitivity to incision and surrounding tissue in 2 weeks. Usp Goals: Pt will demonstrate improved LEFI score by 9 points in 4 weeks for improved functional mobility. Pt will demonstrate ability to ambulate community distances with min to no pain in 4 weeks for return to PLOF. Pt will demonstrate ability to carry groceries with min to no pain in 4 weeks for return to PLOF. Treatment Plan: Modalities to reduce pain, spasms and effusion. Manual therapy to restore motion and function. Therapeutic exercise to improve strength and flexibility. Neuromuscular re-education for posture and balance. Therapeutic activities to return to functional activities of daily living. Electronically signed by: Ashly Lazaro PT, DPT, ATC Please sign and return to therapist. Thank you for your referral.
--- NOTE | 2024-11-24 10:22 | MHC.PT.DC ---
[facility] [place] Office [place] Office [place] Office [address] Keron Nunes [address] [facility] [phone] F: [phone] F: [phone] F: [phone] F: [phone] Physical Therapy Discharge Report Diagnosis: R inguinal hernia repair 07/27/2024 Date of Surgery: 07/27/2024 Date of Evaluation: 09/25/24 Date of Discharge: 11/24/24 Treatments to Date: 6 Cancellations to Date: 6 No Shows to Date: 0 Discharge Status: Patient Elected to Stop Discharge Summary: Pt cancelled her last appointment and has not called to be scheduled in >30 days. Therefore to be d/c. Electronically signed by: Ashly Lazaro, PT, DPT, ATC Please sign and return to therapist. Thank you for your referral.
== END 2024-11-24 10:22 | disposition home or self-care (01) ==
LOC: HO.PTCHIC 10:00
PROVIDERS: PCP Internal Medicine; Visit Provider Surgery
DX: K40.90 Unilateral inguinal hernia, without obstruction or gangrene, not specified as recurrent (principal); Z98.890 Other specified postprocedural states; I25.10 Atherosclerotic heart disease of native coronary artery without angina pectoris; I35.0 Nonrheumatic aortic (valve) stenosis
CPT/HCPCS: 97110; 97112; 97140; 97161

== ENCOUNTER 2025-01-20 10:21 | Outpatient (AMB) | payer MEDICARE, BC, SELFPAY ==
[2025-01-20 10:29] VITALS: BP 118/66; PULSE 70; BMI 23.7
--- NOTE | 2025-01-20 10:29 | MHC.OFFVIS ---
Vital Signs 01/20/25 10:29 Height 5 ft 4 in Weight 138 lb BMI 23.7 BP 118/66 Blood Pressure Location Lt brachial Position Sitting Pulse 70 Pulse Source Pulse Oximeter Intake Visit Reasons: 6 mth fu Allergies Penicillins Allergy (Intermediate, Verified 10/07/24 10:15) HIVES Medication List - Last Reconciled 01/20/25 by Steve Mai MD aspirin (Adult Low Dose Aspirin) 81 mg PO DAILY bempedoic acid (Nexletol) 180 mg PO DAILY cholecalciferol (vitamin D3) 1,250 mcg PO QWEEK 3 months ezetimibe 10 mg PO DAILY metoprolol tartrate 50 mg PO BID rosuvastatin 40 mg PO BEDTIME HPI Comments Details: Carlene comes for follow-up. She is doing well from cardiac perspective. She is active. She can walk for long distance without any exertional chest pain or shortness of breath at this point time. Denies any lightheadedness, syncope. No orthopnea, PND, leg edema. Continues to have numbness over the left chest area with sensitivity at the site of PARK harvesting. Also having some sensitivity at the site of venous graft harvesting. Taking all her medications. Most recent LDL was 61 mg/dL. She had a recent follow up with vascular with noted stable carotid disease as per her. [facility] Medical History History of CVA (cerebrovascular accident) History of iron deficiency anemia History of adenomatous polyp of colon History of right inguinal hernia Abdominal mass, right lower quadrant Osteopenia of left femoral neck Recurrent major depression in partial remission H. pylori infection Hx of carotid stenosis Hyperlipidemia CAD (coronary artery disease) Dyslipidemia Surgical History History of right inguinal hernia repair (07/27/24) Status post aorto-coronary artery bypass graft S/P CABG x 2 History of dental surgery Hx of colonoscopy Status post cardiac catheterization Family History Paternal Grandfather Stomach cancer Mother CAD (coronary artery disease) Brother No problems noted. Brother No problems noted. Brother No problems noted. Brother No problems noted. Sister No problems noted. Son No problems noted. Son No problems noted. Daughter No problems noted. Social History Household Members: Family Housing: House Are you a primary career development engineer to a significant other at home: No Do you presently have visiting nurse or other home services: No Alcohol intake: current Alcohol intake frequency: holidays/special occasions only Alcohol type: wine Comment: aware of trip hazard Patient Tobacco Use Status: Former Tobacco user Tobacco use type: Cigarette e-Cigarette/Vaping Use: Never Used Current occupational status: retired Cognitive needs: No Hearing needs: No Vision needs: Yes Review of Systems Const Denies weakness Eyes Reports no additional complaints ENT Reports no additional complaints and Denies dizziness Card Denies chest pain, Denies chest pain with activity, Denies syncope, Denies rapid heart rate, Denies pedal edema, Denies edema, Denies leg edema, Denies lightheadedness, Denies palpitations, Denies dyspnea, Denies dyspnea on exertion and Denies orthopnea Resp Reports no additional complaints, Denies cough, Denies dyspnea and Denies dyspnea on exertion GI Denies hematochezia and Denies change in stool character Musc Denies abnormal gait, Denies muscle cramps, Denies muscle weakness, Denies numbness, Denies radiating pain into limb and Denies tingling Neuro Denies abnormal gait, Denies dizziness, Denies syncope, Denies numbness, Denies tingling and Denies weakness Endo Denies palpitations Physical Exam Vital Signs: Last Vital Signs Pulse 70 01/20/25 10:29 BP 118/66 01/20/25 10:29 BMI result Body Mass Index 23.7 Const General: cooperative, healthy appearing, comfortable and no acute distress Orientation/consciousness: patient oriented x3 Neck Neck: Yes normal visual inspection Chest Other: sternal incision well healed Resp Effort & Inspection: normal respiratory effort Auscultation: clear to auscultation bilaterally, no rales, no rhonchi and no wheezes Cardio Jugular venous distension: no JVD Rate: regular rate Rhythm: regular rhythm Heart sounds: S1 normal heart sound present, S2 normal heart sound present, Murmur heart sound present systolic mid, decrescendo, crescendo and soft and no rubs Neuro General: patient oriented x3 Extrem General: Yes normal to inspection and No no pedal edema Psych Appearance: grossly normal Mental Status: mental status grossly normal Speech and movement: Normal speech and movement present Assessment & Plan Assessment & Plan (1) CAD (coronary artery disease): Code(s): I25.10 - Atherosclerotic heart disease of [place] coronary artery without angina pectoris Category: Medical Plan: CAD status post coronary artery bypass grafting as well as diffuse significant atherosclerotic disease. She is doing well from cardiac perspective with good functionality at current point time with no symptoms of angina. Continue aggressive medications therapy. Continue low-dose aspirin therapy for life. Continue current aggressive lipid modification with rosuvastatin, ezetimibe as well as bempedoic acid. LDL is well optimized. Encouraged to continue to participate in regular physical activity. Continue aggressive blood pressure control which is currently well optimized. Will follow up in 6 months time. (2) Aortic stenosis: Code(s): I35.0 - Nonrheumatic aortic (valve) stenosis Category: Medical Plan: Aortic stenosis which appears to be [id number] by clinical exam by echocardiogram. Follow-up echocardiogram in 6 months time. Continue aggressive vascular risk factor modification above. At current level no interventions required. This was discussed with her. Will follow up in the clinic in 6 months time, sooner p.r.n.. Thank you for allowing me to partake in her care Orders: Orders CA echo transthoracic complete 6 Months I35.0 - Nonrheumatic aortic (valve) stenosis Coding Level of Care Code Est Pt Level 4 (08918) Complex EM visit Add On G2211 Diagnoses CAD (coronary artery disease) I25.10 Aortic stenosis I35.0
--- OUTSIDE RECORDS SUMMARY | 2025-01-20 11:44 | XMS_ITS | Patient Health Record ---
[facility] Organization [facility] [place] Address [address] [place] [address] Care Team Providers Care Licensed Electrician Name Role Phone Velia RODRIGUEZ, Traci Mnia Primary Care Provider Un available Black, Monica Unavailable [phone] Allergies Allergen (clinical drug ingredient) Drug/Non Drug Allergy documented on EMR Reaction Allergy Type Onset Date Status Penicillin hives Drug Allergy Active Reason For Referral No Information Medications Medication SIG (Take, Route, Frequency, Duration) Notes Start Date End Date Status Citalopram & Diet Manage Prod Active Aspirin Active Crestor Active Isosorbide Mononitrate Active Mirtazapine Active dilTIAZem HCl Active Problems Problem Type SNOMED Code ICD Code Onset Dates Problem Status W/U Status Risk Notes Problem Verruca plantaris (06253042) Verruca Plantaris (078.19) Active confirmed Problem Onychomycosis (325296342) Onychomycosis (110.1) Active confirmed Problem Pain in Limb (729.5) Active confirmed Plan Of Treatment Pending Test Test Name Order Date [id number] NAIL, 6 OR MORE 11/05/2012 [id number] NAIL, 6 OR MORE 02/09/2013 [id number] NAIL, 6 OR MORE 05/11/2013 [id number] Destruction, 1-14 11/05/2012 Insurance Providers Payer Name Payer Address Payer Phone Subscriber Number Group Number Insured Name Patient Relationship to Insured Coverage Start Date Coverage End Date [facility] [address] [place] [address] [phone] [id number] Carlene Gannon Self - patient is the insured Medical (General) History Medical History History ICD Code angina hyperlipidemia heart disease chicken pox measles mumps vascular grafts Surgical History Surgery Date(Month/Year) bladder surgery heart catheter angioplasty Hospitalization History Reason Date(Month/Year) [place], 3 days, medication check, heart enzymes 04/2013
== END 2025-01-20 10:53 | disposition home or self-care (01) ==
LOC: HO.HCS 10:21
PROVIDERS: PCP Internal Medicine; Visit Provider Internal Medicine Cardiovascular Disease
DX: I25.10 Atherosclerotic heart disease of native coronary artery without angina pectoris (principal); I35.0 Nonrheumatic aortic (valve) stenosis
CPT/HCPCS: 99214; G2211

== ENCOUNTER → 2025-01-20 10:21 | Outpatient (BNVA) | payer MEDICARE, BC, SELFPAY | PROVIDERS: PCP Internal Medicine; Visit Provider Internal Medicine Cardiovascular Disease | DX: I25.10 Atherosclerotic heart disease of native coronary artery without angina pectoris (principal); I35.0 Nonrheumatic aortic (valve) stenosis | CPT/HCPCS: 99212 ==

== ENCOUNTER 2025-07-07 10:54 | Outpatient (REF) | payer MEDICARE, BC, SELFPAY ==
--- NOTE | ~2025-07-07 | MM_ITS ---
EXAMINATION: DXA BONE DENSITY AXIAL HISTORY: M85.852 - Other specified disorders of bone density and structure, left ... TECHNIQUE: BoxC Dual energy absorptiometry (DEXA) of the lumbar spine, total left hip, and femoral neck was performed. COMPARISON: Comparison is made with the prior examination dated 09/18/2022. FINDINGS: The bone mineral density of the lumbar spine is 1.148 g/cm2, corresponding to a T-score of -0.3, and a Z-score of 1.7. This is indicative of normal bone mineral density. This represents a BMD change of -0.9% compared to the prior exam. This is not statistically significant. The bone mineral density of the left total hip is 0.922 g/cm2, corresponding to a T-score of -0.7, and a Z-score of 1.2. This is indicative of normal bone mineral density. This represents a BMD change of 1.5% compared to the prior exam. This is not statistically significant. The bone mineral density of the left femoral neck is 0.839 g/cm2, corresponding to a T-score of -1.4, and a Z-score of 0.6. This is indicative of osteopenia. This represents a BMD change of -2.9% compared to the prior exam. FRACTURE RISK: The FRAX index suggests a ten year probability of major osteoporotic fracture of 10.4%, and of hip fracture 2.1%. MM/XR DEXA axial skeleton IMPRESSION: Based on bone mineral density, and according to World Health Organization (WHO) criteria, the diagnosis is consistent with osteopenia. Statistically, 68% of repeat scans fall within 1 SD (+/- 0.010 g/cm2 for AP spine L1-L4) and 1 SD (+/- 0.012 g/cm2 for femur total) FRAX is a trademark of the [employer]'s [place] [facility] Metabolic Bone Disease, a World Health Organization (WHO) Collaborating Center. Electronically signed by: Hardik Ledesma MD 07/07/2025 11:48 AM [facility]
--- NOTE | ~2025-07-07 | MM_ITS ---
EXAMINATION: MM SCREENING DIGITAL BREAST TOMOSYNTHESIS, BILATERAL CLINICAL INFORMATION: Screening. Asymptomatic. COMPARISON: Mammography: Comparison is made with available priors TECHNIQUE: Digital breast mammography with tomosynthesis is performed in both the craniocaudal and mediolateral oblique views along with computer-aided detection (CAD). FINDINGS: There are scattered areas of fibroglandular density. There are no significant masses, abnormal calcifications, or other abnormalities. MM/MM tomosynthesis screening BI IMPRESSION: No mammographic evidence of malignancy. ASSESSMENT: BI-RADS Category 1: Negative RECOMMENDATION: Routine annual mammography screening. 1 year F/U This examination should not preclude the clinical evaluation of a suspicious palpable abnormality. This patient's information was entered into a reminder system with a target due date for their next mammogram. Electronically signed by: Sarah Fulton DO 07/09/2025 05:56 PM [facility]
--- OUTSIDE RECORDS SUMMARY | 2025-07-07 12:47 | XMS_ITS | Patient Health Record ---
Author Organization [facility] [place] Address [address] [place] [address] Care Team Providers Care Electronics Processing Supervisor Name Role Phone Velia RODRIGUEZ, Traci Mina Primary Care Provider Un available Black, Monica Unavailable [phone] Allergies Allergen (clinical drug ingredient) Drug/Non Drug [...] W/U Status Risk Notes Problem Verruca plantaris (95338435) Verruca Plantaris (078.19) Active confirmed Problem Onychomycosis (316199465) Onychomycosis (110.1) Active confirmed Problem Pain in limb (83522671) Pain in Limb (729.5) Active confirmed Plan Of Treatment Pending Test Test Name Order Date [id number] NAIL, 6 OR MORE 11/05/2012 [id number] NAIL, 6 OR MORE 02/09/2013 [id number] NAIL, 6 OR MORE 05/11/2013 [id number] Destruction, 1-14 11/05/2012 Insurance Providers Payer Name Payer Address Payer Phone Subscriber Number Group Number Insured Name Patient Relationship to Insured Coverage Start Date Coverage End Date [facility] [address] [place] [address] [id number] Carlene Gannon Self - patient is the insured Medical (General) History Medical History History ICD Code angina hyperlipidemia heart disease chicken pox measles mumps vascular grafts Surgical History Surgery Date(Month/Year) bladder surgery heart catheter angioplasty Hospitalization History Reason Date(Month/Year) [place], 3 days, medication check, heart enzymes 04/2013
== END 2025-07-07 10:55 | disposition home or self-care (01) ==
LOC: HO.MAMMO 10:54
PROVIDERS: Visit Provider Internal Medicine
DX: Z12.31 Encounter for screening mammogram for malignant neoplasm of breast (principal); M85.852 Other specified disorders of bone density and structure, left thigh; Z78.0 Asymptomatic menopausal state
CPT/HCPCS: 77063; 77067; 77080

== ENCOUNTER → 2025-07-07 11:30 | Outpatient (BNV) | payer MEDICARE, BC, SELFPAY | PROVIDERS: Visit Provider Radiology Diagnostic Radiology | DX: E28.39 Other primary ovarian failure (principal) | CPT/HCPCS: 77080 ==

== ENCOUNTER → 2025-07-12 12:43 | Outpatient (REF) | payer MEDICARE, BC, SELFPAY ==
--- NOTE | 2025-07-12 12:46 | CA_ITS ---
Transthoracic Echocardiogram Patient (Last, First, Middle): Carlene Gannon M Gender: Female Date of : 1950 Age: 75 Procedure Date: 07/12/2025 Procedure Type: Transthoracic Echocardiogram Location: OP Height: 162.56 cm Weight: 62.6 kg BSA: 1.67 m2 Heart Rate: 71 bpm BP: 118 / 64 mmHg Social Sciences Lecturer: SHANIQUA Referring MD: Steve Mai MD Global Expansion Sales Director: Steve Mai MD Symptoms: I35.0 - Nonrheumatic aortic (valve) stenosis Study Quality: Adequate ECG Rhythm: Sinus Conclusions: - 1. Normal LV ejection fraction of 60-65% with impaired relaxation filling pattern 2. [id number]-[id number] aortic stenosis with a mean gradient of 10 mm Hg, possibly overestimated severity of aortic stenosis 3. Normal RV systolic pressure 4. No gross pericardial effusion Findings Left Ventricle Normal left ventricular size, thickness, and systolic function. The visually estimated ejection fraction is between 60-65%. Spectral Doppler is indicative of an impaired relaxation filling pattern. E/E prime ratio is between 8 and 15 consistent with indeterminate filling pressures. Right Ventricle Normal right ventricular cavity size and systolic function. Atria Both atria are normal in size. There is no evidence of interatrial shunt. Aortic Valve There is mild calcification of the aortic valve. There is moderate thickening of the aortic valve. There is mild to moderate aortic valve stenosis. The peak aortic gradient is 19 mmHg.The mean gradient is 10 mmHg. The aortic valve area is 1.10 cm2. There is no aortic valve regurgitation. Mitral Valve There is mild anterior and posterior mitral leaflet thickening. There is mild anterior and mild posterior mitral annular calcification. There is mild mitral annular calcification. There is no mitral valve regurgitation. There is no mitral valve stenosis. Tricuspid Valve Likely normal tricuspid valve structure and function. There is trace tricuspid valve regurgitation. The right ventricular systolic pressure is normal. The right ventricular systolic pressure is 24 mmHg. Normal right atrial pressure. There is no evidence of pulmonary hypertension. Great Vessels All visible segments of the aorta are normal in size. The pulmonary artery was not well visualized. There is no dilatation of the ascending aorta measuring 2.90 cm. Venous The inferior vena cava is normal in size and collapses greater than 50% with inspiration. Pericardium/Pleural There is no evidence of pericardial effusion. Prior Study Comparison No significant change compared to prior study dated: 03/10/2024. Measurements 2D Linear Measurements IVSd: 0.77 0.6-0.9/0.6-1.0 cm LVIDd: 4.34 3.9-5.3/4.2-5.9 cm LVIDd Index: 2.60 2.4-3.2/2.2-3.1 cm/m2 LVIDs: 2.64 2.0-3.6 cm LVPWd: 0.62 0.7-1.1 cm LA Diam: 3.20 2.7-3.8/3.0-4.0 cm LAIDs Index: 1.92 1.5-2.3 cm/m2 LV Mass: 110.23 67-162/88-224 g LV Mass Index: 66.01 43-95/49-115 g/m2 LVOT Diam: 2.00 3.0+(-)1.3 cm 2D Systolic Function EF 4C: 60.70 >55% EF 2C: 62.90 >55% EF BiP: 62.20 >55% Mitral Valve MV Pk E: 0.85 MV PK A: 0.78 MV Decel Time: 192.00 E/A: 1.10 E'Lateral: 7.29 E'Medial: 5.55 E/E' Med: 15.20 E/E' Lat: 11.60 PHT: 56.00 MVA PHT: 3.93 Decel Catron: 4.41 Aortic Valve AoV Pk Wayne: 2.18 AoV Mn Wayne: 1.52 AoV VTI: 0.49 AoV Pk Grad: 19.00 Aov Mn Grad: 10.00 KYLIE Cont.VTI: 1.10 LVOT LVOT Pk Wayne: 0.78 LVOT Mn Wayne: 0.51 LVOT VTI: 0.17 LVOT Pk Grad: 2.00 LVOT Mn Grad: 1.00 LVOT Diam: 2.00 LVOT Area: 3.14 Diastolic Function MV Pk E: 0.85 MV Pk A: 0.78 E/A: 1.10 E'Medial: 5.55 E/E' Med: 15.20 E' Laterial: 7.29 E/E' Lat: 11.60 Right Ventricle TAPSE (mm): 16.30 TVS' Wayne: 7.18 Tricuspid Valve TR Pk Wayne: 2.30 TR Pk Grad: 21.00 RA Press: 3.00 RVSP: 24.00 Great Vessels Aorta Sinus of Valsalva: 2.70 2.0-3.5 cm Ao Asc: 2.90 2.1-3.4 cm Pulmonary Valve PV Pk Wayne: 1.02 Peak PV Grad: 4.00 Updated in Other Vendor System with Status of Final Steve Mai MD electronically signed on 07/13/2025 11:39:22 AM with status of Final
== END ==
LOC: HO.CARD 12:43
PROVIDERS: PCP Internal Medicine; Visit Provider Internal Medicine Cardiovascular Disease
DX: I35.0 Nonrheumatic aortic (valve) stenosis (principal)
CPT/HCPCS: 93306

== ENCOUNTER → 2025-07-12 12:46 | Outpatient (BNV) | payer MEDICARE, BC, SELFPAY | PROVIDERS: PCP Internal Medicine; Visit Provider Internal Medicine Cardiovascular Disease | DX: I35.0 Nonrheumatic aortic (valve) stenosis (principal) | CPT/HCPCS: 93306 ==

== ENCOUNTER 2025-07-20 09:49 | Inpatient (IN) | payer MEDICARE, BC, SELFPAY ==
[2025-07-20] VITALS (7 sets, daily range): BP systolic 113–174; BP diastolic 43–75; PULSE 74–104; RESP 14–20; TEMP 36–36.8; O2SAT 94–97; BMI 21.6; BMI 23.3
--- NOTE | ~2025-07-20 | CT_ITS ---
EXAMINATION: CT ABDOMEN PELVIS WITH IV CONTRAST HISTORY: RLQ pain COMPARISON: There are no prior studies for available comparison. TECHNIQUE: CT scan of the abdomen and pelvis was performed following administration of 85 mL Omnipaque 350 using standard departmental protocol. Coronal and sagittal reformatted images were generated and reviewed. Oral contrast material was not administered at the request of the referring physician. This CT exam was performed with one or more of the following dose reduction techniques: automated exposure control, adjustment of the mA and/or kV according to patient size, use of iterative reconstruction technique. DLP: 365 mGy-cm FINDINGS: LOWER CHEST: The visualized lung bases are clear. There is no pleural effusion. CARDIOVASCULATURE: The heart is normal in size. There is no pericardial effusion. LIVER: The liver is normal in size and contour. No liver mass is identified. The hepatic and portal veins are patent. GALLBLADDER / BILE DUCTS: The gallbladder is unremarkable. There is no intra or extrahepatic biliary ductal dilatation. SPLEEN: The spleen is normal in size. No focal splenic lesion is identified. PANCREAS: The pancreas is unremarkable in appearance. ADRENAL GLANDS: Within normal limits. KIDNEYS/RETROPERITONEUM: No renal calculi are identified. There is no hydronephrosis. No renal masses are identified. LYMPH NODES: No abdominal or pelvic lymphadenopathy. VASCULATURE: The abdominal aorta demonstrates atherosclerotic calcification, but is normal in caliber. MESENTERY/PERITONEUM: No free fluid. No masses. There is no free intraperitoneal gas. STOMACH: There is a large hiatal hernia. SMALL BOWEL: The small bowel is normal in caliber. COLON: There is marked wall thickening of the cecum and proximal ascending colon. There may be associated thickening of the terminal ileum. There is diverticulosis of the sigmoid colon, without evidence of diverticulitis. APPENDIX: The appendix is mildly dilated measuring up 7 mm in diameter. This is felt to be secondary to the adjacent cecal inflammatory process. URINARY BLADDER/PELVIC ORGANS: The urinary bladder is unremarkable. The uterus is unremarkable. BONES / SOFT TISSUES: No suspicious bony or soft tissue abnormalities. CT/CT abdomen pelvis w IV con IMPRESSION: Marked wall thickening of the cecum and proximal ascending colon with possible mild involvement of the terminal ileum. Prominence of the appendix is felt to be secondary to the cecal inflammatory process. Differential diagnostic considerations include focal colitis, neoplasm, ischemia, and typhlitis in the appropriate clinical setting. Clinical correlation is recommended. Colonoscopy should be considered. Electronically signed by: Hardik Ledesma MD 07/20/2025 02:53 PM [facility]
--- NOTE | ~2025-07-20 | CT_ITS ---
EXAMINATION: CT ABDOMEN PELVIS WITH IV CONTRAST HISTORY: Abd pain ? appendicitis COMPARISON: Comparison is made with the prior examination dated 07/20/2025. TECHNIQUE: CT scan of the abdomen and pelvis was performed following administration of 85 mL Omnipaque 350 using standard departmental protocol. Coronal and sagittal reformatted images were generated and reviewed. Oral contrast material was not administered at the request of the referring physician. This CT exam was performed with one or more of the following dose reduction techniques: automated exposure control, adjustment of the mA and/or kV according to patient size, use of iterative reconstruction technique. DLP: 260 mGy-cm FINDINGS: LOWER CHEST: The visualized lung bases are clear. There is no pleural effusion. CARDIOVASCULATURE: The heart is normal in size. There is no pericardial effusion. LIVER: The liver is normal in size and contour. No liver mass is identified. The hepatic and portal veins are patent. GALLBLADDER / BILE DUCTS: There is vicarious excretion of contrast via the gallbladder from the prior CT. There is no intra or extrahepatic biliary ductal dilatation. SPLEEN: The spleen is normal in size. No focal splenic lesion is identified. PANCREAS: The pancreas is unremarkable in appearance. ADRENAL GLANDS: Within normal limits. KIDNEYS/RETROPERITONEUM: No renal calculi are identified. There is no hydronephrosis. No renal masses are identified. LYMPH NODES: No abdominal or pelvic lymphadenopathy. VASCULATURE: The abdominal aorta demonstrates atherosclerotic calcification, but is normal in caliber. MESENTERY/PERITONEUM: No free fluid. No masses. There is no free intraperitoneal gas. STOMACH: Again seen is a large hiatal hernia. The remainder the stomach is collapsed. SMALL BOWEL: The small bowel is normal in caliber. COLON: Again seen is wall thickening of the cecum which is slightly less prominent than on the prior study. APPENDIX: There is mild hyperemia of the base of the appendix, likely secondary to adjacent cecal inflammation. The appendix is normal in caliber and contains a small amount of intraluminal gas. No periappendiceal inflammatory stranding is seen to suggest acute appendicitis. URINARY BLADDER/PELVIC ORGANS: The urinary bladder is collapsed, limiting evaluation. The uterus is unremarkable. BONES / SOFT TISSUES: No suspicious bony or soft tissue abnormalities. CT/CT abdomen pelvis w IV con IMPRESSION: 1. Mild improvement in previously seen wall thickening of the cecum. 2. No evidence of acute appendicitis. 3. Large hiatal hernia. Electronically signed by: Hardik Ledesma MD 07/22/2025 12:04 PM EST
--- NOTE | 2025-07-20 10:56 | ED.ABDPAIN ---
HPI - Abdominal Pain General Chief Complaint: Abdominal Pain Stated Complaint: R side pain Time Seen by Provider: 07/20/25 11:12 Source: patient Mode of arrival: ambulatory Limitations: no limitations History of Present Illness ED Provider: RADHA PARRY PA-C HPI narrative: 75 year old female with pmhx significant for CAD, aortic stenosis, depression, HLD, 1 year s/p femoral hernia repair with Dr. Dennis presents to the ED today for evaluation of abdominal pain x2 days. Reports symptoms began two days ago as a stomach ache with associated diarrhea which then progressed to sharp RLQ abdominal pain. Reports nausea and dry heaving, no vomiting. Admits to decreased appetite and subjective fevers. She was able to tolerate soup last night - has not had anything to eat today. Reports hx of inguinal hernia repair 1 year ago - called her general surgeon who advised she come to the ED for evaluation. Denies any other abdominal surgeries. Related Data Home Medications ?Medication ?Instructions ?Recorded ?Confirmed aspirin 81 mg tablet,delayed 81 mg PO DAILY 09/13/20 01/20/25 release (Adult Low Dose Aspirin) Previous Rx's ?Medication ?Instructions ?Recorded cholecalciferol (vitamin D3) 1,250 1,250 mcg PO QWEEK 3 months #13 10/10/24 mcg (50,000 unit) capsule caps bempedoic acid 180 mg tablet 180 mg PO DAILY #30 tabs 10/19/24 (Nexletol) rosuvastatin 40 mg tablet 40 mg PO BEDTIME #90 tabs 12/01/24 metoprolol tartrate 50 mg tablet 50 mg PO BID #180 tabs 12/18/24 ezetimibe 10 mg tablet 10 mg PO DAILY #90 tabs 03/26/25 Allergies Allergy/AdvReac Type Severity Reaction Status Date / Time Penicillins Allergy Intermediate HIVES Verified 07/20/25 10:58 Review of Systems Review of Systems Yes all other systems are reviewed and are negative PMFSH Past Medical History Attestation statement: The following information was validated with the patient. Source: old records reviewed and nursing notes reviewed Medical History History of CVA (cerebrovascular accident) History of iron deficiency anemia History of adenomatous polyp of colon History of right inguinal hernia Abdominal mass, right lower quadrant Osteopenia of left femoral neck Recurrent major depression in partial remission H. pylori infection Hx of carotid stenosis Hyperlipidemia CAD (coronary artery disease) Dyslipidemia Surgical History History of right inguinal hernia repair (07/27/24) Status post aorto-coronary artery bypass graft S/P CABG x 2 History of dental surgery Hx of colonoscopy Status post cardiac catheterization Family History Family History Paternal Grandfather Stomach cancer Mother CAD (coronary artery disease) Brother No problems noted. Brother No problems noted. Brother No problems noted. Brother No problems noted. Sister No problems noted. Son No problems noted. Son No problems noted. Daughter No problems noted. Social History Social History Household Members: Family Housing: House Are you a primary child care provider to a significant other at home: No Do you presently have visiting nurse or other home services: No Alcohol intake: current Alcohol intake frequency: holidays/special occasions only Alcohol type: wine Comment: aware of trip hazard Patient Tobacco Use Status: Former Tobacco user Tobacco use type: Cigarette e-Cigarette/Vaping Use: Never Used Advance Directives: Yes Advance Directives Information Provided: Yes Advance Directives on File: No Current occupational status: retired Cognitive needs: No Hearing needs: No Vision needs: Yes Physical Exam ED Vital Signs: Vital Signs - 24 hr 07/20/25 10:54 07/20/25 13:25 07/20/25 14:02 Temperature 98.3 F 98.3 F Pulse Rate 104 H 74 99 Respiratory Rate 18 14 18 Blood Pressure 174/75 H 113/53 L 142/57 H Pulse Oximetry 96 97 96 Oxygen Delivery Method Room Air Room Air Room Air 07/20/25 14:36 Temperature Pulse Rate 87 Respiratory Rate Blood Pressure 118/43 L Pulse Oximetry Oxygen Delivery Method BMI result Body Mass Index 21.6 hypertensive, tachycardic, vitals are otherwise wnl General: Well appearing, in no acute distress. Skin: Warm, dry, intact. No rashes or lesions. Head: Normocephalic, atraumatic. EENT: Hearing is intact b/l. Conjunctiva clear. PERRLA. EOM intact. Moist mucous membranes.? Neck: Supple without LAD Cardiac: Chest wall symmetric. RRR Lungs: Normal respiratory effort without accessory muscle use. CTA bilaterally Abdomen: soft, nondistended, tender to palpation of right lower quadrant, (+) McBurney's point and (+) Rovsing's sign. No bulges or masses in the R inguinal region. No rebound tenderness or guarding. Hypoactive bowel sounds. Back: No midline spinous or paraspinal tenderness. No step off deformity. Ext: Upper and lower extremities atraumatic, without tenderness, deformity, swelling or erythema. Full ROM throughout. Neuro: AOx3. Normal speech. Ambulating with steady gait. Course Course Course Narrative: 75-year-old female with past medical history of coronary artery disease, aortic stenosis, depression, hyperlipidemia, 1 year ago she had a femoral hernia operated on by Dr. Dennis. She notes for the past couple of days she has had some Irina on and off pain in the right side of her belly and right lower quadrant. She has also had poor p.o. intake and nausea. She has not vomited. She had diarrhea but nothing in the last 1 day. She has not passed she does note she is peeing a lot more frequently. She has had not had any fevers. She has never had pain like this in the past after surgery she states it is higher than her incision. At this time I am going to obtain basic labs she will need CT scan as well this is a RAPID medical screening exam the rest of the history and physical exam is to be done by the main provider. 10:57 AM 07/20/2025 (QUINTEN BENDER): Reevaluation(s) Reevaluation #1: 1152 -- Patient has leukocytosis to 20 with neutrophil predominance. No anemia, H and H stable. Chemistry without acute electrolyte abnormality requiring intervention. No IRINA. Liver function and lipase WNL. CRP markedly elevated to 8.63. > Patient meets SIRS criteria for sepsis (tachycardia, WBCs 20, appendicitis suspected). lactic and blood cultures ordered. Patient has a penicillin allergy -- will cover with flagyl + ceftriaxone. IVF running. > IV morphine ordered for pain and Zofran ordered for nausea > CT a/p pending 1642 -- CT a/p showing: CT abdomen pelvis w IV con IMPRESSION: Marked wall thickening of the cecum and proximal ascending colon with possible mild involvement of the terminal ileum. Prominence of the appendix is felt to be secondary to the cecal inflammatory process. Differential diagnostic considerations include focal colitis, neoplasm, ischemia, and typhlitis in the appropriate clinical setting. Clinical correlation is recommended. Colonoscopy should be considered. I did reach out to general surgeon dr. headley who has reviewed the scan. She does not feel the scan is consistent with acute appendicitis. she appreciates a thickened cecum/ colon with some prominence of the appendix, not the other way around. She states the patient would benefit from admission and IV antibiotics, IV hydration and bowel rest. Will reach out to the hospitalist team regarding admission. > discussed all work up results with patient who is agreeable with admission. Medical Decision Making Medical Decision Making [facility] Narrative: 75 year old female with pmhx significant for CAD, aortic stenosis, depression, HLD, 1 year s/p femoral hernia repair with Dr. Dennis presents to the ED today for evaluation of abdominal pain x2 days. patient is hypertensive and tachycardic, vitals are otherwise wnl. she is generally well appearing and in NAD. on exam her abdomen is soft, nondistended, tender to palpation of right lower quadrant, (+) McBurney's point and (+) Rovsing's sign. No bulges or masses in the R inguinal region. No rebound tenderness or guarding. Hypoactive bowel sounds. Differential diagnoses: appendicitis, diverticulitis, diverticulosis, UTI, constipation Abdominal exam without peritoneal signs. No evidence of acute abdomen at this time. Well appearing. Low suspicion for acute hepatobiliary disease (including acute cholecystitis), acute infectious processes (pneumonia, hepatitis, pyelonephritis, PID, TOA), vascular catastrophe, bowel obstruction or viscus perforation, ovarian cyst/ rupture/ torsion, ectopic. Plan: labs, UA, CT AP, pain control, fluids, serial reassessment Differential Diagnosis Differential Diagnoses: The differential diagnosis associated with the presentation includes as above Admission/Observation Consideration of admission/observation: Escalation of care including admission/observation considered Patient admitted to medicine for management of colitis Consult Healthcare Provider Management of the patient was discussed with: Hospitalist (dr. yanes) and Department Of Mathematics Chair (general surgeon - dr. headley) Lab Data [facility] Lab Attestation statement: I reviewed the patient's lab results. as above. 07/20/25 11:10 07/20/25 11:10 Labs: Lab Results 07/20/25 07/20/25 Range/Units 11:10 12:29 WBC 20.0 H (4.8-10.8) X10*3/uL RBC 4.76 (4.20-5.50) X10*6/uL Hgb 13.9 (12.0-16.0) g/dl Hct 41.5 (37.0-47.0) % MCV 87.2 (80.0-98.0) fL MCH 29.2 (27.0-33.0) pg MCHC 33.5 (31.0-35.0) g/dl RDW 16.4 H (11.0-16.0) % Plt Count 286 (160-400) X10*3/uL MPV 11.2 (9.4-12.3) fL Immature Gran % (Auto) 0.6 H (0.0-0.4) % Neut % (Auto) 77.1 H (45-73) % Lymph % (Auto) 16.3 L (20-40) % [place] % (Auto) 4.8 (2-11) % Eos % (Auto) 0.8 (0-4) % Baso % (Auto) 0.4 (0-2) % Lymph # (Auto) 3.3 (1.2-4.9) X10*3/uL [place] # (Auto) 1.0 (0.1-1.2) X10*3/uL Eos # (Auto) 0.2 (0.0-0.4) X10*3/uL Baso # (Auto) 0.1 (0.0-0.2) X10*3/uL Abs Immat Gran (auto) 0.12 H (0.00-0.03) X10*3/uL Absolute Neuts (auto) 15.5 H (2.0-8.3) x10*3/uL Absolute Nucleated RBC 0.000 (0.0-0.012) X10*3/uL Nucleated RBC % (auto) 0.0 (0.0-0.2) /100WBC Sodium 137 (135-145) mmol/L Potassium 4.3 (3.3-5.1) mmol/L Chloride 103 (96-108) mmol/L Carbon Dioxide 25 (22-29) mmol/L Anion Gap 13 (12-20) BUN 12 (9-16) mg/dL Creatinine 0.87 (0.5-1.4) mg/dL Estim Creat Clear Calc 48.2 Estimated GFR > 60 Random Glucose 114 (60-115) mg/dL Lactic Acid 1.2 (0.5-2.0) mmol/L Calcium 10.0 (8.4-10.2) mg/dL Magnesium 2.4 (1.6-2.6) mg/dL Total Bilirubin 0.3 (0.0-1.0) mg/dL Direct Bilirubin 0.2 (0.0-0.5) mg/dL AST 24 (5-31) U/L ALT 12 (0-31) U/L Alkaline Phosphatase 113 (39-117) U/L Troponin I High Sens 8.7 (<3.5-17.0) ng/L C-Reactive Protein 8.63 H (< or = 0.50) mg/dL Total Protein 8.1 H (6.5-8.0) g/dL Albumin 4.5 (3.5-5.0) g/dL Lipase 13 (8-78) U/L Influenza Type A (PCR) NEGATIVE (Negative) Influenza Type B (PCR) NEGATIVE (Negative) RSV RNA Qual (PCR) NEGATIVE (Negative) SARS-CoV-2 RNA (RT-PCR) NEGATIVE (Negative) Independent Interpretation I performed an independent interpretation of an: CT Scan Interpretation: ct a/p showing thickened cecum, no bowel obstruction ekg showing sinus tachycardia, rate of 107, ST depressions in lead 2, 3 and AVF, V3 through V6 - evident on prior EKGs, likely chronic. Radiology Impression Discussion of test interpretation with radiology: I have reviewed the radiologist's reading. Radiologist Impression: Procedure(s): CT abdomen pelvis w IV con Accession Number(s): [id number] cc: Traci Gunn MD; Radha Parry~ Report Number: [id number]: Total DLP = 365.00 mGy-cm Reason for Exam: RLQ pain EXAMINATION: CT ABDOMEN PELVIS WITH IV CONTRAST HISTORY: RLQ pain COMPARISON: There are no prior studies for available comparison. TECHNIQUE: CT scan of the abdomen and pelvis was performed following administration of 85 mL Omnipaque 350 using standard departmental protocol. Coronal and sagittal reformatted images were generated and reviewed. Oral contrast material was not administered at the request of the referring physician. This CT exam was performed with one or more of the following dose reduction techniques: automated exposure control, adjustment of the mA and/or kV according to patient size, use of iterative reconstruction technique. DLP: 365 mGy-cm FINDINGS: LOWER CHEST: The visualized lung bases are clear. There is no pleural effusion. CARDIOVASCULATURE: The heart is normal in size. There is no pericardial effusion. LIVER: The liver is normal in size and contour. No liver mass is identified. The hepatic and portal veins are patent. GALLBLADDER / BILE DUCTS: The gallbladder is unremarkable. There is no intra or extrahepatic biliary ductal dilatation. SPLEEN: The spleen is normal in size. No focal splenic lesion is identified. PANCREAS: The pancreas is unremarkable in appearance. ADRENAL GLANDS: Within normal limits. KIDNEYS/RETROPERITONEUM: No renal calculi are identified. There is no hydronephrosis. No renal masses are identified. LYMPH NODES: No abdominal or pelvic lymphadenopathy. VASCULATURE: The abdominal aorta demonstrates atherosclerotic calcification, but is normal in caliber. MESENTERY/PERITONEUM: No free fluid. No masses. There is no free intraperitoneal gas. STOMACH: There is a large hiatal hernia. SMALL BOWEL: The small bowel is normal in caliber. COLON: There is marked wall thickening of the cecum and proximal ascending colon. There may be associated thickening of the terminal ileum. There is diverticulosis of the sigmoid colon, without evidence of diverticulitis. APPENDIX: The appendix is mildly dilated measuring up 7 mm in diameter. This is felt to be secondary to the adjacent cecal inflammatory process. URINARY BLADDER/PELVIC ORGANS: The urinary bladder is unremarkable. The uterus is unremarkable. BONES / SOFT TISSUES: No suspicious bony or soft tissue abnormalities. CT/CT abdomen pelvis w IV con IMPRESSION: Marked wall thickening of the cecum and proximal ascending colon with possible mild involvement of the terminal ileum. Prominence of the appendix is felt to be secondary to the cecal inflammatory process. Differential diagnostic considerations include focal colitis, neoplasm, ischemia, and typhlitis in the appropriate clinical setting. Clinical correlation is recommended. Colonoscopy should be considered. Independent Historian Clinical information obtained from an independent historian. History obtained from or confirmed by: Other (daughter) External Record Review External record reviewed: Inpatient record Prescription Management I considered prescription management with: Pain Medication and Antibiotic Social Determinants Patient?s care significantly limited by Social Determinants of Health including: Other Social Determinant of Health Medications Administered Discontinued Medications Generic Name Dose Route Start Last Admin Trade Name Freq PRN Reason Stop Dose Admin Sodium Chloride 1,000 mls @ 999 mls/hr 07/20/25 12:00 07/20/25 13:49 Ns IV 07/20/25 13:00 Infused .Q1H1M ADAM Infusion Metronidazole 500 mg in 100 mls @ 100 mls/hr 07/20/25 11:52 07/20/25 13:49 Flagyl IV 07/20/25 12:51 Infused ONCE ONE Infusion Ceftriaxone Sodium 1 gm/ 50 mls @ 100 mls/hr 07/20/25 11:52 07/20/25 12:55 Sodium Chloride IV 07/20/25 12:21 Infused ONCE ONE Infusion Iohexol 100 ml 07/20/25 13:55 07/20/25 13:58 Iohexol 350 Mg/Ml 100 Ml Infus..Btl IV 07/20/25 13:56 85 ml ONCE ONE Administration Morphine Sulfate 4 mg 07/20/25 11:48 07/20/25 12:13 Morphine Sulfate 4 Mg/Ml Cartridge IVPUSH 07/20/25 11:49 4 mg ONCE ONE Administration Protocol Ondansetron HCl 4 mg 07/20/25 11:48 07/20/25 12:13 Ondansetron Hcl 4 Mg/2 Ml Vial IVPUSH 07/20/25 11:49 4 mg ONCE ONE Administration Critical Care Time Critical Care Time Critical Care Time: Yes Total Critical Care Time: 48 Attestation: Critical care time in the amount of 48 minutes has been provided to the patient in terms of direct patient care, frequent reevaluation, consultation with general surgery and hospitalist, review and interpretation of medical data and results, and management of potentially life-threatening conditions. This is all outside of any medical procedures. Discharge Plan Discharge Clinical Impression: Colitis, Sepsis Patient Disposition: Admitted As Inpatient Print Language: Upper Sorbian
--- NOTE | 2025-07-20 10:58 | ECG_ITS ---
Test Reason : abd pain Blood Pressure : */* mmHG Vent. Rate : 107 BPM Atrial Rate : 107 BPM P-R Int : 122 ms QRS Dur : 82 ms QT Int : 342 ms P-R-T Axes : 80 80 -35 degrees QTcB Int : [address] & T wave abnormality, consider inferior ischemia ST & T wave abnormality, consider anterior ischemia Abnormal ECG When compared with ECG of 21-Jul-2024 12:16, Vent. rate has increased by 42 bpm T wave inversion now evident in Anterior leads Referred By: Christine Lawrence Electronically Signed By: Leon Lu
[2025-07-20 11:18] LABS: MANUAL DIFF FLAG NO
[2025-07-20 11:20] LABS: Hematocrit 41.5 % (37.0-47.0); Hemoglobin 13.9 g/dl (12.0-16.0); Imm Gran Abs Auto 0.12 X10*3/uL (0.00-0.03); Imm Gran Pct Auto 0.6 % (0.0-0.4); Lymphocytes Absolute Auto 3.3 X10*3/uL (1.2-4.9); Mean Corpuscular HGB Conc 33.5 g/dl (31.0-35.0); Mean Corpuscular Hemoglobin 29.2 pg (27.0-33.0); Mean Corpuscular Volume 87.2 fL (80.0-98.0); NRBC Abs Auto 0.000 X10*3/uL (0.0-0.012); NRBC Pct Auto 0.0 /100WBC (0.0-0.2); Platelet Count 286 X10*3/uL (160-400); Red Blood Count 4.76 X10*6/uL (4.20-5.50); White Blood Count 20.0 X10*3/uL (4.8-10.8)
--- NOTE | 2025-07-20 11:34 | PC.NURSE ---
Patient presents to the ED from home with complaints of RLQ pain. Patient states she has had diarrhea for a couple days, no blood reported, but abdominal pain last night was so severe, she could not sleep. Patient denies any urinary symptoms/ N/V. Reports being unable to eat due to pain. 20g IV in right FA.
[2025-07-20 11:40] LABS: Alanine Aminotransferase 12 U/L (0-31); Albumin Level 4.5 g/dL (3.5-5.0); Alkaline Phosphatase 113 U/L (39-117); Anion Gap 13 (12-20); Aspartate Amino Transferase 24 U/L (5-31); Blood Urea Nitrogen 12 mg/dL (9-16); Calcium 10.0 mg/dL (8.4-10.2); Carbon Dioxide 25 mmol/L (22-29); Chloride 103 mmol/L (96-108); Creatinine Clr Calc Pharmacy 48.2; Estimated Glomerular Filt Rate > 60; Lipase 13 U/L (8-78); Magnesium 2.4 mg/dL (1.6-2.6); Potassium 4.3 mmol/L (3.3-5.1); Sodium 137 mmol/L (135-145); Total Protein 8.1 g/dL (6.5-8.0)
[2025-07-20 11:49] LABS: Troponin-I High Sensitivity 8.7 ng/L (<3.5-17.0)
[2025-07-20 12:10] LABS: Resp Syncy Virus RNA Qual PCR NEGATIVE (Negative); SARS COV2 PCR INHOUSE NEGATIVE (Negative)
[2025-07-20] MEDS: metroNIDAZOLE/NS 500 MG/100 ML PIGGYBACK 100 MG IV ×2 (12:49→20:38)
[2025-07-20] MEDS: iohexoL 350 MG/ML 100 ML INFUS..BTL IV (13:58)
--- OUTSIDE RECORDS SUMMARY | 2025-07-20 15:12 | XMS_ITS | Patient Health Record ---
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 [employer] Name Role Phone Velia RODRIGUEZ, Traci Mina Primary Care Provider Un available Black, Monica Unavailable [phone] Allergies Allergen (clinical drug ingredient) Drug/Non Drug [...] W/U Status Risk Notes Problem Verruca plantaris (48598816) Verruca Plantaris (078.19) Active confirmed Problem Onychomycosis (099063943) Onychomycosis (110.1) Active confirmed Problem Pain in limb (63555017) Pain in Limb (729.5) Active confirmed Plan Of Treatment Pending Test Test Name Order Date [id number] NAIL, 6 OR MORE 11/05/2012 [id number] NAIL, 6 OR MORE 02/09/2013 [id number] NAIL, 6 OR MORE 05/11/2013 [id number] Destruction, 1-14 11/05/2012 Insurance Providers Payer Name Payer Address Payer Phone Subscriber Number Group Number Insured Name Patient Relationship to Insured Coverage Start Date Coverage End Date [facility] [address] [place] [address] [id number] Carlene Gannon Self - patient is the insured Medical (General) History Medical History History ICD Code angina hyperlipidemia heart disease chicken pox measles mumps vascular grafts Surgical History Surgery Date(Month/Year) bladder surgery heart catheter angioplasty Hospitalization History Reason Date(Month/Year) [place], 3 days, medication check, heart enzymes 04/2013
--- NOTE | 2025-07-20 17:04 | HO.NURTONUR ---
Patient is a 75 year old female who presents from home with RLQ pain that has been ongoing for 2 days. Reports having diarrhea x2 days, no N/V. Denies any blood in the stool. CTA done here stating Differential diagnostic considerations include focal colitis, neoplasm, ischemia, and typhlitis in the appropriate clinical setting. Clinical correlation is recommended. Colonoscopy should be considered. Patient is aox4, up independent to bathroom. VSS on RA. 20G IV in R FA.
--- NOTE | 2025-07-20 17:38 | P.HPHOSP_ITS ---
History of Present Illness Date of Service: 07/20/25 Chief Complaint: abdominal pain 75/F with history of hyperlipidemia, carotid stenosis, CAD, and coronary artery bypass grafting (two-vessel, 01/29/2024), as well as postoperative atrial fibrillation, presents with right lower quadrant abdominal pain for several days. Pain was preceded by diarrhea (no blood in stool). She reports dry heaves but no vomiting and no fever. She has had poor oral intake but is able to tolerate liquids. Imaging: CT shows marked wall thickening of the cecum and proximal ascending colon, with possible mild involvement of the terminal ileum. Prominence of the appendix is thought to be secondary to the cecal inflammatory process. Labs: WBC: 20K CRP: 8.64 Consults: Evaluated by general surgery, who are not convinced of appendicitis and favor a diagnosis of colitis. ED Treatment: IV fluids, ceftriaxone, and Flagyl. Review of Systems 2 Review of Systems: Gen: no fever Resp: no sob, no cough CV: no chest, no MONGE, no leg edema GI: No n/v, + abd pain Neuro: No confusion [facility] Medical History History of CVA (cerebrovascular accident) History of iron deficiency anemia History of adenomatous polyp of colon History of right inguinal hernia Abdominal mass, right lower quadrant Osteopenia of left femoral neck Recurrent major depression in partial remission H. pylori infection Hx of carotid stenosis Hyperlipidemia CAD (coronary artery disease) Dyslipidemia Family History Paternal Grandfather Stomach cancer Mother CAD (coronary artery disease) Brother No problems noted. Brother No problems noted. Brother No problems noted. Brother No problems noted. Sister No problems noted. Son No problems noted. Son No problems noted. Daughter No problems noted. Surgical History History of right inguinal hernia repair (07/27/24) Status post aorto-coronary artery bypass graft S/P CABG x 2 History of dental surgery Hx of colonoscopy Status post cardiac catheterization Social History Household Members: Family Housing: House Are you a primary hearing care professional to a significant other at home: No Do you presently have visiting nurse or other home services: No Alcohol intake: current Alcohol intake frequency: holidays/special occasions only Alcohol type: wine Comment: aware of trip hazard Patient Tobacco Use Status: Former Tobacco user Tobacco use type: Cigarette e-Cigarette/Vaping Use: Never Used Advance Directives: Yes Advance Directives Information Provided: Yes Advance Directives on File: No Current occupational status: retired Cognitive needs: No Hearing needs: No Vision needs: Yes Meds Allergies Allergy/AdvReac Type Severity Reaction Status Date / Time Penicillins Allergy Intermediate HIVES Verified 07/20/25 10:58 Home Medications ?Medication ?Instructions ?Recorded ?Confirmed ?Last Taken ?Type aspirin 81 mg tablet,delayed 81 mg PO DAILY 09/13/20 0 01/20/25 10/22/20 08:00 History release (Adult Low Dose Aspirin) Physical Exam 2 Vital Signs and Narrative: Vital Signs: Last Vital Signs Temp 98.3 F 07/20/25 13:25 Pulse 87 07/20/25 14:36 Resp 18 07/20/25 14:02 BP 118/43 L 07/20/25 14:36 Pulse Ox 96 07/20/25 14:02 O2 Del Method Room Air 07/20/25 14:02 BMI result Body Mass Index 21.6 Const: Other: General: AO X 3, no acute distress Resp: CTA bilateral CVS: S1,S2,RRR GI: +BS, RLQ tenderness, no distention, + bowel sound Skin: No rash Neuro: motor grossly intact Psych: appropriate affect Results Labs 07/20/25 11:10 07/20/25 11:10 Labs: Laboratory Results - last 24 hr 07/20/25 07/20/25 11:10 12:29 MCV 87.2 MCH 29.2 MCHC 33.5 RDW 16.4 H Plt Count 286 MPV 11.2 Immature Gran % (Auto) 0.6 H Neut % (Auto) 77.1 H Lymph % (Auto) 16.3 L [place] % (Auto) 4.8 Eos % (Auto) 0.8 Baso % (Auto) 0.4 Lymph # (Auto) 3.3 [place] # (Auto) 1.0 Eos # (Auto) 0.2 Baso # (Auto) 0.1 Abs Immat Gran (auto) 0.12 H Absolute Neuts (auto) 15.5 H Absolute Nucleated RBC 0.000 Nucleated RBC % (auto) 0.0 Anion Gap 13 Estim Creat Clear Calc 48.2 Estimated GFR > 60 Random Glucose 114 Lactic Acid 1.2 Calcium 10.0 Magnesium 2.4 Total Bilirubin 0.3 Direct Bilirubin 0.2 AST 24 ALT 12 Alkaline Phosphatase 113 Troponin I High Sens 8.7 C-Reactive Protein 8.63 H Total Protein 8.1 H Albumin 4.5 Lipase 13 Influenza Type A (PCR) NEGATIVE Influenza Type B (PCR) NEGATIVE RSV RNA Qual (PCR) NEGATIVE SARS-CoV-2 RNA (RT-PCR) NEGATIVE Imaging Radiologist's Impressions: Impressions Abdomen/Pelvis CT 07/20/25 13:53 IMPRESSION: Marked wall thickening of the cecum and proximal ascending colon with possible mild involvement of the terminal ileum. Prominence of the appendix is felt to be secondary to the cecal inflammatory process. Differential diagnostic considerations include focal colitis, neoplasm, ischemia, and typhlitis in the appropriate clinical setting. Clinical correlation is recommended. Colonoscopy should be considered. Electronically signed by: Hardik Ledesma MD 07/20/2025 02:53 PM [facility] Assessment and Plan (1) Colitis: Status: Acute (2) Sepsis: Status: Acute Plan 75/F with hyperlipidemia, carotid stenosis, CAD, coronary artery bypass grafting two-vessel 01/29/2024, postop AFib presents with RLLQ abdominal pain for several days, preceded by diarrhea, no blood in stool, has had dry heaves but no vomiting and no fever. She has sepsis d/t Colitis on CT scan Sepsis d/t Colitis, inflmaed appendice believed to be secondary continue Flagy and Ceftriaxone started 07/20 Seen by surgery, no indication for surgery GI eval, likely will need colonoscopy once reovered Morphine for pain CAD, HLD, HTN resume home meds DVT prophylaxis: Lovenox, compression device Full code Admission for at least 2 midnights d/t sepsis d/t colitis at risk perforated viscus if not treated agresively with IV antibiotics. Quality Stroke Does the patient have a stroke diagnosis?: No VTE Prior VTE?: No VTE Risk Level:: Medical - moderate - high VTE Device Contraindication: N/A - Device Ordered VTE Drug Contraindication: N/A - Med Ordered
[2025-07-20 18:04] LABS: Appearance Urine Clear; Glucose Urine UA Negative (Negative); PH 5.5 (5.0-9.0); Specific Gravity - Urine >= 1.030 (1.005-1.025); UMIC TRIGGER UACC YES
[2025-07-20] MEDS: Lactated Ringers 1,000 ML 100 ML IVCONT (18:12)
[2025-07-20 18:17] LABS: UACC Culture Trigger YES
--- NOTE | 2025-07-20 19:09 | PHA.MEDREC ---
Addendum entered by Daryn Shelton vicky 07/20/25 19:20: Med rec reviewed Original Note: Pharmacy Consult ? Medication Reconciliation Pharmacy has completed the medication reconciliation. Spoke with pt and she confirmed her medications. pt taking Bempedoic 180mg tabs once daily; if needed can have someone bring in this med in Am (07/20).
--- NOTE | 2025-07-20 20:43 | PM.CNGS ---
History of Present Illness Consult details Consult date: 07/20/25 Requesting physician: Radha Parry Narrative: the patient is a 75-year-old female with past history of aortic stenosis coronary artery disease status post CABG in 2023 who was complaining of several days of diarrhea not sure if there was blood in her stools. Has been eating outside food but not sure if anything was particularly bad. Her family who ate some of the foods with her have been fine. She comes in today because she was having increased right lower quadrant abdominal pain from yesterday into today and feeling quite sick. She was concerned that this could be appendicitis due to the location. As a result here in the emergency room workup was carried out which revealed white count elevated at [address] scan of her abdomen and pelvis showing moderate thickening and inflammatory changes of the cecum ascending colon and maybe some of the terminal ileum. The appendix has a little more prominent but not consistent with acute appendicitis on imaging. She has never had issues like this before. She denies any colon cancer issues in her family or inflammatory bowel disease. She has had regular colonoscopies without any specific findings Of concern Patient did have a right inguinal hernia repaired by Dr. Dennis a few years ago Review of Systems Review of Systems: Yes all other systems are reviewed and are negative [facility] Past Medical History Medical History History of CVA (cerebrovascular accident) History of iron deficiency anemia History of adenomatous polyp of colon History of right inguinal hernia Abdominal mass, right lower quadrant Osteopenia of left femoral neck Recurrent major depression in partial remission H. pylori infection Hx of carotid stenosis Hyperlipidemia CAD (coronary artery disease) Dyslipidemia Family History Family History Paternal Grandfather Stomach cancer Mother CAD (coronary artery disease) Brother No problems noted. Brother No problems noted. Brother No problems noted. Brother No problems noted. Sister No problems noted. Son No problems noted. Son No problems noted. Daughter No problems noted. Surgical History Surgical History History of right inguinal hernia repair (07/27/24) Status post aorto-coronary artery bypass graft S/P CABG x 2 History of dental surgery Hx of colonoscopy Status post cardiac catheterization Social History Social History Household Members: Family Housing: House Are you a primary care transport nurse to a significant other at home: No Do you presently have visiting nurse or other home services: No Alcohol intake: current Alcohol intake frequency: holidays/special occasions only Alcohol type: wine Comment: aware of trip hazard Patient Tobacco Use Status: Former Tobacco user Tobacco use type: Cigarette e-Cigarette/Vaping Use: Never Used Advance Directives: Yes Advance Directives Information Provided: Yes Advance Directives on File: No Current occupational status: retired Cognitive needs: No Hearing needs: No Vision needs: Yes Meds Allergies Allergy/AdvReac Type Severity Reaction Status Date / Time Penicillins Allergy Intermediate HIVES Verified 07/20/25 10:58 Active Medications: Current Medications Acetaminophen (Acetaminophen 325 Mg Tablet) 650 mg PO Q6H PRN PRN Reason: Pain, Mild 1-3,fever,headache Calcium Carbonate (Calcium Carbonate 750 Mg Tab.Chew) 750 mg PO Q4H PRN PRN Reason: Heartburn Enoxaparin Sodium (Enoxaparin Sodium 40 Mg/0.4 Ml Syringe) 40 mg SUBCUT Q24H [facility] Last Admin: 07/20/25 18:13 Dose: 40 mg Lactated Ringer's (Lr) 1,000 mls @ 100 mls/hr IVCONT .Q10H [facility] Last Admin: 07/20/25 18:12 Dose: 100 mls/hr Ceftriaxone Sodium 2 gm/ (Sodium Chloride) 50 mls @ 100 mls/hr IV Q24H [facility] Metronidazole (Flagyl) 500 mg in 100 mls @ 100 mls/hr IV Q8H [facility] Last Admin: 07/20/25 20:38 Dose: 100 mls/hr Magnesium Hydroxide (Milk Of Magnesia 30 Ml Oral.Susp) 30 ml PO DAILY PRN PRN Reason: Constipation Melatonin (Melatonin 3 Mg Tablet) 6 mg PO BEDTIME PRN PRN Reason: Insomnia Morphine Sulfate (Morphine Sulfate 4 Mg/Ml Cartridge) 2 mg IVPUSH Q4H PRN; Protocol PRN Reason: Pain, Severe (Pain Scale 7-10) Last Admin: 07/20/25 20:37 Dose: 2 mg Sodium Chloride (0.9 % Sodium Chloride Flush 3 Ml Syringe) 3 ml IVFLUSH QSHIFT [facility] Home Medications ?Medication ?Instructions ?Recorded ?Confirmed ?Last Taken ?Type aspirin 81 mg tablet,delayed 81 mg PO DAILY 09/13/20 07/20/25 07/19/25 History release (Adult Low Dose Aspirin) bempedoic acid 180 mg tablet 180 mg PO BEDTIME 07/20/25 07/20/25 07/19/25 History (Nexletol) rpzzclpx-znsx-tidi 8 mg-folic 400 1 tab PO DAILY 07/20/25 07/20/25 07/19/25 History mcg-K 50 mcg-lutein 300 mcg tablet (Centrum Silver Women) Physical Exam Vital Signs: Vital Signs: Last Vital Signs Temp 98.3 F 07/20/25 19:18 Pulse 78 07/20/25 19:18 Resp 20 07/20/25 19:18 BP 129/47 L 07/20/25 19:18 Pulse Ox 95 07/20/25 19:18 O2 Del Method Room Air 07/20/25 19:18 BMI result Body Mass Index 21.6 Const: General: cooperative, healthy appearing and acute distress mild Orientation/consciousness: patient oriented x3 Resp: Effort & Inspection: normal respiratory effort GI: Other: abdomen is soft nondistended she is tender in the right lower quadrant and right side with some guarding no rebound no peritoneal signs. Skin: General skin exam: no rashes or lesions noted Neuro: General: patient oriented x3 Extrem: General: Yes normal to inspection Psych: Attitude: cooperative Thought process: Normal thought process present Thought content: Normal thought content present Insight: Good insight present (Psych) Judgement: Good judgement present (Psych) Results Labs 07/20/25 11:10 07/20/25 11:10 Labs: Abnormal lab results 07/20/25 07/20/25 Range/Units 11:10 17:55 WBC 20.0 H (4.8-10.8) X10*3/uL RDW 16.4 H (11.0-16.0) % Immature Gran % (Auto) 0.6 H (0.0-0.4) % Neut % (Auto) 77.1 H (45-73) % Lymph % (Auto) 16.3 L (20-40) % Abs Immat Gran (auto) 0.12 H (0.00-0.03) X10*3/uL Absolute Neuts (auto) 15.5 H (2.0-8.3) x10*3/uL C-Reactive Protein 8.63 H (< or = 0.50) mg/dL Total Protein 8.1 H (6.5-8.0) g/dL Ur Specific [place] >= 1.030 H (1.005-1.025) Urine Blood Trace H (Negative) Ur Leukocyte Esterase Moderate (2+) H (Negative) Urine WBC >50 H (0-5) /HPF Short CBC 07/20/25 Range/Units 11:10 WBC 20.0 H (4.8-10.8) X10*3/uL Hgb 13.9 (12.0-16.0) g/dl Hct 41.5 (37.0-47.0) % Plt Count 286 (160-400) X10*3/uL BMP 07/20/25 11:10 Sodium 137 Potassium 4.3 Chloride 103 Carbon Dioxide 25 BUN 12 Creatinine 0.87 Calcium 10.0 Liver Function 07/20/25 Range/Units 11:10 Total Bilirubin 0.3 (0.0-1.0) mg/dL Direct Bilirubin 0.2 (0.0-0.5) mg/dL AST 24 (5-31) U/L ALT 12 (0-31) U/L Alkaline Phosphatase 113 (39-117) U/L Albumin 4.5 (3.5-5.0) g/dL Urine 07/20/25 Range/Units 17:55 Urine Color Yellow Urine Appearance Clear Urine pH 5.5 (5.0-9.0) Ur Specific [place] >= 1.030 H (1.005-1.025) Urine Protein Negative (Neg-Trace) mg/dL Urine Glucose (UA) Negative (Negative) mg/dL All other labs normal. Imaging Abdomen CT scan report/results: report reviewed and image reviewed CT scan - pelvis: report reviewed and image reviewed Additional studies: Signed Patient: Carlene Gannon MR#: [id number] : 1950 Acct:[id number] Age/Sex: 75 / F ADM Date: 07/20/25 Loc: HO.ED Attending Dr: Ordering Physician: Radha Parry Date of Service: 07/20/25 Procedure(s): CT abdomen pelvis w IV con Accession Number(s): [id number] cc: Traci Gunn MD; Radha Parry~ Report Number: [id number]: Total DLP = 365.00 mGy-cm Reason for Exam: RLQ pain EXAMINATION: CT ABDOMEN PELVIS WITH IV CONTRAST HISTORY: RLQ pain COMPARISON: There are no prior studies for available comparison. TECHNIQUE: CT scan of the abdomen and pelvis was performed following administration of 85 mL Omnipaque 350 using standard departmental protocol. Coronal and sagittal reformatted images were generated and reviewed. Oral contrast material was not administered at the request of the referring physician. This CT exam was performed with one or more of the following dose reduction techniques: automated exposure control, adjustment of the mA and/or kV according to patient size, use of iterative reconstruction technique. DLP: 365 mGy-cm FINDINGS: LOWER CHEST: The visualized lung bases are clear. There is no pleural effusion. CARDIOVASCULATURE: The heart is normal in size. There is no pericardial effusion. LIVER: The liver is normal in size and contour. No liver mass is identified. The hepatic and portal veins are patent. GALLBLADDER / BILE DUCTS: The gallbladder is unremarkable. There is no intra or extrahepatic biliary ductal dilatation. SPLEEN: The spleen is normal in size. No focal splenic lesion is identified. PANCREAS: The pancreas is unremarkable in appearance. ADRENAL GLANDS: Within normal limits. KIDNEYS/RETROPERITONEUM: No renal calculi are identified. There is no hydronephrosis. No renal masses are identified. LYMPH NODES: No abdominal or pelvic lymphadenopathy. VASCULATURE: The abdominal aorta demonstrates atherosclerotic calcification, but is normal in caliber. MESENTERY/PERITONEUM: No free fluid. No masses. There is no free intraperitoneal gas. STOMACH: There is a large hiatal hernia. SMALL BOWEL: The small bowel is normal in caliber. COLON: There is marked wall thickening of the cecum and proximal ascending colon. There may be associated thickening of the terminal ileum. There is diverticulosis of the sigmoid colon, without evidence of diverticulitis. APPENDIX: The appendix is mildly dilated measuring up 7 mm in diameter. This is felt to be secondary to the adjacent cecal inflammatory process. URINARY BLADDER/PELVIC ORGANS: The urinary bladder is unremarkable. The uterus is unremarkable. BONES / SOFT TISSUES: No suspicious bony or soft tissue abnormalities. CT/CT abdomen pelvis w IV con IMPRESSION: Marked wall thickening of the cecum and proximal ascending colon with possible mild involvement of the terminal ileum. Prominence of the appendix is felt to be secondary to the cecal inflammatory process. Differential diagnostic considerations include focal colitis, neoplasm, ischemia, and typhlitis in the appropriate clinical setting. Clinical correlation is recommended. Colonoscopy should be considered. Electronically signed by: Hardik Ledesma MD 07/20/2025 02:53 PM EST Dictated By: Hardik Ledesma MD Signed By: <Electronically signed by Hardik Ledesma MD in OV> 07/20/25 1453 DD/ 1353 TD/TT: 07/20/25 1437 Special Agent: Assessment and Plan (1) Colitis: Status: Acute Plan 75-year-old female with right lower quadrant pain elevated white count CT scan showing thickened inflamed cecum colon mainly consistent with colitis. Appendix is probably secondarily involved this does not appear to be appendicitis. At this point plan will be to admit under the medical team IV hydration clear liquids IV antibiotics and eventually GI consultation for colonoscopy. We will follow along if patient gets worse and appendicitis as more of a concern we will consider potentially repeating CAT scan and surgical intervention is warranted then. Procedures Date of Service Date of Service: 07/20/25
--- NOTE | 2025-07-20 21:54 | PC.NURSE ---
Pt awake and alert, resting in bed at this time. Lower abd pain improved following PRN Morphine provided. Denies nausea/emesis. LR continues to infuse. Remains NPO. Awaiting bed assignment. Call fernandez within reach
--- NOTE | 2025-07-20 22:47 | HO.NURTONUR ---
75 year old female presented to ED for concerns of lower abd pain with decrease in PO intake and diarrhea x2 days. Pt awake and alert resting comfortably, pain controlled with PRN Morphine. Denies nausea/emesis. Denies diarrhea. Plan for admit for IV antibiotics, IVF and bowel rest. Currently NPO with LR running. Ambulates independently per patient, has not gotten OOB with this RN.
[2025-07-21 03:32] VITALS: BP 112/55; PULSE 63; RESP 16; TEMP 36; O2SAT 93
[2025-07-21] MEDS: Lactated Ringers 1,000 ML 100 ML IVCONT ×2 (05:09→19:32)
[2025-07-21] MEDS: metroNIDAZOLE/NS 500 MG/100 ML PIGGYBACK 100 MG IV ×3 (05:09→20:51)
[2025-07-21 06:07] LABS: Hematocrit 36.9 % (37.0-47.0); Hemoglobin 11.9 g/dl (12.0-16.0); Mean Corpuscular HGB Conc 32.2 g/dl (31.0-35.0); Mean Corpuscular Hemoglobin 28.7 pg (27.0-33.0); Mean Corpuscular Volume 88.9 fL (80.0-98.0); NRBC Abs Auto 0.000 X10*3/uL (0.0-0.012); NRBC Pct Auto 0.0 /100WBC (0.0-0.2); Platelet Count 201 X10*3/uL (160-400); Red Blood Count 4.15 X10*6/uL (4.20-5.50); White Blood Count 14.7 X10*3/uL (4.8-10.8)
[2025-07-21 06:41] LABS: Anion Gap 14 (12-20); Blood Urea Nitrogen 9 mg/dL (9-16); Calcium 8.8 mg/dL (8.4-10.2); Carbon Dioxide 18 mmol/L (22-29); Chloride 109 mmol/L (96-108); Creatinine Clr Calc Pharmacy 56.7; Estimated Glomerular Filt Rate > 60; Potassium 4.0 mmol/L (3.3-5.1); Sodium 137 mmol/L (135-145)
[2025-07-21 07:01] VITALS: BP 132/59; PULSE 83; RESP 16; TEMP 36.6; O2SAT 93
--- NOTE | 2025-07-21 08:11 | PM.PNGS ---
Subjective Subjective Date of Service: 07/21/25 <Marbella Maxwell PA-C - Last Filed: 07/21/25 08:17> 07/21/25 <Marcos Dennis MD - Last Filed: 07/21/25 08:31> Interval history: Feels improved this morning. Less abdominal pain. No further diarrhea. Denies nausea. Feels hungry. <Marbella Maxwell PA-C - Last Filed: 07/21/25 08:17> Physical Exam Vital Signs: Vital Signs: Last Vital Signs Temp 98 F 07/21/25 07:01 Pulse 83 07/21/25 07:01 Resp 16 07/21/25 07:01 BP 132/59 L 07/21/25 07:01 Pulse Ox 93 07/21/25 07:01 O2 Del Method Room Air 07/21/25 07:01 BMI result Body Mass Index 23.3 <Marbella Maxwell PA-C - Last Filed: 07/21/25 08:17> Const: General: comfortable, no acute distress and alert <Marbella Maxwell PA-C - Last Filed: 07/21/25 08:17> Orientation/consciousness: patient oriented x3 <Marbella Maxwell PA-C - Last Filed: 07/21/25 08:17> Resp: Effort & Inspection: normal respiratory effort <Marbella Maxwell PA-C - Last Filed: 07/21/25 08:17> GI: Other: soft right sided moderate tenderness in the mid abdomen, no rebound or rigidity, she does have a weakly positive rovsing nondistended <Marbella Maxwell PA-C - Last Filed: 07/21/25 08:17> Palpation (GI): not rigid <Marbella Maxwell PA-C - Last Filed: 07/21/25 08:17> Percussion: Yes normal to percussion <BENITO Cardenas Last Filed: 07/21/25 08:17> Skin: General skin exam: no rashes or lesions noted <Marbella Maxwell PA-C - Last Filed: 07/21/25 08:17> Neuro: General: patient oriented x3 and moves all extremities <Marbella Maxwell PA-C - Last Filed: 07/21/25 08:17> Objective Data Active Medications Acetaminophen (Acetaminophen 325 Mg Tablet) 650 mg PO Q6H PRN PRN Reason: Pain, Mild 1-3,fever,headache Calcium Carbonate (Calcium Carbonate 750 Mg Tab.Chew) 750 mg PO Q4H PRN PRN Reason: Heartburn Enoxaparin Sodium (Enoxaparin Sodium 40 Mg/0.4 Ml Syringe) 40 mg SUBCUT Q24H [facility] Last Admin: 07/20/25 18:13 Dose: 40 mg Documented By: TALAT Lactated Ringer's (Lr) 1,000 mls @ 100 mls/hr IVCONT .Q10H [facility] Last Admin: 07/21/25 05:09 Dose: 100 mls/hr Documented By: MARLEY Ceftriaxone Sodium 2 gm/ (Sodium Chloride) 50 mls @ 100 mls/hr IV Q24H [facility] Metronidazole (Flagyl) 500 mg in 100 mls @ 100 mls/hr IV Q8H [facility] Last Infusion: 07/21/25 06:13 Dose: Infused Documented By: MARLEY Magnesium Hydroxide (Milk Of Magnesia 30 Ml Oral.Susp) 30 ml PO DAILY PRN PRN Reason: Constipation Melatonin (Melatonin 3 Mg Tablet) 6 mg PO BEDTIME PRN PRN Reason: Insomnia Morphine Sulfate (Morphine Sulfate 4 Mg/Ml Cartridge) 2 mg IVPUSH Q4H PRN; Protocol PRN Reason: Pain, Severe (Pain Scale 7-10) Last Admin: 07/20/25 20:37 Dose: 2 mg Documented By: LOU Sodium Chloride (0.9 % Sodium Chloride Flush 3 Ml Syringe) 3 ml IVFLUSH QSHIFT [facility] Last Admin: 07/21/25 08:10 Dose: Not Given Documented By: RUTH Non-Admin Reason: IV Running <Marbella Maxwell PA-C - Last Filed: 07/21/25 08:17> Labs CBC & Chem 7: 07/21/25 05:25 07/21/25 05:25 <Marbella Maxwell PA-C - Last Filed: 07/21/25 08:17> Labs: Laboratory Results - last 24 hr 07/20/25 07/20/25 07/20/25 11:10 12:29 17:55 MCV 87.2 MCH 29.2 MCHC 33.5 RDW 16.4 H Plt Count 286 MPV 11.2 Immature Gran % (Auto) 0.6 H Neut % (Auto) 77.1 H Lymph % (Auto) 16.3 L [place] % (Auto) 4.8 Eos % (Auto) 0.8 Baso % (Auto) 0.4 Lymph # (Auto) 3.3 [place] # (Auto) 1.0 Eos # (Auto) 0.2 Baso # (Auto) 0.1 Abs Immat Gran (auto) 0.12 H Absolute Neuts (auto) 15.5 H Absolute Nucleated RBC 0.000 Nucleated RBC % (auto) 0.0 Anion Gap 13 Estim Creat Clear Calc 48.2 Estimated GFR > 60 Random Glucose 114 Lactic Acid 1.2 Calcium 10.0 Magnesium 2.4 Total Bilirubin 0.3 Direct Bilirubin 0.2 AST 24 ALT 12 Alkaline Phosphatase 113 Troponin I High Sens 8.7 C-Reactive Protein 8.63 H Total Protein 8.1 H Albumin 4.5 Lipase 13 Urine Color Yellow Urine Appearance Clear Urine pH 5.5 Ur Specific [place] >= 1.030 H Urine Protein Negative Urine Glucose (UA) Negative Urine Ketones Negative Urine Blood Trace H Urine Nitrite Negative Ur Leukocyte Esterase Moderate (2+) H Urine RBC 0-2 Urine WBC >50 H Ur Squamous Epith Cells 0-2 Urine Bacteria None Seen Hyaline Casts 0-2 Influenza Type A (PCR) NEGATIVE Influenza Type B (PCR) NEGATIVE RSV RNA Qual (PCR) NEGATIVE SARS-CoV-2 RNA (RT-PCR) NEGATIVE 07/21/25 05:25 MCV 88.9 MCH 28.7 MCHC 32.2 RDW 16.7 H Plt Count 201 D MPV 11.4 Immature Gran % (Auto) Neut % (Auto) Lymph % (Auto) [place] % (Auto) Eos % (Auto) Baso % (Auto) Lymph # (Auto) [place] # (Auto) Eos # (Auto) Baso # (Auto) Abs Immat Gran (auto) Absolute Neuts (auto) Absolute Nucleated RBC 0.000 Nucleated RBC % (auto) 0.0 Anion Gap 14 Estim Creat Clear Calc 56.7 Estimated GFR > 60 Random Glucose 70 Lactic Acid Calcium 8.8 D Magnesium Total Bilirubin Direct Bilirubin AST ALT Alkaline Phosphatase Troponin I High Sens C-Reactive Protein Total Protein Albumin Lipase Urine Color Urine Appearance Urine pH Ur Specific [place] Urine Protein Urine Glucose (UA) Urine Ketones Urine Blood Urine Nitrite Ur Leukocyte Esterase Urine RBC Urine WBC Ur Squamous Epith Cells Urine Bacteria Hyaline Casts Influenza Type A (PCR) Influenza Type B (PCR) RSV RNA Qual (PCR) SARS-CoV-2 RNA (RT-PCR) <Marbella Maxwell PA-C - Last Filed: 07/21/25 08:17> Procedures Date of Service Date of Service: 07/21/25 <Marbella Maxwell PA-C - Last Filed: 07/21/25 08:17> 07/21/25 <Marcos Dennis MD - Last Filed: 07/21/25 08:31> Progress Note: A&P Assessment and plan (1) Colitis: Status: Acute <Marbella Maxwell PA-C - Last Filed: 07/21/25 08:17> Assessment and Plan: CT scan on admission shows wall thickening of the right colon with mild thickening of the appendix, likely secondarily thickened due to the colitis. She feels improved this morning with less abd pain. Abd benign without peritoneal signs. Cont supportive measures for now. GI consult. If no plans for colonoscopy today, can trial clear liquids. <Marbella Maxwell PA-C - Last Filed: 07/21/25 08:17> CT scan on admission shows wall thickening of the right colon with mild thickening of the appendix, likely secondarily thickened due to the colitis. She feels improved this morning with less abd pain. Abd benign without peritoneal signs. Cont supportive measures for now. GI consult. If no plans for colonoscopy today, can trial clear liquids. Patient seen and examined independently and I agree with the above assessment. She reports pain mainly in the RLQ with a previous history of diarrhea. She reports going out to eat prior to the onset of pain, ? food borne illness. Pain is improved this morning. CT AP reviewed, long appendix in retrocecal location, thickened cecum suggestive of colitis. Agree with the above plan. <Marcos Dennis MD - Last Filed: 07/21/25 08:31> Time Spent With Patient Time: Total time managing care of this patient today ____ minutes. <Marbella Maxwell PA-C - Last Filed: 07/21/25 08:17> Quality Stroke Does the patient have a stroke diagnosis?: No <Marbella Maxwell PA-C - Last Filed: 07/21/25 08:17> VTE Prior VTE?: No <Marbella Maxwell PA-C - Last Filed: 07/21/25 08:17> VTE Risk Level:: Medical - moderate - high <Marbella Maxwell PA-C - Last Filed: 07/21/25 08:17> VTE Device Contraindication: N/A - Device Ordered <Marbella Maxwell PA-C - Last Filed: 07/21/25 08:17> VTE Drug Contraindication: N/A - Med Ordered <Marbella Maxwell PA-C - Last Filed: 07/21/25 08:17>
[2025-07-21] MEDS: Aspirin Enteric Coated 81 MG TABLET.DR PO (08:36)
--- NOTE | 2025-07-21 09:41 | P.CNGI_ITS ---
History of Present Illness Data of Consult Service Date: 07/21/25 [facility] Care Provider: Traci Gunn MD HPI Reason for consult: Colitis 75 y.o F with PMH of CAD s/p CABG 2023, moderate , HLD who presented to the hospital for abd pain. Pt reports that saturday night she developed generalized abd discomfort with malaise and nausea. This was assoc with a few episodes of loose BMs that resolved within half a day. Did not feel like eating anything all day Saturday. Initially attributed this to a GI bug but by saturday when this localized to RLQ and became sharper she called her doctor who advised her to come to ER. No fevers or chills. She does report eating food from outside saturday. Vitals stable. Initial WBC count 20. LFTs and chem [address] images independently reviewed with marked thickening of appendix and cecum but no periappendiceal fluid or appendicolith noted. Pt feels better compared to yest morning. Remains on IV hydration and IV ceftriaxone and metronidazole. Review of Systems 2 Review of Systems: Yes all other systems are reviewed and are negative [facility] Past Medical History Medical History History of CVA (cerebrovascular accident) History of iron deficiency anemia History of adenomatous polyp of colon History of right inguinal hernia Abdominal mass, right lower quadrant Osteopenia of left femoral neck Recurrent major depression in partial remission H. pylori infection Hx of carotid stenosis Hyperlipidemia CAD (coronary artery disease) Dyslipidemia Family History Family History Paternal Grandfather Stomach cancer Mother CAD (coronary artery disease) Brother No problems noted. Brother No problems noted. Brother No problems noted. Brother No problems noted. Sister No problems noted. Son No problems noted. Son No problems noted. Daughter No problems noted. Surgical History Surgical History History of right inguinal hernia repair (07/27/24) Status post aorto-coronary artery bypass graft S/P CABG x 2 History of dental surgery Hx of colonoscopy Status post cardiac catheterization Social History Social History Household Members: Children Housing: House Are you a primary caregivers homecare to a significant other at home: No Do you presently have visiting nurse or other home services: No Alcohol intake: current Alcohol intake frequency: does not drink Alcohol type: wine Comment: aware of trip hazard Patient Tobacco Use Status: Former Tobacco user Tobacco use type: Cigarette e-Cigarette/Vaping Use: Never Used Advance Directives Date on File: 07/20/25 service: No Current occupational status: retired Cognitive needs: No Hearing needs: No Vision needs: Yes Meds Allergies Allergy/AdvReac Type Severity Reaction Status Date / Time Penicillins Allergy Intermediate HIVES Verified 07/20/25 10:58 Active Medications: Current Medications Acetaminophen (Acetaminophen 325 Mg Tablet) 650 mg PO Q6H PRN PRN Reason: Pain, Mild 1-3,fever,headache Aspirin (Aspirin Enteric Coated 81 Mg Tablet.Dr) 81 mg PO DAILY [facility] Last Admin: 07/21/25 08:36 Dose: 81 mg Atorvastatin Calcium (Atorvastatin Calcium 80 Mg Tablet) 80 mg PO BEDTIME [facility] Calcium Carbonate (Calcium Carbonate 750 Mg Tab.Chew) 750 mg PO Q4H PRN PRN Reason: Heartburn Ezetimibe (Ezetimibe 10 Mg Tablet) 10 mg PO DAILY [facility] Last Admin: 07/21/25 08:36 Dose: 10 mg Enoxaparin Sodium (Enoxaparin Sodium 40 Mg/0.4 Ml Syringe) 40 mg SUBCUT Q24H [facility] Last Admin: 07/20/25 18:13 Dose: 40 mg Lactated Ringer's (Lr) 1,000 mls @ 100 mls/hr IVCONT .Q10H [facility] Last Admin: 07/21/25 05:09 Dose: 100 mls/hr Ceftriaxone Sodium 2 gm/ (Sodium Chloride) 50 mls @ 100 mls/hr IV Q24H [facility] Last Admin: 07/21/25 09:23 Dose: 100 mls/hr Metronidazole (Flagyl) 500 mg in 100 mls @ 100 mls/hr IV Q8H [facility] Last Infusion: 07/21/25 06:13 Dose: Infused Magnesium Hydroxide (Milk Of Magnesia 30 Ml Oral.Susp) 30 ml PO DAILY PRN PRN Reason: Constipation Melatonin (Melatonin 3 Mg Tablet) 6 mg PO BEDTIME PRN PRN Reason: Insomnia Metoprolol Tartrate (Metoprolol Tartrate 50 Mg Tablet) 50 mg PO BID [facility]; Protocol Last Admin: 07/21/25 08:36 Dose: 50 mg Morphine Sulfate (Morphine Sulfate 4 Mg/Ml Cartridge) 2 mg IVPUSH Q4H PRN; Protocol PRN Reason: Pain, Severe (Pain Scale 7-10) Last Admin: 07/20/25 20:37 Dose: 2 mg Multivitamins/Vitamin C (Multivitamin Tablet) 1 tab PO DAILY [facility] Last Admin: 07/21/25 08:36 Dose: 1 tab Non-Formulary Medication (Bempedoic Acid [Nexletol]) 180 mg PO BEDTIME [facility] Sodium Chloride (0.9 % Sodium Chloride Flush 3 Ml Syringe) 3 ml IVFLUSH QSHIFT [facility] Last Admin: 07/21/25 08:10 Dose: Not Given Home Medications ?Medication ?Instructions ?Recorded ?Confirmed ?Last Taken ?Type aspirin 81 mg tablet,delayed 81 mg PO DAILY 09/13/20 1 09/20/24 07/19/25 History release (Adult Low Dose Aspirin) bempedoic acid 180 mg tablet 180 mg PO BEDTIME 5 07/20/25 07/19/25 History (Nexletol) [id number] 8 mg-folic 400 1 tab PO DAILY 07/2007/20/25 07/19/25 History mcg-K 50 mcg-lutein 300 mcg tablet (Centrum Silver Women) Physical Exam 2 Exam: Exam: Elderly female sternotomy scar abd soft, focally tender in RLQ with guarding, no rebound mild JUANCARLOS Vital Signs: Vital Signs: Last Vital Signs Temp 98 F 07/21/25 07:01 Pulse 83 07/21/25 07:01 Resp 16 07/21/25 07:01 BP 132/59 L 07/21/25 07:01 Pulse Ox 93 07/21/25 07:01 O2 Del Method Room Air 07/21/25 07:01 BMI result Body Mass Index 23.3 Results Labs 07/21/25 05:25 07/21/25 05:25 Labs: Short CBC 07/20/25 07/21/25 Range/Units 11:10 05:25 WBC 20.0 H 14.7 H (4.8-10.8) X10*3/uL Hgb 13.9 11.9 L (12.0-16.0) g/dl Hct 41.5 36.9 L (37.0-47.0) % Plt Count 286 201 D (160-400) X10*3/uL BMP 07/20/25 07/21/25 11:10 05:25 Sodium 137 137 Potassium 4.3 4.0 Chloride 103 109 H Carbon Dioxide 25 18 L BUN 12 9 Creatinine 0.87 0.74 Calcium 10.0 8.8 D Liver Function 07/20/25 Range/Units 11:10 Total Bilirubin 0.3 (0.0-1.0) mg/dL Direct Bilirubin 0.2 (0.0-0.5) mg/dL AST 24 (5-31) U/L ALT 12 (0-31) U/L Alkaline Phosphatase 113 (39-117) U/L Albumin 4.5 (3.5-5.0) g/dL Urine 07/20/25 Range/Units 17:55 Urine Color Yellow Urine Appearance Clear Urine pH 5.5 (5.0-9.0) Ur Specific [place] >= 1.030 H (1.005-1.025) Urine Protein Negative (Neg-Trace) mg/dL Urine Glucose (UA) Negative (Negative) mg/dL Assessment and Plan (1) Abdominal pain: Status: Acute (2) Colitis: Status: Acute (3) Appendicitis: Status: Acute Plan Currently being managed as infectious colitis, however to note pt's diarrhea resolved at home, i.e before Abx were administered. Other ddx include R sided ischemia, however clinically no hematochezia, or precipitating event. Lactate normal. Index presentation for IBD less likely given age and acute onset of sx. Sx progression from generalized abd pain to local RLQ with nausea and anorexia remain suspicious for acute appendicitis. Plan: - Agree with clear liquids - Cont IV fluids and Abx - Check LDH - Repeat CT abd/pel with contrast tmrw Thank you for allowing me to paricipate in her care. Please do not hesitate to reach out for any questions or concerns. Procedures Date of Service Date of Service: 07/21/25
--- NOTE | 2025-07-21 11:33 | HO.PM.IMPN ---
Subjective Subjective Date of Service: 07/21/25 Interval History: f/u on colitis she feels better, less pain, no n/v, feels hungry Review of Systems Gen: no fever Resp: no sob, no cough CV: no chest, no MONGE, no leg edema GI: No n/v, + abd pain Neuro: No confusion Physical Exam Vital Signs: Vital Signs: Last Vital Signs Temp 98 F 07/21/25 07:01 Pulse 83 07/21/25 07:01 Resp 16 07/21/25 07:01 BP 132/59 L 07/21/25 07:01 Pulse Ox 93 07/21/25 07:01 O2 Del Method Room Air 07/21/25 07:01 BMI result Body Mass Index 23.3 Const: General: cooperative, healthy appearing, comfortable, no acute distress, alert and acute distress mild Orientation/consciousness: patient oriented x3 Resp: Effort & Inspection: normal respiratory effort GI: Other: soft right sided moderate tenderness in the mid abdomen, no rebound or rigidity, she does have a weakly positive rovsing nondistended Palpation (GI): not rigid Percussion: Yes normal to percussion Skin: General skin exam: no rashes or lesions noted Neuro: General: patient oriented x3 and moves all extremities Extrem: General: Yes normal to inspection Psych: Attitude: cooperative Thought process: Normal thought process present Thought content: Normal thought content present Insight: Good insight present (Psych) Judgement: Good judgement present (Psych) Objective Data Active Medications Acetaminophen (Acetaminophen 325 Mg Tablet) 650 mg PO Q6H PRN PRN Reason: Pain, Mild 1-3,fever,headache Aspirin (Aspirin Enteric Coated 81 Mg Tablet.) 81 mg PO DAILY [facility] Last Admin: 07/21/25 08:36 Dose: 81 mg Documented By: RUTH Atorvastatin Calcium (Atorvastatin Calcium 80 Mg Tablet) 80 mg PO BEDTIME [facility] Calcium Carbonate (Calcium Carbonate 750 Mg Tab.Chew) 750 mg PO Q4H PRN PRN Reason: Heartburn Ezetimibe (Ezetimibe 10 Mg Tablet) 10 mg PO DAILY [facility] Last Admin: 07/21/25 08:36 Dose: 10 mg Documented By: RUTH Enoxaparin Sodium (Enoxaparin Sodium 40 Mg/0.4 Ml Syringe) 40 mg SUBCUT Q24H [facility] Last Admin: 07/20/25 18:13 Dose: 40 mg Documented By: TALAT Lactated Ringer's (Lr) 1,000 mls @ 100 mls/hr IVCONT .Q10H [facility] Last Admin: 07/21/25 05:09 Dose: 100 mls/hr Documented By: MARLEY Ceftriaxone Sodium 2 gm/ (Sodium Chloride) 50 mls @ 100 mls/hr IV Q24H [facility] Last Infusion: 07/21/25 09:53 Dose: Infused Documented By: RUTH Metronidazole (Flagyl) 500 mg in 100 mls @ 100 mls/hr IV Q8H [facility] Last Infusion: 07/21/25 06:13 Dose: Infused Documented By: MARLEY Magnesium Hydroxide (Milk Of Magnesia 30 Ml Oral.Susp) 30 ml PO DAILY PRN PRN Reason: Constipation Melatonin (Melatonin 3 Mg Tablet) 6 mg PO BEDTIME PRN PRN Reason: Insomnia Metoprolol Tartrate (Metoprolol Tartrate 50 Mg Tablet) 50 mg PO BID [facility]; Protocol Last Admin: 07/21/25 08:36 Dose: 50 mg Documented By: RUTH Morphine Sulfate (Morphine Sulfate 4 Mg/Ml Cartridge) 2 mg IVPUSH Q4H PRN; Protocol PRN Reason: Pain, Severe (Pain Scale 7-10) Last Admin: 07/20/25 20:37 Dose: 2 mg Documented By: LOU Multivitamins/Vitamin C (Multivitamin Tablet) 1 tab PO DAILY [facility] Last Admin: 07/21/25 08:36 Dose: 1 tab Documented By: RUTH Non-Formulary Medication (Bempedoic Acid [Nexletol]) 180 mg PO BEDTIME [facility] Sodium Chloride (0.9 % Sodium Chloride Flush 3 Ml Syringe) 3 ml IVFLUSH QSHIFT [facility] Last Admin: 07/21/25 08:10 Dose: Not Given Documented By: RUTH Non-Admin Reason: IV Running Labs 07/21/25 05:25 07/21/25 05:25 Labs: Laboratory Results - last 24 hr 07/20/25 07/20/25 07/20/25 11:10 12:29 17:55 MCV MCH MCHC RDW Plt Count MPV Absolute Nucleated RBC Nucleated RBC % (auto) Anion Gap 13 Estim Creat Clear Calc 48.2 Estimated GFR > 60 Random Glucose 114 Lactic Acid 1.2 Calcium 10.0 Magnesium 2.4 Total Bilirubin 0.3 Direct Bilirubin 0.2 AST 24 ALT 12 Alkaline Phosphatase 113 Troponin I High Sens 8.7 C-Reactive Protein 8.63 H Total Protein 8.1 H Albumin 4.5 Lipase 13 Urine Color Yellow Urine Appearance Clear Urine pH 5.5 Ur Specific [place] >= 1.030 H Urine Protein Negative Urine Glucose (UA) Negative Urine Ketones Negative Urine Blood Trace H Urine Nitrite Negative Ur Leukocyte Esterase Moderate (2+) H Urine RBC 0-2 Urine WBC >50 H Ur Squamous Epith Cells 0-2 Urine Bacteria None Seen Hyaline Casts 0-2 Influenza Type A (PCR) NEGATIVE Influenza Type B (PCR) NEGATIVE RSV RNA Qual (PCR) NEGATIVE SARS-CoV-2 RNA (RT-PCR) NEGATIVE 07/21/25 05:25 MCV 88.9 MCH 28.7 MCHC 32.2 RDW 16.7 H Plt Count 201 D MPV 11.4 Absolute Nucleated RBC 0.000 Nucleated RBC % (auto) 0.0 Anion Gap 14 Estim Creat Clear Calc 56.7 Estimated GFR > 60 Random Glucose 70 Lactic Acid Calcium 8.8 D Magnesium Total Bilirubin Direct Bilirubin AST ALT Alkaline Phosphatase Troponin I High Sens C-Reactive Protein Total Protein Albumin Lipase Urine Color Urine Appearance Urine pH Ur Specific [place] Urine Protein Urine Glucose (UA) Urine Ketones Urine Blood Urine Nitrite Ur Leukocyte Esterase Urine RBC Urine WBC Ur Squamous Epith Cells Urine Bacteria Hyaline Casts Influenza Type A (PCR) Influenza Type B (PCR) RSV RNA Qual (PCR) SARS-CoV-2 RNA (RT-PCR) Assessment and Plan (1) Colitis: Status: Acute (2) CAD (coronary artery disease): Status: Acute (3) Carotid stenosis, bilateral: Status: Acute (4) Hyperlipidemia: Status: Acute Plan 75/F with hyperlipidemia, carotid stenosis, CAD, coronary artery bypass grafting two-vessel 01/29/2024, postop AFib presents with RLLQ abdominal pain for several days, preceded by diarrhea, no blood in stool, has had dry heaves but no vomiting and no fever. She has sepsis d/t Colitis on CT scan Sepsis d/t Colitis, inflmaed appendice believed to be secondary, improving, WBC down, less tender continue Flagy and Ceftriaxone started 07/20 Surgery following, no indication for surgery GI eval, likely will need colonoscopy later start liquid diet Morphine for pain CAD, HLD, HTN resume home meds DVT prophylaxis: Lovenox, compression device Full code Admission for at least 2 midnights d/t sepsis d/t colitis at risk perforated viscus if not treated agresively with IV antibiotics. Quality Stroke Does the patient have a stroke diagnosis?: No VTE Prior VTE?: No VTE Risk Level:: Medical - moderate - high VTE Device Contraindication: N/A - Device Ordered VTE Drug Contraindication: N/A - Med Ordered
--- NOTE | 2025-07-21 11:41 | MHC.CM.PN ---
PT S DGTE AND BOB DLIVE WITH PT SHE IS INDEPDENT HAD NIO PREVIOUS SERVICS PT HAS A RIDE HOME DC PLAN HOME N/S
[2025-07-21 15:33] VITALS: BP 150/71; PULSE 66; RESP 12; TEMP 36.8; O2SAT 96
[2025-07-21 20:00] VITALS: BP 130/84; PULSE 72; RESP 19; TEMP 36.9; O2SAT 95
[2025-07-21] MEDS: 0.9 % Sodium Chloride Flush 3 ML SYRINGE IVFLUSH (23:15)
[2025-07-22 03:26] VITALS: BP 133/64; PULSE 71; RESP 18; TEMP 36.7; O2SAT 97
[2025-07-22] MEDS: metroNIDAZOLE/NS 500 MG/100 ML PIGGYBACK 100 MG IV ×3 (04:58→21:09)
[2025-07-22 06:30] LABS: Hematocrit 37.8 % (37.0-47.0); Hemoglobin 12.7 g/dl (12.0-16.0); Mean Corpuscular HGB Conc 33.6 g/dl (31.0-35.0); Mean Corpuscular Hemoglobin 29.1 pg (27.0-33.0); Mean Corpuscular Volume 86.5 fL (80.0-98.0); NRBC Abs Auto 0.000 X10*3/uL (0.0-0.012); NRBC Pct Auto 0.0 /100WBC (0.0-0.2); Platelet Count 267 X10*3/uL (160-400); Red Blood Count 4.37 X10*6/uL (4.20-5.50); White Blood Count 12.9 X10*3/uL (4.8-10.8)
[2025-07-22 06:53] LABS: Anion Gap 13 (12-20); Blood Urea Nitrogen 6 mg/dL (9-16); Calcium 9.2 mg/dL (8.4-10.2); Carbon Dioxide 23 mmol/L (22-29); Chloride 107 mmol/L (96-108); Creatinine Clr Calc Pharmacy 61.7; Estimated Glomerular Filt Rate > 60; Potassium 3.5 mmol/L (3.3-5.1); Sodium 139 mmol/L (135-145)
--- NOTE | 2025-07-22 07:46 | P.PNGS_ITS ---
Subjective Subjective Date of Service: 07/22/25 Interval history: Currently reports improvement in pain but did have diarrhea following clear liquids yesterday. No blood. Reports very watery. Physical Exam 2 Vital Signs: Vital Signs: Last Vital Signs Temp 98.1 F 07/22/25 03:26 Pulse 71 07/22/25 03:26 Resp 18 07/22/25 03:26 BP 133/64 07/22/25 03:26 Pulse Ox 97 07/22/25 03:26 O2 Del Method Room Air 07/22/25 03:26 BMI result Body Mass Index 23.3 Const: General: comfortable, no acute distress and alert O rientation/consciousness: patient oriented x3 Resp: Effort & Inspection: normal respiratory effort GI: Other: soft moderate tenderness mid right abdomen, mild RLQ negative rovsing sign Palpation (GI): no guarding and not rigid Percussion: Yes normal to percussion Skin: General skin exam: no rashes or lesions noted Neuro: General: patient oriented x3 and moves all extremities Objective Data Active Medications Acetaminophen (Acetaminophen 325 Mg Tablet) 650 mg PO Q6H PRN PRN Reason: Pain, Mild 1-3,fever,headache Aspirin (Aspirin Enteric Coated 81 Mg Tablet.) 81 mg PO DAILY [facility] Last Admin: 07/21/25 08:36 Dose: 81 mg Documented By: RUTH Atorvastatin Calcium (Atorvastatin Calcium 80 Mg Tablet) 80 mg PO BEDTIME [facility] Last Admin: 07/21/25 20:50 Dose: 80 mg Documented By: MICHAEL Calcium Carbonate (Calcium Carbonate 750 Mg Tab.Chew) 750 mg PO Q4H PRN PRN Reason: Heartburn Ezetimibe (Ezetimibe 10 Mg Tablet) 10 mg PO DAILY [facility] Last Admin: 07/21/25 08:36 Dose: 10 mg Documented By: RUTH Enoxaparin Sodium (Enoxaparin Sodium 40 Mg/0.4 Ml Syringe) 40 mg SUBCUT Q24H [facility] Last Admin: 07/21/25 17:24 Dose: 40 mg Documented By: RUTH Lactated Ringer's (Lr) 1,000 mls @ 100 mls/hr IVCONT .Q10H [facility] Last Infusion: 07/22/25 07:38 Dose: Infused Documented By: PORTILLO Ceftriaxone Sodium 2 gm/ (Sodium Chloride) 50 mls @ 100 mls/hr IV Q24H [facility] Last Infusion: 07/21/25 09:53 Dose: Infused Documented By: RUTH Metronidazole (Flagyl) 500 mg in 100 mls @ 100 mls/hr IV Q8H [facility] Last Infusion: 07/22/25 06:00 Dose: Infused Documented By: MICHAEL Magnesium Hydroxide (Milk Of Magnesia 30 Ml Oral.Susp) 30 ml PO DAILY PRN PRN Reason: Constipation Melatonin (Melatonin 3 Mg Tablet) 6 mg PO BEDTIME PRN PRN Reason: Insomnia Metoprolol Tartrate (Metoprolol Tartrate 50 Mg Tablet) 50 mg PO BID [facility]; Protocol Last Admin: 07/21/25 20:50 Dose: 50 mg Documented By: MICHAEL Morphine Sulfate (Morphine Sulfate 4 Mg/Ml Cartridge) 2 mg IVPUSH Q4H PRN; Protocol PRN Reason: Pain, Severe (Pain Scale 7-10) Last Admin: 07/20/25 20:37 Dose: 2 mg Documented By: LOU Multivitamins/Vitamin C (Multivitamin Tablet) 1 tab PO DAILY [facility] Last Admin: 07/21/25 08:36 Dose: 1 tab Documented By: RUTH Non-Formulary Medication (Bempedoic Acid [Nexletol]) 180 mg PO BEDTIME [facility] Sodium Chloride (0.9 % Sodium Chloride Flush 3 Ml Syringe) 3 ml IVFLUSH QSHIFT [facility] Last Admin: 07/21/25 23:15 Dose: 3 ml Documented By: MICHAEL Labs 07/22/25 05:53 07/22/25 05:53 Labs: Laboratory Results - last 24 hr 07/22/25 05:53 MCV 86.5 MCH 29.1 MCHC 33.6 RDW 16.0 Plt Count 267 D MPV 11.6 Absolute Nucleated RBC 0.000 Nucleated RBC % (auto) 0.0 Anion Gap 13 Estim Creat Clear Calc 61.7 Estimated GFR > 60 Random Glucose 100 Calcium 9.2 Microbiology Microbiology Results: Microbiology 07/20/25 12:29 Blood Culture - Preliminary Blood - Venous No growth after 24 hours. 07/20/25 12:28 Blood Culture - Preliminary Blood - Venous No growth after 24 hours. 07/20/25 18:18 Urine Culture - Preliminary Urine clean catch Culture too young to evaluate. Procedures Date of Service Date of Service: 07/22/25 Progress Note: A&P Assessment and plan (1) Colitis: Status: Acute Plan Symptomatically improved but c/o loose stools again with clear liquids. Has continued right sided tenderness but overall improved on exam, no peritoneal signs. VSS. Repeat CT scan ordered by hospitalist service for question of appendicitis. Given the degree of inflammation of the right colon, would continue to recommend supportive measures even if the wall thickening of the appendix were secondary to acute appendicitis rather than acute colitis as she would likely require an ileocolectomy. No appendicolith noted. WBC downtrending. Cont IV abx. Stool studies may be beneficial. Time Spent With Patient Time: Total time managing care of this patient today ____ minutes. Quality Stroke Does the patient have a stroke diagnosis?: No VTE Prior VTE?: No VTE Risk Level:: Medical - moderate - high VTE Device Contraindication: N/A - Device Ordered VTE Drug Contraindication: N/A - Med Ordered
[2025-07-22] MEDS: Lactated Ringers 1,000 ML 100 ML IVCONT (07:49)
[2025-07-22 08:12] VITALS: BP 155/71; PULSE 67; RESP 18; TEMP 36.1; O2SAT 94
[2025-07-22] MEDS: Aspirin Enteric Coated 81 MG TABLET.DR PO (08:17)
--- NOTE | 2025-07-22 09:53 | HO.PM.IMPN ---
Subjective Subjective Date of Service: 07/22/25 Interval History: f/u on colitis less tender had diarrrhea with liquid diet Physical Exam Vital Signs: Vital Signs: Last Vital Signs Temp 97.0 F 07/22/25 08:12 Pulse 67 07/22/25 08:12 Resp 18 07/22/25 08:12 BP 155/71 H 07/22/25 08:12 Pulse Ox 94 07/22/25 08:12 O2 Del Method Room Air 07/22/25 08:12 BMI result Body Mass Index 23.3 Const: Other: General: AO X 3, no acute distress Resp: CTA bilateral CVS: S1,S2,RRR GI: mild rlq tenderness o/w unremarkable Skin: No rash Neuro: motor grossly intact Psych: appropriate affect Objective Data Active Medications Acetaminophen (Acetaminophen 325 Mg Tablet) 650 mg PO Q6H PRN PRN Reason: Pain, Mild 1-3,fever,headache Aspirin (Aspirin Enteric Coated 81 Mg Tablet.) 81 mg PO DAILY [facility] Last Admin: 07/22/25 08:17 Dose: 81 mg Documented By: PORTILLO Atorvastatin Calcium (Atorvastatin Calcium 80 Mg Tablet) 80 mg PO BEDTIME [facility] Last Admin: 07/21/25 20:50 Dose: 80 mg Documented By: MICHAEL Calcium Carbonate (Calcium Carbonate 750 Mg Tab.Chew) 750 mg PO Q4H PRN PRN Reason: Heartburn Ezetimibe (Ezetimibe 10 Mg Tablet) 10 mg PO DAILY [facility] Last Admin: 07/22/25 08:17 Dose: 10 mg Documented By: PORTILLO Enoxaparin Sodium (Enoxaparin Sodium 40 Mg/0.4 Ml Syringe) 40 mg SUBCUT Q24H [facility] Last Admin: 07/21/25 17:24 Dose: 40 mg Documented By: RUTH Lactated Ringer's (Lr) 1,000 mls @ 100 mls/hr IVCONT .Q10H [facility] Last Admin: 07/22/25 07:49 Dose: 100 mls/hr Documented By: PORTILLO Ceftriaxone Sodium 2 gm/ (Sodium Chloride) 50 mls @ 100 mls/hr IV Q24H [facility] Last Infusion: 07/21/25 09:53 Dose: Infused Documented By: RUTH Metronidazole (Flagyl) 500 mg in 100 mls @ 100 mls/hr IV Q8H [facility] Last Infusion: 07/22/25 06:00 Dose: Infused Documented By: MICHAEL Magnesium Hydroxide (Milk Of Magnesia 30 Ml Oral.Susp) 30 ml PO DAILY PRN PRN Reason: Constipation Melatonin (Melatonin 3 Mg Tablet) 6 mg PO BEDTIME PRN PRN Reason: Insomnia Metoprolol Tartrate (Metoprolol Tartrate 50 Mg Tablet) 50 mg PO BID [facility]; Protocol Last Admin: 07/22/25 08:17 Dose: 50 mg Documented By: PORTILLO Morphine Sulfate (Morphine Sulfate 4 Mg/Ml Cartridge) 2 mg IVPUSH Q4H PRN; Protocol PRN Reason: Pain, Severe (Pain Scale 7-10) Last Admin: 07/20/25 20:37 Dose: 2 mg Documented By: LOU Multivitamins/Vitamin C (Multivitamin Tablet) 1 tab PO DAILY [facility] Last Admin: 07/22/25 08:17 Dose: 1 tab Documented By: PORTILLO Non-Formulary Medication (Bempedoic Acid [Nexletol]) 180 mg PO BEDTIME [facility] Sodium Chloride (0.9 % Sodium Chloride Flush 3 Ml Syringe) 3 ml IVFLUSH QSHIFT [facility] Last Admin: 07/22/25 08:17 Dose: Not Given Documented By: PORTILLO Non-Admin Reason: IV Running Labs 07/22/25 05:53 07/22/25 05:53 Labs: Laboratory Results - last 24 hr 07/22/25 05:53 MCV 86.5 MCH 29.1 MCHC 33.6 RDW 16.0 Plt Count 267 D MPV 11.6 Absolute Nucleated RBC 0.000 Nucleated RBC % (auto) 0.0 Anion Gap 13 Estim Creat Clear Calc 61.7 Estimated GFR > 60 Random Glucose 100 Calcium 9.2 Microbiology Microbiology Results: Microbiology 07/20/25 18:18 Urine Culture - Final Urine clean catch 07/20/25 12:29 Blood Culture - Preliminary Blood - Venous No growth after 24 hours. 07/20/25 12:28 Blood Culture - Preliminary Blood - Venous No growth after 24 hours. Assessment and Plan (1) Colitis: Status: Acute (2) CAD (coronary artery disease): Status: Acute (3) Carotid stenosis, bilateral: Status: Acute (4) Hyperlipidemia: Status: Acute Plan 75/F with hyperlipidemia, carotid stenosis, CAD, coronary artery bypass grafting two-vessel 01/29/2024, postop AFib presents with RLLQ abdominal pain for several days, preceded by diarrhea, no blood in stool, has had dry heaves but no vomiting and no fever. She has sepsis d/t Colitis on CT scan Sepsis d/t Colitis, inflmaed appendice believed to be secondary, improving, WBC down, less tender continue Flagy and Ceftriaxone started 07/20 Surgery following, no indication for surgery GI eval, likely will need colonoscopy later, rec repeat CT with contrast to exlcude appendicitis continue liquid diet if lara Morphine for pain CAD, HLD, HTN continue home meds (metoprolol, zetia, lipitor and ASA) DVT prophylaxis: Lovenox, compression device Full code Admission for at least 2 midnights d/t sepsis d/t colitis at risk perforated viscus if not treated agresively with IV antibiotics. Quality Stroke Does the patient have a stroke diagnosis?: No VTE Prior VTE?: No VTE Risk Level:: Medical - moderate - high VTE Device Contraindication: N/A - Device Ordered VTE Drug Contraindication: N/A - Med Ordered
--- NOTE | 2025-07-22 10:55 | MHC.CM.PN ---
PER MD ROUNDS, PT NOT MEDICALLY CLEARED. PLAN FOR REPEAT CT POSSIBLE DC TOMORROW
[2025-07-22] MEDS: iohexoL 350 MG/ML 100 ML INFUS..BTL IV (11:51)
[2025-07-22 15:49] VITALS: BP 158/69; PULSE 69; RESP 18; TEMP 36.1; O2SAT 95
[2025-07-22 19:35] VITALS: BP 127/61; PULSE 68; RESP 18; TEMP 36.4; O2SAT 96
[2025-07-22] MEDS: 0.9 % Sodium Chloride Flush 3 ML SYRINGE IVFLUSH (21:15)
[2025-07-23 03:40] VITALS: BP 125/70; PULSE 68; RESP 18; TEMP 36.3; O2SAT 96
[2025-07-23] MEDS: metroNIDAZOLE/NS 500 MG/100 ML PIGGYBACK 100 MG IV ×3 (04:59→22:28)
[2025-07-23 06:45] LABS: Hematocrit 36.8 % (37.0-47.0); Hemoglobin 12.3 g/dl (12.0-16.0); Mean Corpuscular HGB Conc 33.4 g/dl (31.0-35.0); Mean Corpuscular Hemoglobin 28.9 pg (27.0-33.0); Mean Corpuscular Volume 86.4 fL (80.0-98.0); NRBC Abs Auto 0.000 X10*3/uL (0.0-0.012); NRBC Pct Auto 0.0 /100WBC (0.0-0.2); Platelet Count 263 X10*3/uL (160-400); Red Blood Count 4.26 X10*6/uL (4.20-5.50); White Blood Count 9.7 X10*3/uL (4.8-10.8)
[2025-07-23 07:13] LABS: Anion Gap 11 (12-20); Blood Urea Nitrogen 3 mg/dL (9-16); Calcium 9.0 mg/dL (8.4-10.2); Carbon Dioxide 23 mmol/L (22-29); Chloride 108 mmol/L (96-108); Creatinine Clr Calc Pharmacy 61.7; Estimated Glomerular Filt Rate > 60; Potassium 3.1 mmol/L (3.3-5.1); Sodium 139 mmol/L (135-145)
[2025-07-23 07:54] VITALS: BP 167/78; PULSE 70; RESP 18; TEMP 36.6; O2SAT 95
--- NOTE | 2025-07-23 08:16 | PM.PNGS ---
Subjective Subjective Date of Service: 07/23/25 <Marbella Maxwell PA-C - Last Filed: 07/23/25 08:21> 07/23/25 <Marcos Dennis MD - Last Filed: 07/23/25 08:29> Interval history: States right sided pain is improved but feels lousy due to loose stools yesterday. Reports having 6-7 liquid, watery bowel movements yesterday. No blood. Excited to try solid food today. <Marbella Maxwell PA-C - Last Filed: 07/23/25 08:21> Physical Exam Vital Signs: Vital Signs: Last Vital Signs Temp 97.8 F 07/23/25 07:54 Pulse 70 07/23/25 07:54 Resp 18 07/23/25 07:54 BP 167/78 H 07/23/25 07:54 Pulse Ox 95 07/23/25 07:54 O2 Del Method Room Air 07/23/25 07:54 BMI result Body Mass Index 23.3 <Marbella Maxwell PA-C - Last Filed: 07/23/25 08:21> Const: General: healthy appearing, comfortable, no acute distress and alert <Marbella Maxwell PA-C - Last Filed: 07/23/25 08:21> Orientation/consciousness: patient oriented x3 <Marbella Maxwell PA-C - Last Filed: 07/23/25 08:21> Resp: Effort & Inspection: normal respiratory effort and able to speak in complete sentences <Marbella Maxwell PA-C - Last Filed: 07/23/25 08:21> GI: Other: soft right sided abd tenderness significantly improved <Marbella Maxwell PA-C - Last Filed: 07/23/25 08:21> Palpation (GI): no guarding and not rigid <BENITO Cardenas Last Filed: 07/23/25 08:21> Skin: General skin exam: no rashes or lesions noted <BENITO Cardenas Last Filed: 07/23/25 08:21> Neuro: General: patient oriented x3 and moves all extremities <Marbella Maxwell PA-C - Last Filed: 07/23/25 08:21> Objective Data Active Medications Acetaminophen (Acetaminophen 325 Mg Tablet) 650 mg PO Q6H PRN PRN Reason: Pain, Mild 1-3,fever,headache Last Admin: 07/22/25 15:44 Dose: 650 mg Documented By: PORTILLO Aspirin (Aspirin Enteric Coated 81 Mg Tablet.) 81 mg PO DAILY [facility] Last Admin: 07/22/25 08:17 Dose: 81 mg Documented By: PORTILLO Atorvastatin Calcium (Atorvastatin Calcium 80 Mg Tablet) 80 mg PO BEDTIME [facility] Last Admin: 07/22/25 21:09 Dose: 80 mg Documented By: MICHAEL Calcium Carbonate (Calcium Carbonate 750 Mg Tab.Chew) 750 mg PO Q4H PRN PRN Reason: Heartburn Ezetimibe (Ezetimibe 10 Mg Tablet) 10 mg PO DAILY [facility] [place] Last Admin: 07/22/25 08:17 Dose: 10 mg Documented By: PORTILLO Enoxaparin Sodium (Enoxaparin Sodium 40 Mg/0.4 Ml Syringe) 40 mg SUBCUT Q24H [facility] [place] Last Admin: 07/22/25 17:52 Dose: 40 mg Documented By: PORTILLO Ceftriaxone Sodium 2 gm/ (Sodium Chloride) 50 mls @ 100 mls/hr IV Q24H [facility] [place] Last Infusion: 07/22/25 11:01 Dose: Infused Documented By: PORTILLO Metronidazole (Flagyl) 500 mg in 100 mls @ 100 mls/hr IV Q8H [facility] Last Infusion: 07/23/25 06:00 Dose: Infused Documented By: MICHAEL Magnesium Hydroxide (Milk Of Magnesia 30 Ml Oral.Susp) 30 ml PO DAILY PRN PRN Reason: Constipation Melatonin (Melatonin 3 Mg Tablet) 6 mg PO BEDTIME PRN PRN Reason: Insomnia Metoprolol Tartrate (Metoprolol Tartrate 50 Mg Tablet) 50 mg PO BID [facility]; Protocol Last Admin: 07/22/25 21:09 Dose: 50 mg Documented By: MICHAEL Morphine Sulfate (Morphine Sulfate 4 Mg/Ml Cartridge) 2 mg IVPUSH Q4H PRN; Protocol PRN Reason: Pain, Severe (Pain Scale 7-10) Last Admin: 07/20/25 20:37 Dose: 2 mg Documented By: LOU Multivitamins/Vitamin C (Multivitamin Tablet) 1 tab PO DAILY [facility] Last Admin: 07/22/25 08:17 Dose: 1 tab Documented By: PORTILLO Non-Formulary Medication (Bempedoic Acid [Nexletol]) 180 mg PO BEDTIME [facility] Sodium Chloride (0.9 % Sodium Chloride Flush 3 Ml Syringe) 3 ml IVFLUSH QSHIFT [facility] Last Admin: 07/22/25 21:15 Dose: 3 ml Documented By: MICHAEL <Marbella Maxwell PA-C - Last Filed: 07/23/25 08:21> Labs CBC & Chem 7: 07/23/25 06:05 07/23/25 06:05 <Marbella Maxwell PA-C - Last Filed: 07/23/25 08:21> Labs: Laboratory Results - last 24 hr 07/23/25 06:05 MCV 86.4 MCH 28.9 MCHC 33.4 RDW 16.0 Plt Count 263 MPV 11.7 Absolute Nucleated RBC 0.000 Nucleated RBC % (auto) 0.0 Anion Gap 11 L Estim Creat Clear Calc 61.7 Estimated GFR > 60 Random Glucose 102 Calcium 9.0 <Marbella Maxwell PA-C - Last Filed: 07/23/25 08:21> Microbiology Microbiology Results: Microbiology 07/20/25 12:29 Blood Culture - Preliminary Blood - Venous No growth after 48 hours. 07/20/25 12:28 Blood Culture - Preliminary Blood - Venous No growth after 48 hours. 07/20/25 18:18 Urine Culture - Final Urine clean catch <Marbella Maxwell PA-C - Last Filed: 07/23/25 08:21> Procedures Date of Service Date of Service: 07/23/25 <Marbella Maxwell PA-C - Last Filed: 07/23/25 08:21> 07/23/25 <Marcos Dennis MD - Last Filed: 07/23/25 08:29> Progress Note: A&P Assessment and plan (1) Colitis: Status: Acute <aMrbella Maxwell PA-C - Last Filed: 07/23/25 08:21> Assessment and Plan: Repeat CT scan yesterday showed mild improvement in the wall thickening of the right colon, mild hyperemia of the base of the appendix, with the appendix being normal in caliber with intraluminal air and no periappendiceal inflammatory stranding, again suggesting thickening of appendix secondary to cecal inflammation. Her pain is improved this morning but had multiple loose stools yesterday with liquids. Abd remains benign and improved this morning with less tenderness. WBC now normalized. Cont to recommend IV abx and supportive measures. Advance diet as tolerated. <Marbella Maxwell PA-C - Last Filed: 07/23/25 08:21> Repeat CT scan yesterday showed mild improvement in the wall thickening of the right colon, mild hyperemia of the base of the appendix, with the appendix being normal in caliber with intraluminal air and no periappendiceal inflammatory stranding, again suggesting thickening of appendix secondary to cecal inflammation. Her pain is improved this morning but had multiple loose stools yesterday with liquids. Abd remains benign and improved this morning with less tenderness. WBC now normalized. Cont to recommend IV abx and supportive measures. Advance diet as tolerated. CT reviewed: minimal inflammtion of appendix adjacent to the cecum with circumferential wall thickening of the cecum, improved from prior CT. Still with loose stools reported. Agree with the above assessment and plan. <Marcos Dennis MD - Last Filed: 07/23/25 08:29> Time Spent With Patient Time: Total time managing care of this patient today ____ minutes. <Marbella Maxwell PA-C - Last Filed: 07/23/25 08:21> Quality Stroke Does the patient have a stroke diagnosis?: No <Marbella Maxwell PA-C - Last Filed: 07/23/25 08:21> VTE Prior VTE?: No <Marbella Maxwell PA-C - Last Filed: 07/23/25 08:21> VTE Risk Level:: Medical - moderate - high <Marbella Maxwell PA-C - Last Filed: 07/23/25 08:21> VTE Device Contraindication: N/A - Device Ordered <Marbella Maxwell PA-C - Last Filed: 07/23/25 08:21> VTE Drug Contraindication: N/A - Med Ordered <Marbella Maxwell PA-C - Last Filed: 07/23/25 08:21>
[2025-07-23] MEDS: Aspirin Enteric Coated 81 MG TABLET.DR PO (08:44)
[2025-07-23] MEDS: 0.9 % Sodium Chloride Flush 3 ML SYRINGE IVFLUSH ×3 (08:44→22:30)
--- NOTE | 2025-07-23 09:50 | P.PNIM_ITS ---
Subjective Subjective Date of Service: 07/23/25 Interval History: f/u on colitis less tender less loose stool repeat CT with contrast, no appendicitis WBC is now normal and she feels hungry Physical Exam 2 Vital Signs: Vital Signs: Last Vital Signs Temp 97.8 F 07/23/25 07:54 Pulse 70 07/23/25 07:54 Resp 18 07/23/25 07:54 BP 167/78 H 07/23/25 07:54 Pulse Ox 95 07/23/25 07:54 O2 Del Method Room Air 07/23/25 07:54 BMI result Body Mass Index 23.3 Const: Other: General: AO X 3, no acute distress Resp: CTA bilateral CVS: S1,S2,RRR GI: mild rlq tenderness o/w unremarkable Skin: No rash Neuro: motor grossly intact Psych: appropriate affect Objective Data Active Medications Acetaminophen (Acetaminophen 325 Mg Tablet) 650 mg PO Q6H PRN PRN Reason: Pain, Mild 1-3,fever,headache Last Admin: 07/22/25 15:44 Dose: 650 mg Documented By: PORTILLO Aspirin (Aspirin Enteric Coated 81 Mg Tablet.Dr) 81 mg PO DAILY [facility] Last Admin: 07/23/25 08:44 Dose: 81 mg Documented By: PORTILLO Atorvastatin Calcium (Atorvastatin Calcium 80 Mg Tablet) 80 mg PO BEDTIME [facility] Last Admin: 07/22/25 21:09 Dose: 80 mg Documented By: MICHAEL Calcium Carbonate (Calcium Carbonate 750 Mg Tab.Chew) 750 mg PO Q4H PRN PRN Reason: Heartburn Ezetimibe (Ezetimibe 10 Mg Tablet) 10 mg PO DAILY [facility] Last Admin: 07/23/25 08:44 Dose: 10 mg Documented By: PORTILLO Enoxaparin Sodium (Enoxaparin Sodium 40 Mg/0.4 Ml Syringe) 40 mg SUBCUT Q24H [facility] Last Admin: 07/22/25 17:52 Dose: 40 mg Documented By: PORTILLO Ceftriaxone Sodium 2 gm/ (Sodium Chloride) 50 mls @ 100 mls/hr IV Q24H [facility] Last Infusion: 07/22/25 11:01 Dose: Infused Documented By: PORTILLO Metronidazole (Flagyl) 500 mg in 100 mls @ 100 mls/hr IV Q8H [facility] Last Infusion: 07/23/25 06:00 Dose: Infused Documented By: MICHAEL Magnesium Hydroxide (Milk Of Magnesia 30 Ml Oral.Susp) 30 ml PO DAILY PRN PRN Reason: Constipation Melatonin (Melatonin 3 Mg Tablet) 6 mg PO BEDTIME PRN PRN Reason: Insomnia Metoprolol Tartrate (Metoprolol Tartrate 50 Mg Tablet) 50 mg PO BID [facility]; Protocol Last Admin: 07/23/25 08:44 Dose: 50 mg Documented By: PORTILLO Morphine Sulfate (Morphine Sulfate 4 Mg/Ml Cartridge) 2 mg IVPUSH Q4H PRN; Protocol PRN Reason: Pain, Severe (Pain Scale 7-10) Last Admin: 07/20/25 20:37 Dose: 2 mg Documented By: LOU Multivitamins/Vitamin C (Multivitamin Tablet) 1 tab PO DAILY [facility] Last Admin: 07/23/25 08:44 Dose: 1 tab Documented By: PORTILLO Non-Formulary Medication (Bempedoic Acid [Nexletol]) 180 mg PO BEDTIME [facility] Sodium Chloride (0.9 % Sodium Chloride Flush 3 Ml Syringe) 3 ml IVFLUSH QSHIFT [facility] Last Admin: 07/23/25 08:44 Dose: 3 ml Documented By: PORTILLO Labs 07/23/25 06:05 07/23/25 06:05 Labs: Laboratory Results - last 24 hr 07/23/25 06:05 MCV 86.4 MCH 28.9 MCHC 33.4 RDW 16.0 Plt Count 263 MPV 11.7 Absolute Nucleated RBC 0.000 Nucleated RBC % (auto) 0.0 Anion Gap 11 L Estim Creat Clear Calc 61.7 Estimated GFR > 60 Random Glucose 102 Calcium 9.0 Microbiology Microbiology Results: Microbiology 07/20/25 12:29 Blood Culture - Preliminary Blood - Venous No growth after 48 hours. 07/20/25 12:28 Blood Culture - Preliminary Blood - Venous No growth after 48 hours. 07/20/25 18:18 Urine Culture - Final Urine clean catch Assessment and Plan (1) Colitis: Status: Acute (2) CAD (coronary artery disease): Status: Acute (3) Carotid stenosis, bilateral: Status: Acute (4) Hyperlipidemia: Status: Acute Plan 75/F with hyperlipidemia, carotid stenosis, CAD, coronary artery bypass grafting two-vessel 01/29/2024, postop AFib presents with RLLQ abdominal pain for several days, preceded by diarrhea, no blood in stool, has had dry heaves but no vomiting and no fever. She has sepsis d/t Colitis on CT scan Sepsis d/t Colitis, inflmaed appendice believed to be secondary, improving, WBC is now normal, less tender continue Flagy and Ceftriaxone started 07/20--at DC change to PO Flagyl 500 tid and Cefuroxime 500 bid for x 5 days Surgery following, no indication for surgery GI eval, likely will need colonoscopy later, repeat CT with contrast no appendicitis continue liquid diet if lara advance to Full liquid today Morphine for pain CAD, HLD, HTN continue home meds (metoprolol, zetia, lipitor and ASA) DVT prophylaxis: Lovenox, compression device Full code Possible dc later today if not tomorrow Quality Stroke Does the patient have a stroke diagnosis?: No VTE Prior VTE?: No VTE Risk Level:: Medical - moderate - high VTE Device Contraindication: N/A - Device Ordered VTE Drug Contraindication: N/A - Med Ordered
--- NOTE | 2025-07-23 12:12 | P.PNGI_ITS ---
Subjective Subjective Date of Service: 07/23/25 Interval History: Seen and evaluated at bedside. Reports improvement in appetite and abd pain. Looking fwd to eating solids. Critical Care Time (minutes): 0 Physical Exam 2 Exam: Exam: elderly female NAD abd soft, nontender, nondistended Vital Signs: Vital Signs: Last Vital Signs Temp 97.8 F 07/23/25 07:54 Pulse 70 07/23/25 07:54 Resp 18 07/23/25 07:54 BP 167/78 H 07/23/25 07:54 Pulse Ox 95 07/23/25 07:54 O2 Del Method Room Air 07/23/25 07:54 BMI result Body Mass Index 23.3 Objective Data Labs 07/23/25 06:05 07/23/25 06:05 Labs: Laboratory Results - last 24 hr 07/23/25 06:05 WBC 9.7 RBC 4.26 Hgb 12.3 Hct 36.8 L MCV 86.4 MCH 28.9 MCHC 33.4 RDW 16.0 Plt Count 263 MPV 11.7 Absolute Nucleated RBC 0.000 Nucleated RBC % (auto) 0.0 Sodium 139 Potassium 3.1 L Chloride 108 Carbon Dioxide 23 Anion Gap 11 L BUN 3 L Creatinine 0.68 Estim Creat Clear Calc 61.7 Estimated GFR > 60 Random Glucose 102 Calcium 9.0 Microbiology Microbiology Results: Microbiology 07/20/25 12:29 Blood - Venous Blood Culture - Preliminary No growth after 48 hours. 07/20/25 12:28 Blood - Venous Blood Culture - Preliminary No growth after 48 hours. 07/20/25 18:18 Urine clean catch Urine Culture - Final Procedures Date of Service Date of Service: 07/23/25 Progress Note: A&P Assessment and plan (1) Colitis: Status: Acute (2) Abdominal pain: Status: Acute Plan Interval improvement in symptoms. Appendicitis unlikely on repeat imaging. Plan: - OK to advance diet - Will arrange for outpatient colonoscopy Time Spent With Patient Time: Total time managing care of this patient today ____ minutes. Quality Stroke Does the patient have a stroke diagnosis?: No VTE Prior VTE?: No VTE Risk Level:: Medical - moderate - high VTE Device Contraindication: N/A - Device Ordered VTE Drug Contraindication: N/A - Med Ordered
--- NOTE | 2025-07-23 15:39 | MHC.CM.PN ---
per rounds pt will not dc till sat pl;an remains home n/s
[2025-07-23 16:00] VITALS: BP 164/65; PULSE 61; RESP 18; TEMP 36.7; O2SAT 95
[2025-07-23 20:00] VITALS: BP 133/66; PULSE 69; RESP 18; TEMP 36.8; O2SAT 96
[2025-07-23 22:27] VITALS: BP 139/63; PULSE 65
--- NOTE | 2025-07-24 01:38 | PC.NURSE ---
Pt alert oriented x4. Reporting insomnia tonight. Melatonin provided for which patient reports good effect in allowing her to sleep overnight. At bedtime pt provided with toast and decaffeinated hot tea. Tolerated well with no N/V or diarrhea. VSS. Refer to EMAR for documentation.
[2025-07-24 03:46] VITALS: BP 126/56; PULSE 62; RESP 18; TEMP 36.2; O2SAT 95
[2025-07-24] MEDS: metroNIDAZOLE/NS 500 MG/100 ML PIGGYBACK 100 MG IV (04:57)
[2025-07-24 06:43] LABS: Hematocrit 37.0 % (37.0-47.0); Hemoglobin 12.3 g/dl (12.0-16.0); Mean Corpuscular HGB Conc 33.2 g/dl (31.0-35.0); Mean Corpuscular Hemoglobin 28.5 pg (27.0-33.0); Mean Corpuscular Volume 85.6 fL (80.0-98.0); NRBC Abs Auto 0.000 X10*3/uL (0.0-0.012); NRBC Pct Auto 0.0 /100WBC (0.0-0.2); Platelet Count 300 X10*3/uL (160-400); Red Blood Count 4.32 X10*6/uL (4.20-5.50); White Blood Count 8.7 X10*3/uL (4.8-10.8)
[2025-07-24 07:47] VITALS: BP 141/63; PULSE 66; RESP 16; TEMP 36.8; O2SAT 94
[2025-07-24] MEDS: Aspirin Enteric Coated 81 MG TABLET.DR PO (08:43)
[2025-07-24] MEDS: 0.9 % Sodium Chloride Flush 3 ML SYRINGE IVFLUSH (08:43)
--- NOTE | 2025-07-24 12:25 | PM.DS ---
DS: Providers Provider Date of admission: 07/20/25 17:37 Date of discharge: 07/24/25 Primary care physician: Traci Gunn MD Consults: 07/20/25 17:57 Consult to Gastroenterology Routine Consulting Provider: [facility] Reason for consultation: colitis DS: Diagnosis Discharge Diagnosis (1) Colitis: Status: Acute (2) Abdominal pain: Status: Acute DS: Summary Hospital Course Hospital Course: admission hpi Chief Complaint: abdominal pain 75/F with history of hyperlipidemia, carotid stenosis, CAD, and coronary artery bypass grafting (two-vessel, 01/29/2024), as well as postoperative atrial fibrillation, presents with right lower quadrant abdominal pain for several days. Pain was preceded by diarrhea (no blood in stool). She reports dry heaves but no vomiting and no fever. She has had poor oral intake but is able to tolerate liquids. Imaging: CT shows marked wall thickening of the cecum and proximal ascending colon, with possible mild involvement of the terminal ileum. Prominence of the appendix is thought to be secondary to the cecal inflammatory process. Labs: WBC: 20K CRP: 8.64 Consults: Evaluated by general surgery, who are not convinced of appendicitis and favor a diagnosis of colitis. ED Treatment: IV fluids, ceftriaxone, and Flagyl. hospital course 75/F with hyperlipidemia, carotid stenosis, CAD, coronary artery bypass grafting two-vessel 01/29/2024, postop AFib presents with RLLQ abdominal pain for several days, preceded by diarrhea, no blood in stool, has had dry heaves but no vomiting and no fever. She has sepsis d/t Colitis on CT scan The patient was admitted with sepsis due to colitis, with an inflamed appendix felt to be secondary rather than primary appendicitis. She was treated with IV ceftriaxone and metronidazole (Flagyl) and showed gradual clinical improvement. Her WBC count normalized, decreasing from 20 K to 8.7. She was evaluated by Surgery, with no indication for operative intervention. Gastroenterology also evaluated her and recommended a repeat CT scan with contrast, which showed no evidence of appendicitis. Her abdominal pain continued to improve, and her episode of diarrhea resolved. Her diet was advanced to a regular diet, which she is tolerating well. She will be discharged home on oral metronidazole (Flagyl) and cefuroxime axetil (Ceftin) for an additional 5 days, with outpatient follow-up with Gastroenterology (Dr. Ohara) for consideration of colonoscopy. Time Attestation Discharge Coordination Time (in mins): 45 Quality: Safe Use of Opioids Does Pt have an Active Cancer Diagnosis on the Problem List?: No Quality: Stroke Does the patient have a stroke diagnosis?: No Physical Exam Vital Signs: Vital Signs: Last Vital Signs Temp 98.3 F 07/24/25 07:47 Pulse 66 07/24/25 07:47 Resp 16 07/24/25 07:47 BP 141/63 H 07/24/25 07:47 Pulse Ox 94 07/24/25 07:47 O2 Del Method Room Air 07/24/25 07:47 BMI result Body Mass Index 23.3 Const: Other: General: AO X 3, no acute distress Resp: CTA bilateral CVS: S1,S2,RRR GI: +BS, NT, no distention Skin: No rash Neuro: motor grossly intact Psych: appropriate affect DS: Data Data Completed and Pending Labs on day of discharge: Laboratory Results - last 24 hr 07/24/25 05:46 WBC 8.7 RBC 4.32 Hgb 12.3 Hct 37.0 MCV 85.6 MCH 28.5 MCHC 33.2 RDW 15.9 Plt Count 300 MPV 11.4 Absolute Nucleated RBC 0.000 Nucleated RBC % (auto) 0.0 Preliminary micro results at discharge 07/20/25 12:29 Blood Culture - Preliminary Blood - Venous No growth after 48 hours. 07/20/25 12:28 Blood Culture - Preliminary Blood - Venous No growth after 48 hours. Discharge Plan Discharge Anticipated Discharge Date/Time: 07/24/25 12:20 Patient Disposition: Home Health Service Discharge Diagnosis: Colitis Referrals: Fina FALCON [Outside] - 1 Week Traci Gunn MD [Primary Care Provider, Internal Medicine] - 1 Week Theresa Ohara MD [Physician, Gastroenterology] - 1 Week Discharge Medications: New metronidazole 500 mg Tablet 500 mg PO TID Qty: 15 0RF cefuroxime axetil 500 mg tablet 500 mg PO BID 5 Days Qty: 10 0RF Continued rosuvastatin 40 mg tablet 40 mg PO BEDTIME Qty: 90 2RF metoprolol tartrate 50 mg tablet 50 mg PO BID Qty: 180 3RF ezetimibe 10 mg tablet 10 mg PO DAILY Qty: 90 3RF Centrum Silver Women 8 mg iron-400 mcg-50 mcg Tablet 1 tab PO DAILY Nexletol 180 mg tablet 180 mg PO BEDTIME aspirin [Adult Low Dose Aspirin] 81 mg tablet,delayed release (DR/EC) 81 mg PO DAILY Discharge Orders: Discharge Order (Routine); Ordered 07/24/25 Ordered By: Henok Carpenter Diet: Advance to usual diet Activity on Discharge: As tolerated Stand Alone Forms: Patient Portal Discharge page Print Language: Panamanian Care Plan Goals: recocvery from colitis Health Concerns: colitis Plan of Treatment: take Cefuroxime and Flagyl as recommended Follow up with Dr Ohara Gi doctor and your pcp within a week, call for appointment Assessment: see above
--- NOTE | 2025-07-24 13:00 | MHC.CM.PN ---
CM MET WITH PT TO DISCUSS DCP SHE IS DECLINING [facility] STATING SHE HAS HAD THEM BEFORE AND DOES NOT FEEL SHE NEEDS THEM SHE WILL DC HOME WITH NO SERVICES VIA PRIVATE TRANSPORT
== END 2025-07-24 12:56 | disposition home or self-care (01) | DRG 872 ==
LOC: HO.ED 16:47 → HO.EDOVER 17:40 → HO.S3 22:47
PROVIDERS: Emergency Medicine; Physician Assistant Medical; Admitting Provider Internal Medicine; Emergency Provider Emergency Medicine Emergency Medical Services; PCP Internal Medicine; Visit Provider Internal Medicine
DX: A41.9 Sepsis, unspecified organism (principal); A09 Infectious gastroenteritis and colitis, unspecified; I25.10 Atherosclerotic heart disease of native coronary artery without angina pectoris; E78.5 Hyperlipidemia, unspecified; I10 Essential (primary) hypertension; I35.0 Nonrheumatic aortic (valve) stenosis; Z20.822 Contact with and (suspected) exposure to COVID-19; Z95.1 Presence of aortocoronary bypass graft; Z87.891 Personal history of nicotine dependence; Z79.82 Long term (current) use of aspirin; Z79.899 Other long term (current) drug therapy
CPT/HCPCS: 36415; 74177; 80048; 80076; 81001; 83605; 83690; 83735; 84484; 85025; 85027; 86140; 87040; 87086; 87637; 93005; 99285; J0696; J1650; J1836; J2270; J2405; J7120; Q9967

== ENCOUNTER → 2025-07-20 10:58 | Outpatient (BNV) | payer MEDICARE, BC, SELFPAY | PROVIDERS: Emergency Provider Emergency Medicine Emergency Medical Services; PCP Internal Medicine; Visit Provider Internal Medicine Cardiovascular Disease | DX: R00.0 Tachycardia, unspecified (principal) | CPT/HCPCS: 93010 ==

== ENCOUNTER → 2025-07-20 11:48 | Outpatient (BNV) | payer MEDICARE, BC, SELFPAY | PROVIDERS: Emergency Provider Emergency Medicine Emergency Medical Services; PCP Internal Medicine; Visit Provider Radiology Diagnostic Radiology | DX: K63.89 Other specified diseases of intestine (principal) | CPT/HCPCS: 74177 ==

== ENCOUNTER 2025-07-20 17:37 | Outpatient (BNV) | payer MEDICARE, BC, SELFPAY | END 2025-07-22 11:25 | PROVIDERS: Admitting Provider Internal Medicine; Emergency Provider Emergency Medicine Emergency Medical Services; PCP Internal Medicine; Visit Provider Radiology Diagnostic Radiology | DX: K44.9 Diaphragmatic hernia without obstruction or gangrene (principal) | CPT/HCPCS: 74177 ==

== ENCOUNTER → 2025-07-20 17:37 | Outpatient (BNV) | payer MEDICARE, BC, SELFPAY | PROVIDERS: Admitting Provider Internal Medicine; Emergency Provider Emergency Medicine Emergency Medical Services; PCP Internal Medicine; Visit Provider Surgery | DX: K52.9 Noninfective gastroenteritis and colitis, unspecified (principal) | CPT/HCPCS: 99222 ==

== ENCOUNTER → 2025-07-20 17:37 | Outpatient (BNV) | payer MEDICARE, BC, SELFPAY | PROVIDERS: Admitting Provider Internal Medicine; Emergency Provider Emergency Medicine Emergency Medical Services; PCP Internal Medicine; Visit Provider Internal Medicine | DX: K52.9 Noninfective gastroenteritis and colitis, unspecified (principal); I25.10 Atherosclerotic heart disease of native coronary artery without angina pectoris; I65.23 Occlusion and stenosis of bilateral carotid arteries; E78.5 Hyperlipidemia, unspecified | CPT/HCPCS: 99222; 99232 ==

== ENCOUNTER → 2025-07-20 17:37 | Outpatient (BNV) | payer MEDICARE, BC, SELFPAY | PROVIDERS: Admitting Provider Internal Medicine; Emergency Provider Emergency Medicine Emergency Medical Services; PCP Internal Medicine; Visit Provider Internal Medicine | DX: K52.9 Noninfective gastroenteritis and colitis, unspecified (principal); R10.9 Unspecified abdominal pain | CPT/HCPCS: 99232 ==

== ENCOUNTER 2025-08-02 09:12 | Outpatient (AMB) | payer MEDICARE, BC, SELFPAY ==
--- NOTE | 2025-08-02 09:31 | MHC.OFFVIS ---
Vital Signs 08/02/25 09:34 Height 5 ft 4 in Weight 125 lb 3.561 oz BMI 21.5 BP 130/68 Blood Pressure Location Lt brachial Position Sitting Pulse 75 Pulse Source Pulse Oximeter Intake Visit Reasons: ED follow up (NS) Intake Note: Ed f/up Veterinary Practice Manager Required: No Accompanied by: Self / Same As Patient Allergies Penicillins Allergy (Intermediate, Verified 07/20/25 10:58) HIVES Medication List - Last Reconciled 08/02/25 by BREANNE Bueno aspirin (Adult Low Dose Aspirin) 81 mg PO DAILY bempedoic acid (Nexletol) 180 mg PO BEDTIME cefuroxime axetil 500 mg PO BID 5 days ezetimibe 10 mg PO DAILY metoprolol tartrate 50 mg PO BID metronidazole 500 mg PO TID oafhdfrp-gya-ksse-FA-vit K-lut 8 mg iron-400 mcg-50 mcg (Centrum Silver Women) 1 tab PO DAILY rosuvastatin 40 mg PO BEDTIME HPI Comments Details: History of Present Illness The patient is a 75-year-old female presenting for a follow-up visit for coronary artery disease and aortic stenosis. Her cardiac history is significant for coronary artery disease, status post a 2-vessel coronary artery bypass grafting on 01/29/2024, which was complicated by postoperative atrial fibrillation. An echocardiogram from 07/12/2025 showed an ejection fraction of 60-65% and mild to moderate aortic stenosis with a mean gradient of 10 mmHg. Her current cardiac medications include aspirin, rosuvastatin, Zetia, and metoprolol. She had recent hospitalized for five days due to abdominal pain, which was diagnosed as acute appendicitis and managed medically with IV and oral antibiotics. Following her discharge, she and her family contracted an influenza-like illness, and she experienced diarrhea for three weeks, which she believes was related to the antibiotics. She reports feeling better now, with a lingering cough productive of phlegm, but did not have a positive flu test. She anticipates a colonoscopy in the near future and is concerned about whether her heart can withstand a potential intestinal surgery. The patient also reports recent weight loss, and as a result, she can feel the wires from her sternotomy, and her scar feels more pronounced, causing her concern. She is also followed for carotid artery blockage, which has remained stable, and she keeps up with her annual appointments. Prior to her recent illnesses, she was active, with daily walks, fishing, and kayaking. FORMERLY [facility], [facility] Medical History CAD (coronary artery disease) Carotid stenosis, bilateral History of CVA (cerebrovascular accident) History of iron deficiency anemia History of adenomatous polyp of colon History of right inguinal hernia Abdominal mass, right lower quadrant Osteopenia of left femoral neck Recurrent major depression in partial remission H. pylori infection Hx of carotid stenosis Hyperlipidemia CAD (coronary artery disease) Dyslipidemia Surgical History S/P CABG x 2 History of right inguinal hernia repair (07/27/24) Status post aorto-coronary artery bypass graft History of dental surgery Hx of colonoscopy Status post cardiac catheterization Family History Paternal Grandfather Stomach cancer Mother CAD (coronary artery disease) Brother No problems noted. Brother No problems noted. Brother No problems noted. Brother No problems noted. Sister No problems noted. Son No problems noted. Son No problems noted. Daughter No problems noted. Social History Household Members: Children Housing: House Are you a primary hospice spiritual care coordinator to a significant other at home: No Do you presently have visiting nurse or other home services: No Alcohol intake: current Alcohol intake frequency: does not drink Alcohol type: wine Comment: aware of trip hazard Patient Tobacco Use Status: Former Tobacco user Tobacco use type: Cigarette e-Cigarette/Vaping Use: Never Used Advance Directives Date on File: 07/20/25 service: No Current occupational status: retired Cognitive needs: No Hearing needs: No Vision needs: Yes Review of Systems Const All systems reviewed & are unremarkable except as noted in HPI and below Denies chills, Reports fatigue, Denies fever(s), Denies frequent falls, Reports weakness, Denies weight gain and Reports weight loss ENT Denies dizziness Card Denies chest pain, Denies leg edema, Denies lightheadedness, Denies palpitations, Denies dyspnea and Denies dyspnea on exertion Resp Denies cough, Denies dyspnea and Denies dyspnea on exertion GI Denies hematochezia Musc Denies abnormal gait, Denies muscle weakness, Denies numbness, Denies radiating pain into limb and Denies tingling Neuro Denies abnormal gait, Denies dizziness, Denies frequent falls, Denies numbness, Denies tingling and Reports weakness Endo Reports fatigue and Denies palpitations Physical Exam Vital Signs: Last Vital Signs Pulse 75 08/02/25 09:34 BP 130/68 08/02/25 09:34 BMI result Body Mass Index 21.5 Const General: cooperative, healthy appearing, comfortable and no acute distress Orientation/consciousness: patient oriented x3 Neck Neck: Yes normal visual inspection Resp Effort & Inspection: normal respiratory effort Auscultation: clear to auscultation bilaterally, no rales, no rhonchi and no wheezes Cardio Rate: regular rate Rhythm: regular rhythm Heart sounds: S1 normal heart sound present, S2 normal heart sound present, no gallops, no murmurs and no rubs Neuro General: patient oriented x3 Extrem General: Yes normal to inspection, No no pedal edema and No calf tenderness Psych Appearance: grossly normal Mental Status: mental status grossly normal Speech and movement: Normal speech and movement present Office Procedures EKG Details: Today, read by me, normal sinus rhythm, right axis deviation, rate 77, QTC 473 milliseconds [id number], Complete Assessment & Plan Assessment & Plan (1) CAD (coronary artery disease): Comment: Sees Dr Mai Code(s): I25.10 - Atherosclerotic heart disease of [place] coronary artery without angina pectoris Category: Medical Plan: History of CAD with coronary artery bypass grafting 01/29/2024. Echo from 07/12/2025 showing EF 60-65%, no wall motion abnormality and [id number]-vx-bhezokoa . EKG today showing sinus rhythm with no acute ST or T-wave abnormalities, rate 77. No anginal symptoms. Continue aspirin indefinitely. Continue metoprolol for good heart rate and blood pressure control. Continue rosuvastatin and Zetia with ideal LDL goal less than 70. Cardiology follow-up 6 months, sooner if needed. (2) S/P CABG x 2: Comment: 01/29/2024. Jin to LAD, SVG to OMB, no graft to the RCA as vessel was too diseased. Code(s): Z95.1 - Presence of aortocoronary bypass graft Category: Surgical Plan: As above - sternal incision fully intact, no signs of redness, swelling or skin issues. (3) Aortic stenosis: Code(s): I35.0 - Nonrheumatic aortic (valve) stenosis Category: Medical Plan: Known aortic stenosis. Recent echo with [id number]-bg-temwkmml . Will follow with repeat echo in 1 year. (4) Hx of carotid stenosis: Comment: stable with yearly surveillance Code(s): Z86.79 - Personal history of other diseases of the circulatory system Category: Medical Plan: Carotid ultrasound 09/29/2024 shows right ICA 50-79% stenosis, left ICA 0 49% stenosis. Follows with Dr. Werner. (5) Hospital discharge follow-up: Code(s): Z51.89 - Encounter for other specified aftercare Category: Medical Plan: Hospital notes reviewed (6) Preprocedural cardiovascular examination: Code(s): Z01.810 - Encounter for preprocedural cardiovascular examination Category: Medical Plan: She anticipates having upcoming colonoscopy. No date yet. She can proceed with intermediate cardiac risk. Aspirin can be held if needed for the procedure and plan restart as soon as cleared by surgeon to do so. Call/consult Cardiology if needed Plan Discussion Notes I reviewed the patient's recent hospitalization and subsequent illness. I explained that her heart is pumping strong and the mild to moderate aortic stenosis is stable, so her heart should be able to tolerate a non-cardiac surgery. We performed an EKG in the office today, and I informed her that the result was good, showing a normal rhythm. I examined her sternal scar and reassured her that there are no signs of infection and that the changes she has noticed are likely due to her recent weight loss and are not concerning. I strongly recommended that she postpone any procedures until she has fully recovered from her illness and regained her strength, as proceeding now would be too much of a strain on her system. I advised no changes to her cardiac medications and recommended a follow-up visit in six months. Patient Instructions - Continue to take your heart medications as prescribed. - We performed an EKG today, and it looks good. - Your heart is strong enough for surgery, but you should wait to have any procedures until you are fully recovered from your recent illness. - Please rest, eat well, and drink plenty of fluids to get your strength back. - The changes you have noticed in your chest scar are not a sign of infection and are likely due to your recent weight loss. - We will continue to watch your heart valve. - Please schedule a follow-up appointment in six months. Patient was informed and verbally consented to the use of an ambient scribe for clinic note documentation during this visit. Visit time spent on chart review, interview, assessment, orders, documentation. Orders: Orders CA echo transthoracic complete 1 Year I25.10 - Atherosclerotic heart disease of [place] coronary artery without angina pectoris, I35.0 - Nonrheumatic aortic (valve) stenosis Coding Level of Care Code Est Pt Level 4 (46545) Add On Problem Visit Only Diagnoses CAD (coronary artery disease) I25.10 S/P CABG x 2 Z95.1 Aortic stenosis I35.0 Hx of carotid stenosis Z86.79 Hospital discharge follow-up Z51.89 Preprocedural cardiovascular examination Z01.810 CPT Codes EKG - CPT: [id number], Complete ([id number]) Time Spent (min) 32
--- OUTSIDE RECORDS SUMMARY | 2025-08-02 09:31 | XMS_ITS | Patient Health Record ---
Author Organization [facility] [place] Address [address] [place] [address] Care Team Providers Care Falsework Builder Name Role Phone Velia RODRIGUEZ, Traci Mina Primary Care Provider Un available Black, Monica Unavailable [phone] Allergies Allergen (clinical drug ingredient) Drug/Non Drug [...] W/U Status Risk Notes Problem Verruca plantaris (20658904) Verruca Plantaris (078.19) Active confirmed Problem Onychomycosis (687074720) Onychomycosis (110.1) Active confirmed Problem Pain in limb (42926241) Pain in Limb (729.5) Active confirmed Plan Of Treatment Pending Test Test Name Order Date [id number] NAIL, 6 OR MORE 11/05/2012 [id number] NAIL, 6 OR MORE 02/09/2013 [id number] NAIL, 6 OR MORE 05/11/2013 [id number] Destruction, 1-14 11/05/2012 Insurance Providers Payer Name Payer Address Payer Phone Subscriber Number Group Number Insured Name Patient Relationship to Insured Coverage Start Date Coverage End Date [facility] [place] [address] [place] [address] [phone] [id number] Carlene Gannon Self - patient is the insured Medical (General) History Medical History History ICD Code angina hyperlipidemia heart disease chicken pox measles mumps vascular grafts Surgical History Surgery Date(Month/Year) bladder surgery heart catheter angioplasty Hospitalization History Reason Date(Month/Year) [place], 3 days, medication check, heart enzymes 04/2013
[2025-08-02 09:34] VITALS: BP 130/68; PULSE 75; BMI 21.5
== END 2025-08-02 10:12 | disposition home or self-care (01) ==
LOC: HO.HCS 09:13
PROVIDERS: PCP Internal Medicine; Visit Provider Nurse Practitioner Family
DX: I25.10 Atherosclerotic heart disease of native coronary artery without angina pectoris (principal); Z95.1 Presence of aortocoronary bypass graft; I35.0 Nonrheumatic aortic (valve) stenosis; Z86.79 Personal history of other diseases of the circulatory system; Z51.89 Encounter for other specified aftercare; Z01.810 Encounter for preprocedural cardiovascular examination
CPT/HCPCS: 93010; 99214; G2211

== ENCOUNTER → 2025-08-02 09:12 | Outpatient (BNVA) | payer MEDICARE, BC, SELFPAY | PROVIDERS: PCP Internal Medicine; Visit Provider Nurse Practitioner Family | DX: Z01.810 Encounter for preprocedural cardiovascular examination (principal); Z09 Encounter for follow-up examination after completed treatment for conditions other than malignant neoplasm; I35.0 Nonrheumatic aortic (valve) stenosis; I25.10 Atherosclerotic heart disease of native coronary artery without angina pectoris; I10 Essential (primary) hypertension; I97.190 Other postprocedural cardiac functional disturbances following cardiac surgery; Z86.79 Personal history of other diseases of the circulatory system; Z95.1 Presence of aortocoronary bypass graft | CPT/HCPCS: 93005; 99212 ==